=== PATIENT | female | born 1990 | race Caucasian/White ===

== ENCOUNTER 2020-11-16 11:09 | Outpatient (REF) | payer OTHER, SELFPAY ==
[2020-11-16 13:44] LABS: Hematocrit 38.9 % (37-47); Hemoglobin 12.9 g/dl (12.0-16.0); Mean Corpuscular HGB Conc 33.2 g/dl (31.0-35.0); Mean Corpuscular Hemoglobin 29.1 pg (27.0-33.0); Mean Corpuscular Volume 87.8 fL (80-98); Mean Platelet Volume 10.5 fL (9.4-12.3); Platelet Count 291 X10*3/uL (160-400); Red Blood Count 4.43 X10*6/uL (4.20-5.50); Red Cell Distribution Width 12.3 % (11.0-16.0); White Blood Count 6.8 X10*3/uL (4.8-10.8)
[2020-11-16 14:25] LABS: Alanine Aminotransferase 9 U/L (0-31); Albumin Level 4.6 g/dL (3.5-5.0); Alkaline Phosphatase 78 U/L (39-117); Anion Gap 13 (12-20); Aspartate Amino Transferase 18 U/L (5-31); Bilirubin Direct 0.2 mg/dL (0.0-0.5); Bilirubin Total 0.7 mg/dL (0.0-1.0); Blood Urea Nitrogen 9 mg/dL (9-16); Calcium 9.1 mg/dL (8.4-10.2); Carbon Dioxide 25 mmol/L (22-29); Chloride 107 mmol/L (96-108); Cholesterol 173 mg/dL; Estimated Glomerular Filt Rate > 60; Glucose Fasting 104 mg/dL (60-99); HDL Cholesterol 50 mg/dL; LDL Cholesterol Calculated 113 mg/dl; Potassium 4.6 mmol/L (3.3-5.1); Sodium 140 mmol/L (135-145); Total Protein 7.4 g/dL (6.5-8.0); Triglycerides 52 mg/dL
[2020-11-16 14:36] LABS: TSH reflex Free T4 0.61 uIU/mL (0.32-4.0)
== END 2020-11-16 11:10 | disposition home or self-care (01) ==
LOC: HO.WFDLDS 11:09
PROVIDERS: Visit Provider Hospitalist
DX: Z00.00 Encounter for general adult medical examination without abnormal findings (principal)
CPT/HCPCS: 36415; 80048; 80061; 80076; 84443; 85027

== ENCOUNTER 2021-04-22 14:08 | Outpatient (REF) | payer OTHER, SELFPAY ==
[2021-04-22 15:03] LABS: MANUAL DIFF FLAG NO
[2021-04-22 15:07] LABS: Basophils Percent Auto 0.3 % (0-2); Eosinophils Absolute Auto 0.1 X10*3/uL (0.0-0.4); Eosinophils Percent Auto 0.9 % (0-4); Hematocrit 39.8 % (37-47); Hemoglobin 13.5 g/dl (12.0-16.0); Imm Gran Abs Auto 0.06 X10*3/uL (0.00-0.03); Imm Gran Pct Auto 0.6 % (0.0-0.4); Lymphocytes Absolute Auto 2.2 X10*3/uL (1.2-4.9); Lymphocytes Percent Auto 22.6 % (20-40); Mean Corpuscular HGB Conc 33.9 g/dl (31.0-35.0); Mean Corpuscular Hemoglobin 29.5 pg (27.0-33.0); Mean Corpuscular Volume 86.9 fL (80-98); Mean Platelet Volume 10.4 fL (9.4-12.3); Monocytes Absolute Auto 0.5 X10*3/uL (0.1-1.2); Neutrophils Absolute Auto 6.8 X10*3/uL (2.0-8.3); Neutrophils Percent Auto 70.6 % (45-73); Platelet Count 312 X10*3/uL (160-400); Red Blood Count 4.58 X10*6/uL (4.20-5.50); White Blood Count 9.6 X10*3/uL (4.8-10.8)
[2021-04-22 15:21] LABS: Alanine Aminotransferase 8 U/L (0-31); Albumin Level 4.5 g/dL (3.5-5.0); Alkaline Phosphatase 75 U/L (39-117); Anion Gap 15 (12-20); Aspartate Amino Transferase 15 U/L (5-31); Bilirubin Total 0.5 mg/dL (0.0-1.0); Blood Urea Nitrogen 8 mg/dL (9-16); Calcium 9.7 mg/dL (8.4-10.2); Carbon Dioxide 24 mmol/L (22-29); Chloride 106 mmol/L (96-108); Estimated Glomerular Filt Rate > 60; Glucose Random 101 mg/dL (60-115); Iron 94 mcg/dL (30-160); Percent Iron Saturation 28 % (15-50); Potassium 4.1 mmol/L (3.3-5.1); Sodium 141 mmol/L (135-145); Total Iron Binding Capacity 332 mcg/dL (228-428); Total Protein 7.4 g/dL (6.5-8.0); Unsaturated Iron Binding 238 ug/dL
[2021-04-22 15:46] LABS: Vitamin B12 805 pg/mL (200-900)
[2021-04-25 15:22] LABS: Gliadin Deamidated IgA Ab 3 Units; Gliadin Deamidated IgG Ab 1 Units
[2021-04-25 22:26] LABS: Transglutaminase Ab IgG 1 U/mL; Transglutaminase IgA 1 U/mL
[2021-04-26 13:26] LABS: Vitamin D 25-OH, D2 <4 ng/mL; Vitamin D 25-OH, D3 47 ng/mL; Vitamin D 25-OH, Total 47 ng/mL (30-100)
== END 2021-04-22 14:09 | disposition home or self-care (01) ==
LOC: HO.LAB 14:08
PROVIDERS: PCP Internal Medicine; Visit Provider Internal Medicine
DX: R10.9 Unspecified abdominal pain (principal); D64.9 Anemia, unspecified; E66.3 Overweight; E55.9 Vitamin D deficiency, unspecified
CPT/HCPCS: 36415; 80053; 82306; 82607; 83516; 83540; 85025

== ENCOUNTER 2021-07-30 12:17 | Emergency (ER) | payer OTHER, SELFPAY ==
[2021-07-30 12:23] VITALS: BP 143/95; PULSE 115; RESP 18; TEMP 37.2; O2SAT 98; BMI 31.1
--- NOTE | 2021-07-30 13:22 | ED.ANXIETY ---
HPI - Anxiety General Chief Complaint: Anxiety <Linda Ragsdale MD - Last Filed: 07/30/21 13:23> Stated Complaint: panic attack <Linda Ragsdale MD - Last Filed: 07/30/21 13:23> Time Seen by Provider: 07/30/21 13:18 <Linda Ragsdale MD - Last Filed: 07/30/21 13:23> History of Present Illness HPI narrative: 31 years old history of anxiety. History of fibromyalgia. Presented today feeling anxious. Patient denies any suicidal homicidal ideation. Requesting for help. Has no specific complaints. <Linda Ragsdale MD - Last Filed: 07/30/21 13:23> Related Data Home Medications: Home Medications Medication Instructions Recorded Confirmed duloxetine 20 mg capsule,delayed 1 cap PO DAILY 07/30/21 07/30/21 release Previous Rx's Medication Instructions Recorded aripiprazole 5 mg tablet (Abilify) 5 mg PO BEDTIME 30 Days #30 tab 04/21/21 escitalopram oxalate 10 mg tablet 10 mg PO DAILY 30 Days #30 tab 05/15/21 ropinirole 0.5 mg tablet 0.5 mg PO BEDTIME 30 Days #30 tab 07/04/21 <Linda Ragsdale MD - Last Filed: 07/30/21 13:23> Allergies/Adverse Reactions: Allergies Allergy/AdvReac Type Severity Reaction Status Date / Time face paint Allergy Intermediate face Uncoded 04/21/21 17:45 breaks out epsom salt AdvReac Severe nimbness Uncoded 04/21/21 17:45 from head to toe. <Linda Ragsdale MD - Last Filed: 07/30/21 13:23> Review of Systems Review of Systems: Positive anxiety Positive weakness All systems reviewed otherwise negative <Linda Ragsdale MD - Last Filed: 07/30/21 13:23> Yes all other systems are reviewed and are negative <Linda Ragsdale MD - Last Filed: 07/30/21 13:23> PMFSH Past Medical History Attestation statement: The following information was validated with the patient. 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 Mother No problems noted. Family/Other Medical history unknown Substance use disorder Family/Other Mental health disorder <Linda Ragsdale MD - Last Filed: 07/30/21 13:23> Social History Social History: Social History Housing: Apartment Alcohol intake: current Alcohol intake frequency: holidays/special occasions only Patient Tobacco Use Status: Never used Tobacco e-Cigarette/Vaping Use: Never Used Second Hand Smoke Exposure: Yes Advance Directives: No Advance Directives Information Provided: Yes service: No Current occupational status: unemployed <Linda Ragsdale MD - Last Filed: 07/30/21 13:23> Physical Exam Vital Signs: Vital Signs: Last Vital Signs Temp 98.8 F 07/30/21 15:49 Pulse 109 H 07/30/21 15:49 Resp 20 07/30/21 15:49 BP 119/71 07/30/21 15:49 Pulse Ox 99 07/30/21 15:49 Body Mass Index 31.1 Appearance: Alert. Oriented X3. No acute distress. Eyes: Pupils equal, round and reactive to light. ENT: Pharynx normal. Neck: Normal inspection. Neck supple. No lymph nodes noted. No crepitus CVS: Normal heart rate and rhythm. Pulses normal. Normal S1 and S2 Respiratory: No respiratory distress. Breath sounds normal. No Wheezing. No rales Abdomen: Soft and nontender. No rigidity. No distention. good BS x4 Skin: Skin warm and dry. Normal skin color. Normal skin turgor. Extremities: No lower extremity edema. Neurovascular intact to all extremities. No Lacerations. No Rash. Cranial nerves grossly intact Neuro: Oriented X 3. No motor deficit. No sensory deficit. Moving all extermities. No slurred speech <Linda Ragsdale MD - Last Filed: 07/30/21 13:23> Vital Signs: Last Vital Signs Temp 98.8 F 07/30/21 15:49 Pulse 109 H 07/30/21 15:49 Resp 20 07/30/21 15:49 BP 119/71 07/30/21 15:49 Pulse Ox 99 07/30/21 15:49 Body Mass Index 31.1 <Daniel Fall MD - Last Filed: 07/30/21 17:27> MDM - Anxiety MDM Narrative Medical decision making narrative: Patient seen by therapist no suicidal ideation/ homicidal feelings advised to follow-up as outpatient with his psychiatrist/PCP <Daniel Fall MD - Last Filed: 07/30/21 17:27> Lab Data Labs: Lab Results 07/30/21 Range/Units 14:17 Urine Opiates Screen Not Detected (Not Detect) Urine Fentanyl Screen Not Detected (Not Detect) Ur Barbiturates Screen Not Detected (Not Detect) Ur Phencyclidine Scrn Not Detected (Not Detect) Ur Amphetamines Screen Not Detected (Not Detect) U Benzodiazepines Scrn Not Detected (Not Detect) Urine Cocaine Screen Not Detected (Not Detect) U Marijuana (THC) Screen Not Detected (Not Detect) <Linda Ragsdale MD - Last Filed: 07/30/21 13:23> Lab Results 07/30/21 Range/Units 14:17 Urine Opiates Screen Not Detected (Not Detect) Urine Fentanyl Screen Not Detected (Not Detect) Ur Barbiturates Screen Not Detected (Not Detect) Ur Phencyclidine Scrn Not Detected (Not Detect) Ur Amphetamines Screen Not Detected (Not Detect) U Benzodiazepines Scrn Not Detected (Not Detect) Urine Cocaine Screen Not Detected (Not Detect) U Marijuana (THC) Screen Not Detected (Not Detect) <Daniel Fall MD - Last Filed: 07/30/21 17:27> Discharge Plan Discharge Clinical Impression: EMELY (generalized anxiety disorder) <Linda Ragsdale MD - Last Filed: 07/30/21 13:23> Patient Disposition: Home, Self-Care <Linda Ragsdale MD - Last Filed: 07/30/21 13:23> Instructions: Anxiety (ED) <Linda Ragsdale MD - Last Filed: 07/30/21 13:23> Additional Instructions: Follow-up with your PCP and take your medications as prescribed <Linda Ragsdale MD - Last Filed: 07/30/21 13:23> Prescriptions: No Action escitalopram oxalate 10 mg tablet 10 mg PO DAILY 30 Days Qty: 30 RF: 6 ropinirole 0.5 mg tablet 0.5 mg PO BEDTIME 30 Days Qty: 30 RF: 0 duloxetine 20 mg capsule,delayed release(DR/EC) 1 cap PO DAILY RF: 0 aripiprazole [Abilify] 5 mg tablet 5 mg PO BEDTIME 30 Days Qty: 30 RF: 0 <Linda Ragsdale MD - Last Filed: 07/30/21 13:23>
[2021-07-30 15:09] LABS: Amphetamine Screen Urine Not Detected (Not Detect); Barbiturates, Urine Not Detected (Not Detect); Benzodiazepines Screen Urine Not Detected (Not Detect); Cannabinoid Screen Urine Not Detected (Not Detect); Cocaine Screen Urine Not Detected (Not Detect); Fentanyl, urine Not Detected (Not Detect); Opiate Screen Urine Not Detected (Not Detect); Phencyclidine Screen Urine Not Detected (Not Detect)
--- NOTE | 2021-07-30 15:10 | PC.NURSE ---
per n, clinical reviewer to be here for eval within the hour.
[2021-07-30] MEDS: LORazepam 0.5 MG TABLET PO (15:36)
[2021-07-30 15:49] VITALS: BP 119/71; PULSE 109; RESP 20; TEMP 37.1; O2SAT 99
[2021-07-30] MEDS: Ondansetron ODT 4 MG TAB.RAPDIS TRANSLINGU (17:29)
--- NOTE | 2021-07-30 17:36 | MHC.CARE ---
CARE Team met with pt after crisis evaluation was requested and [facility] asked for pt to be screened by the CARE Team before a clinician was sent to see her. Pt is alert and oriented x4, sitting in a wheel chair in her room in the behavioral health pod, dressed in hospital attire. Pt is help seeking. Eye contact intermittent. Speech within normal limits. Mood is anxious with congruent affect. Pt does not seem to be responding to internal stimuli. Pt denies SI/HI/ or self harm urges. Pt denies history of SI/HI/self harm. Pt's mom reports that pt has been off her psychiatric medications for a week and that pt needs something to treat the episodes of shaking. CARE Team educated pt and pt's mom on the levels of psychiatric care. Pt declined psychiatric resources at this time as her PCP prescribes her psychiatric medications and she already has a therapist. Pt feels safe to go home and follow up with her PCP on Sunday. Plan is for pt to be discharged home and to follow up with PCP on Sunday. This disposition was discussed and agreed upon by ED attending physican, Dr. Fall, and on-call psychiatrist, Dr. Ng.
== END 2021-07-30 17:42 | disposition home or self-care (01) ==
PROVIDERS: Emergency Provider Emergency Medicine Emergency Medical Services; PCP Internal Medicine
DX: F41.1 Generalized anxiety disorder (principal); Z79.899 Other long term (current) drug therapy
CPT/HCPCS: 80307; 99283

== ENCOUNTER 2022-01-06 14:25 | Outpatient (REF) | payer OTHER, SELFPAY ==
--- NOTE | ~2022-01-06 | XR_ITS ---
EXAMINATION: BILATERAL HAND X-RAY CLINICAL INFORMATION: Bilateral hand swelling COMPARISON: None TECHNIQUE: 3 views of each hand FINDINGS: Left: Bone alignment is normal. No fracture or dislocation is seen. There is slight flexion at the DIP joint of the fifth finger. Joint spaces are otherwise normal. Soft tissues are normal. Right: Bone alignment is normal. No fracture or dislocation is seen. Joint spaces are normal. Soft tissues are normal. XR/XR hand RT 2V IMPRESSION: Slight flexion at the DIP joint of the left fifth finger. Otherwise unremarkable exam.
--- NOTE | ~2022-01-06 | XR_ITS ---
EXAMINATION: BILATERAL HAND X-RAY CLINICAL INFORMATION: Bilateral hand swelling COMPARISON: None TECHNIQUE: 3 views of each hand FINDINGS: Left: Bone alignment is normal. No fracture or dislocation is seen. There is slight flexion at the DIP joint of the fifth finger. Joint spaces are otherwise normal. Soft tissues are normal. Right: Bone alignment is normal. No fracture or dislocation is seen. Joint spaces are normal. Soft tissues are normal. XR/XR hand LT 2V IMPRESSION: Slight flexion at the DIP joint of the left fifth finger. Otherwise unremarkable exam.
== END 2022-01-06 14:26 | disposition home or self-care (01) ==
LOC: HO.XRAY 14:25
PROVIDERS: PCP Internal Medicine; Visit Provider Internal Medicine
DX: M79.641 Pain in right hand (principal); M79.642 Pain in left hand
CPT/HCPCS: 73120

== ENCOUNTER 2022-09-19 08:31 | Outpatient (REF) | payer OTHER, SELFPAY ==
[2022-09-19 09:19] LABS: Alanine Aminotransferase 26 U/L (0-31); Albumin Level 4.4 g/dL (3.5-5.0); Alkaline Phosphatase 65 U/L (39-117); Anion Gap 13 (12-20); Aspartate Amino Transferase 30 U/L (5-31); Bilirubin Total 0.5 mg/dL (0.0-1.0); Blood Urea Nitrogen 8 mg/dL (9-16); Calcium 9.3 mg/dL (8.4-10.2); Carbon Dioxide 26 mmol/L (22-29); Chloride 106 mmol/L (96-108); Cholesterol 180 mg/dL; Estimated Glomerular Filt Rate > 60; Glucose Fasting 104 mg/dL (60-99); HDL Cholesterol 46 mg/dL; LDL Cholesterol Calculated 115 mg/dl; Potassium 4.2 mmol/L (3.3-5.1); Sodium 141 mmol/L (135-145); Total Protein 7.1 g/dL (6.5-8.0); Triglycerides 99 mg/dL
== END 2022-09-19 08:32 | disposition home or self-care (01) ==
LOC: HO.LAB 08:31
PROVIDERS: PCP Internal Medicine; Visit Provider Internal Medicine
DX: Z00.00 Encounter for general adult medical examination without abnormal findings (principal)
CPT/HCPCS: 36415; 80053; 80061

== ENCOUNTER 2022-10-19 17:06 | Emergency (ER) | payer OTHER, SELFPAY ==
--- NOTE | ~2022-10-19 | CT_ITS ---
EXAMINATION: CT HEAD WITHOUT CONTRAST CLINICAL INFORMATION: Increased head pressure. Losing balance. COMPARISON: None. TECHNIQUE: Contiguous axial imaging was performed from the skullbase to vertex without intravenous administration of contrast. This CT examination was performed using dose optimization techniques as appropriate, variously including the following: *Automated exposure control *Adjustment of mA and/or kV according to patient size (this includes techniques or standardized protocols for targeted exams where dose is matched to indication/reason for exam; i.e. extremities or head) *Use of iterative reconstruction technique DLP: 622 mGy-cm. FINDINGS: There is no evidence of acute intracranial hemorrhage or territorial infarction. No abnormal mass effect or midline shift is seen. Miller to white matter differentiation is well preserved. No extra-axial fluid collections are identified. The ventricles are normal in size. There is no abnormal attenuation within the brain parenchyma. The osseous structures and soft tissues are normal. The mastoid air cells and visualized portions of the paranasal sinuses are well aerated. CT/CT head/brain wo IV con IMPRESSION: No acute intracranial pathology.
[2022-10-19 17:09] VITALS: BP 162/74; PULSE 88; RESP 16; TEMP 36.8; O2SAT 98; BMI 24.2
[2022-10-19 18:49] LABS: MANUAL DIFF FLAG NO
[2022-10-19 18:50] LABS: Basophils Absolute Auto 0.1 X10*3/uL (0.0-0.2); Basophils Percent Auto 0.5 % (0-2); Eosinophils Absolute Auto 0.3 X10*3/uL (0.0-0.4); Eosinophils Percent Auto 2.6 % (0-4); Hematocrit 37.5 % (37.0-47.0); Hemoglobin 12.7 g/dl (12.0-16.0); Imm Gran Abs Auto 0.07 X10*3/uL (0.00-0.03); Imm Gran Pct Auto 0.6 % (0.0-0.4); Lymphocytes Absolute Auto 3.1 X10*3/uL (1.2-4.9); Lymphocytes Percent Auto 26.4 % (20-40); Mean Corpuscular HGB Conc 33.9 g/dl (31.0-35.0); Mean Corpuscular Volume 88.7 fL (80.0-98.0); Mean Platelet Volume 10.2 fL (9.4-12.3); Monocytes Absolute Auto 0.7 X10*3/uL (0.1-1.2); Monocytes Percent Auto 5.6 % (2-11); Neutrophils Absolute Auto 7.4 x10*3/uL (2.0-8.3); Neutrophils Percent Auto 64.3 % (45-73); Platelet Count 311 X10*3/uL (160-400); Red Blood Count 4.23 X10*6/uL (4.20-5.50); Red Cell Distribution Width 12.4 % (11.0-16.0); White Blood Count 11.5 X10*3/uL (4.8-10.8)
--- NOTE | 2022-10-19 18:52 | ECG_ITS ---
Test Reason : FALL Blood Pressure : / mmHG Vent. Rate : 073 BPM Atrial Rate : 073 BPM P-R Int : 132 ms QRS Dur : 076 ms QT Int : 394 ms P-R-T Axes : 045 077 011 degrees QTc Int : 434 ms Normal sinus rhythm Normal ECG No previous ECGs available Referred By: Barbara Ramesh Electronically Signed By:Los Springer
[2022-10-19 19:09] LABS: Alanine Aminotransferase 11 U/L (0-31); Albumin Level 4.5 g/dL (3.5-5.0); Alkaline Phosphatase 82 U/L (39-117); Anion Gap 16 (12-20); Aspartate Amino Transferase 16 U/L (5-31); Bilirubin Total 0.4 mg/dL (0.0-1.0); Blood Urea Nitrogen 8 mg/dL (9-16); Calcium 9.6 mg/dL (8.4-10.2); Carbon Dioxide 25 mmol/L (22-29); Chloride 103 mmol/L (96-108); Creatinine Clr Calc Pharmacy 100.2; Estimated Glomerular Filt Rate > 60; Glucose Fasting 92 mg/dL (60-99); Sodium 140 mmol/L (135-145); Total Protein 7.2 g/dL (6.5-8.0)
[2022-10-19 19:49] LABS: MANUAL DIFF FLAG NO
[2022-10-19 19:57] LABS: Basophils Percent Auto 0.3 % (0-2); Eosinophils Absolute Auto 0.3 X10*3/uL (0.0-0.4); Eosinophils Percent Auto 2.3 % (0-4); Hematocrit 37.6 % (37.0-47.0); Hemoglobin 12.6 g/dl (12.0-16.0); Imm Gran Abs Auto 0.09 X10*3/uL (0.00-0.03); Imm Gran Pct Auto 0.8 % (0.0-0.4); Lymphocytes Absolute Auto 3.1 X10*3/uL (1.2-4.9); Lymphocytes Percent Auto 27.2 % (20-40); Mean Corpuscular HGB Conc 33.5 g/dl (31.0-35.0); Mean Corpuscular Hemoglobin 29.8 pg (27.0-33.0); Mean Corpuscular Volume 88.9 fL (80.0-98.0); Mean Platelet Volume 10.5 fL (9.4-12.3); Monocytes Absolute Auto 0.7 X10*3/uL (0.1-1.2); Monocytes Percent Auto 5.6 % (2-11); Neutrophils Absolute Auto 7.4 x10*3/uL (2.0-8.3); Neutrophils Percent Auto 63.8 % (45-73); Platelet Count 328 X10*3/uL (160-400); Red Blood Count 4.23 X10*6/uL (4.20-5.50); Red Cell Distribution Width 12.4 % (11.0-16.0); White Blood Count 11.5 X10*3/uL (4.8-10.8)
[2022-10-19 19:59] LABS: Appearance Urine Cloudy; Color Urine Yellow; Glucose Urine UA Negative (Negative); Leukocyte Esterase Urine Negative (Negative); Nitrite Urine Negative (Negative); PH 7.5 (5.0-9.0); Specific Gravity - Urine 1.015 (1.005-1.025); Urine Blood Negative (Negative); Urine Ketones Negative (Negative); Urine Protein Negative (Neg-Trace)
[2022-10-19 20:00] LABS: Amphetamine Screen Urine Not Detected (Not Detect); Barbiturates, Urine Not Detected (Not Detect); Benzodiazepines Screen Urine Not Detected (Not Detect); Cannabinoid Screen Urine Not Detected (Not Detect); Cocaine Screen Urine Not Detected (Not Detect); Fentanyl, urine Not Detected (Not Detect); Opiate Screen Urine Not Detected (Not Detect); Phencyclidine Screen Urine Not Detected (Not Detect)
[2022-10-19 20:14] LABS: Alanine Aminotransferase 9 U/L (0-31); Albumin Level 4.5 g/dL (3.5-5.0); Alkaline Phosphatase 82 U/L (39-117); Anion Gap 13 (12-20); Aspartate Amino Transferase 16 U/L (5-31); Bilirubin Direct < 0.2 mg/dL (0.0-0.5); Bilirubin Total 0.4 mg/dL (0.0-1.0); Blood Urea Nitrogen 8 mg/dL (9-16); Calcium 9.1 mg/dL (8.4-10.2); Carbon Dioxide 26 mmol/L (22-29); Chloride 102 mmol/L (96-108); Creatinine Clr Calc Pharmacy 100.2; Estimated Glomerular Filt Rate > 60; Glucose Random 95 mg/dL (60-115); HCG Quantitative < 2 mIU/mL; Potassium 3.8 mmol/L (3.3-5.1); Sodium 137 mmol/L (135-145); Total Protein 7.1 g/dL (6.5-8.0); Troponin-I High Sensitivity < 3.5 ng/L (<3.5-17.0)
--- NOTE | 2022-10-19 21:33 | ED.HA ---
HPI - Headache General Chief Complaint: Headache Stated Complaint: head pressure, sent from urgent care Time Seen by Provider: 10/19/22 21:14 Source: patient and family Mode of arrival: ambulatory History of Present Illness HPI Narrative: 32-year-old female who presents with headache for about 6 months which is been worsening over time and is intermittent in nature and she describes as primarily over the frontal aspect without visual or speech changes. Patient states that she had a mechanical fall last week. She otherwise denies any fever, chills, history of migraines, unilateral numbness/weakness/tingling. Related Data Home Medications Medication Instructions Recorded Confirmed prazosin 2 mg capsule 2 mg PO BEDTIME 03/13/22 09/14/22 Previous Rx's Medication Instructions Recorded escitalopram oxalate 10 mg tablet 10 mg PO DAILY 30 days #30 tabs 11/10/21 buspirone 10 mg tablet 10 mg PO TID 30 days #90 tabs 01/08/22 loratadine 10 mg tablet 10 mg PO DAILY 90 days #90 tabs 06/06/22 Allergies Allergy/AdvReac Type Severity Reaction Status Date / Time pine nut Allergy Mild Rash Verified 10/19/22 16:34 face paint Allergy Intermediate face Uncoded 10/19/22 16:34 breaks out epsom salt AdvReac Severe nimbness Uncoded 10/19/22 16:34 from head to toe. Review of Systems Review of Systems: Pertinent positives and negatives as stated in HPI [facility] Past Medical History Source: nursing notes reviewed Medical History Abdominal pain EMELY (generalized anxiety disorder) Hypovitaminosis D Insomnia due to other mental disorder Left hand pain Mild major depression, single episode Overweight (BMI 25.0-29.9) Physical exam Right hand pain Seizure-like activity Surgical History History of carpal tunnel surgery Family History Family History Father No problems noted. Mother No problems noted. Family/Other Medical history unknown Substance use disorder Family/Other Mental health disorder Social History Social History Housing: Apartment Alcohol intake: current Alcohol intake frequency: holidays/special occasions only Patient Tobacco Use Status: Never used Tobacco e-Cigarette/Vaping Use: Never Used Second Hand Smoke Exposure: Yes Advance Directives: No Advance Directives Information Provided: No service: No Current occupational status: unemployed Cognitive needs: No Hearing needs: No Vision needs: No Physical Exam Vital Signs: Vital Signs: Last Vital Signs Temp 98.2 F 10/19/22 17:09 Pulse 88 10/19/22 17:09 Resp 16 10/19/22 17:09 BP 162/74 H 10/19/22 17:09 Pulse Ox 98 10/19/22 17:09 O2 Del Method 10/19/22 17:09 BMI result Body Mass Index 24.2 VITAL SIGNS: Reviewed. GENERAL: Well developed, well nourished, in no acute distress. HEAD: Normocephalic/atraumatic EYES: PERRLA, EOMI EARS: Ext canals without abnormality, TMs non-bulging and non-erythematous NOSE: Nares patent bilateral with boggy turbinates noted bilaterally, with tenderness on palpation over maxillary OROPHARYNX: no oral lesions noted, posterior pharynx clear NECK: Supple, no adenopathy LUNGS: Normal breath sounds. No adventitious sounds or accessory muscle use. SpO2<98> CARDIOVASCULAR: Regular rate and rhythm without noted murmurs ABDOMEN: Soft, non-tender, non-distended with bowel sounds. MUSCULOSKELETAL: No tenderness, deformities, or effusions noted on gross inspection. EXTREMITIES: No cyanosis, clubbing or edema. SKIN: Inspection of the skin reveals no rashes NEUROLOGIC: Alert and oriented x 4. Strength and sensation to light touch were grossly intact x 4. Medical Decision Making Medical Decision Making [facility] Narrative: 32-year-old female and on review of all investigations my interpretation is a patient is experiencing significant sinus pressure and pain likely secondary to the weather/temperature changes. 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 Differential Diagnosis Differential Diagnoses: The differential diagnosis associated with the presentation includes Please see the discussion above Lab Data [facility] Lab Attestation statement: I reviewed the patient's lab results. Please see the discussion above 10/19/22 19:39 10/19/22 19:39 Labs: Lab Results 02/02/23 02/02/23 02/02/23 Range/Units 18:45 18:45 19:39 WBC 11.5 H 11.5 H (4.8-10.8) X10*3/uL RBC 4.23 4.23 (4.20-5.50) X10*6/uL Hgb 12.7 12.6 (12.0-16.0) g/dl Hct 37.5 37.6 (37.0-47.0) % MCV 88.7 88.9 (80.0-98.0) fL MCH 30.0 29.8 (27.0-33.0) pg MCHC 33.9 33.5 (31.0-35.0) g/dl RDW 12.4 12.4 (11.0-16.0) % Plt Count 311 328 (160-400) X10*3/uL MPV 10.2 10.5 (9.4-12.3) fL Immature Gran % (Auto) 0.6 H 0.8 H (0.0-0.4) % Neut % (Auto) 64.3 63.8 (45-73) % Lymph % (Auto) 26.4 27.2 (20-40) % [place] % (Auto) 5.6 5.6 (2-11) % Eos % (Auto) 2.6 2.3 (0-4) % Baso % (Auto) 0.5 0.3 (0-2) % Lymph # (Auto) 3.1 3.1 (1.2-4.9) X10*3/uL [place] # (Auto) 0.7 0.7 (0.1-1.2) X10*3/uL Eos # (Auto) 0.3 0.3 (0.0-0.4) X10*3/uL Baso # (Auto) 0.1 0.0 (0.0-0.2) X10*3/uL Abs Immat Gran (auto) 0.07 H 0.09 H (0.00-0.03) X10*3/uL Absolute Neuts (auto) 7.4 7.4 (2.0-8.3) x10*3/uL Absolute Nucleated RBC 0.000 0.000 (0.0-0.012) X10*3/uL Nucleated RBC % (auto) 0.0 0.0 (0.0-0.2) /100WBC Sodium 140 (135-145) mmol/L Potassium 4.0 (3.3-5.1) mmol/L Chloride 103 (96-108) mmol/L Carbon Dioxide 25 (22-29) mmol/L Anion Gap 16 (12-20) BUN 8 L (9-16) mg/dL Creatinine 0.74 (0.5-1.4) mg/dL Estim Creat Clear Calc 100.2 Estimated GFR > 60 Random Glucose (60-115) mg/dL Fasting Glucose 92 (60-99) mg/dL Calcium 9.6 (8.4-10.2) mg/dL Total Bilirubin 0.4 (0.0-1.0) mg/dL Direct Bilirubin (0.0-0.5) mg/dL AST 16 (5-31) U/L ALT 11 (0-31) U/L Alkaline Phosphatase 82 (39-117) U/L Troponin I High Sens (<3.5-17.0) ng/L Total Protein 7.2 (6.5-8.0) g/dL Albumin 4.5 (3.5-5.0) g/dL Beta HCG, Quant mIU/mL Urine Color Urine Appearance Urine pH (5.0-9.0) Ur Specific [place] (1.005-1.025) Urine Protein (Neg-Trace) mg/dL Urine Glucose (UA) (Negative) mg/dL Urine Ketones (Negative) mg/dL Urine Blood (Negative) Urine Nitrite (Negative) Ur Leukocyte Esterase (Negative) Urine Opiates Screen (Not Detect) Urine Fentanyl Screen (Not Detect) Ur Barbiturates Screen (Not Detect) Ur Phencyclidine Scrn (Not Detect) Ur Amphetamines Screen (Not Detect) U Benzodiazepines Scrn (Not Detect) Urine Cocaine Screen (Not Detect) U Marijuana (THC) Screen (Not Detect) 10/19/22 10/19/22 10/19/22 Range/Units 19:39 19:39 19:44 WBC (4.8-10.8) X10*3/uL RBC (4.20-5.50) X10*6/uL Hgb (12.0-16.0) g/dl Hct (37.0-47.0) % MCV (80.0-98.0) fL MCH (27.0-33.0) pg MCHC (31.0-35.0) g/dl RDW (11.0-16.0) % Plt Count (160-400) X10*3/uL MPV (9.4-12.3) fL Immature Gran % (Auto) (0.0-0.4) % Neut % (Auto) (45-73) % Lymph % (Auto) (20-40) % [place] % (Auto) (2-11) % Eos % (Auto) (0-4) % Baso % (Auto) (0-2) % Lymph # (Auto) (1.2-4.9) X10*3/uL [place] # (Auto) (0.1-1.2) X10*3/uL Eos # (Auto) (0.0-0.4) X10*3/uL Baso # (Auto) (0.0-0.2) X10*3/uL Abs Immat Gran (auto) (0.00-0.03) X10*3/uL Absolute Neuts (auto) (2.0-8.3) x10*3/uL Absolute Nucleated RBC (0.0-0.012) X10*3/uL Nucleated RBC % (auto) (0.0-0.2) /100WBC Sodium 137 (135-145) mmol/L Potassium 3.8 (3.3-5.1) mmol/L Chloride 102 (96-108) mmol/L Carbon Dioxide 26 (22-29) mmol/L Anion Gap 13 (12-20) BUN 8 L (9-16) mg/dL Creatinine 0.74 (0.5-1.4) mg/dL Estim Creat Clear Calc 100.2 Estimated GFR > 60 Random Glucose 95 (60-115) mg/dL Fasting Glucose (60-99) mg/dL Calcium 9.1 (8.4-10.2) mg/dL Total Bilirubin 0.4 (0.0-1.0) mg/dL Direct Bilirubin < 0.2 (0.0-0.5) mg/dL AST 16 (5-31) U/L ALT 9 (0-31) U/L Alkaline Phosphatase 82 (39-117) U/L Troponin I High Sens < 3.5 (<3.5-17.0) ng/L Total Protein 7.1 (6.5-8.0) g/dL Albumin 4.5 (3.5-5.0) g/dL Beta HCG, Quant < 2 mIU/mL Urine Color Yellow Urine Appearance Cloudy Urine pH 7.5 (5.0-9.0) Ur Specific [place] 1.015 (1.005-1.025) Urine Protein Negative (Neg-Trace) mg/dL Urine Glucose (UA) Negative (Negative) mg/dL Urine Ketones Negative (Negative) mg/dL Urine Blood Negative (Negative) Urine Nitrite Negative (Negative) Ur Leukocyte Esterase Negative (Negative) Urine Opiates Screen (Not Detect) Urine Fentanyl Screen (Not Detect) Ur Barbiturates Screen (Not Detect) Ur Phencyclidine Scrn (Not Detect) Ur Amphetamines Screen (Not Detect) U Benzodiazepines Scrn (Not Detect) Urine Cocaine Screen (Not Detect) U Marijuana (THC) Screen (Not Detect) 10/19/22 Range/Units 19:44 WBC (4.8-10.8) X10*3/uL RBC (4.20-5.50) X10*6/uL Hgb (12.0-16.0) g/dl Hct (37.0-47.0) % MCV (80.0-98.0) fL MCH (27.0-33.0) pg MCHC (31.0-35.0) g/dl RDW (11.0-16.0) % Plt Count (160-400) X10*3/uL MPV (9.4-12.3) fL Immature Gran % (Auto) (0.0-0.4) % Neut % (Auto) (45-73) % Lymph % (Auto) (20-40) % [place] % (Auto) (2-11) % Eos % (Auto) (0-4) % Baso % (Auto) (0-2) % Lymph # (Auto) (1.2-4.9) X10*3/uL [place] # (Auto) (0.1-1.2) X10*3/uL Eos # (Auto) (0.0-0.4) X10*3/uL Baso # (Auto) (0.0-0.2) X10*3/uL Abs Immat Gran (auto) (0.00-0.03) X10*3/uL Absolute Neuts (auto) (2.0-8.3) x10*3/uL Absolute Nucleated RBC (0.0-0.012) X10*3/uL Nucleated RBC % (auto) (0.0-0.2) /100WBC Sodium (135-145) mmol/L Potassium (3.3-5.1) mmol/L Chloride (96-108) mmol/L Carbon Dioxide (22-29) mmol/L Anion Gap (12-20) BUN (9-16) mg/dL Creatinine (0.5-1.4) mg/dL Estim Creat Clear Calc Estimated GFR Random Glucose (60-115) mg/dL Fasting Glucose (60-99) mg/dL Calcium (8.4-10.2) mg/dL Total Bilirubin (0.0-1.0) mg/dL Direct Bilirubin (0.0-0.5) mg/dL AST (5-31) U/L ALT (0-31) U/L Alkaline Phosphatase (39-117) U/L Troponin I High Sens (<3.5-17.0) ng/L Total Protein (6.5-8.0) g/dL Albumin (3.5-5.0) g/dL Beta HCG, Quant mIU/mL Urine Color Urine Appearance Urine pH (5.0-9.0) Ur Specific [place] (1.005-1.025) Urine Protein (Neg-Trace) mg/dL Urine Glucose (UA) (Negative) mg/dL Urine Ketones (Negative) mg/dL Urine Blood (Negative) Urine Nitrite (Negative) Ur Leukocyte Esterase (Negative) Urine Opiates Screen Not Detected (Not Detect) Urine Fentanyl Screen Not Detected (Not Detect) Ur Barbiturates Screen Not Detected (Not Detect) Ur Phencyclidine Scrn Not Detected (Not Detect) Ur Amphetamines Screen Not Detected (Not Detect) U Benzodiazepines Scrn Not Detected (Not Detect) Urine Cocaine Screen Not Detected (Not Detect) U Marijuana (THC) Screen Not Detected (Not Detect) Independent Interpretation I performed an independent interpretation of an: EKG Interpretation: Normal sinus rhythm, HR-73, no STEMI, [place]/QRS/QTC is within normal limits. Radiology Impression Radiologist Impression: My interpretation is in agreement with radiology's impression of the imaging study. Discharge Plan Discharge Clinical Impression: Frontal sinus pain Patient Disposition: Home, Self-Care Instructions: Sinusitis (ED) Additional Instructions: 1. Recommend the combination of antihistamine (Claritin, Shea) in conjunction with Flonase (fluticasone). Also consider saline sprays within the nose for additional symptom relief. 2. Recommend bedside humidified air while sleeping. 3. Follow-up with primary care provider the next 1-2 days and further discuss possible referral to ENT. Return to the ER for worsening symptoms. Prescriptions: No Action escitalopram oxalate 10 mg tablet 10 mg PO DAILY 30 Days Qty: 30 6RF buspirone 10 mg tablet 10 mg PO TID 30 Days Qty: 90 2RF loratadine 10 mg tablet 10 mg PO DAILY 90 Days Qty: 90 1RF prazosin 2 mg capsule 2 mg PO BEDTIME Referrals: Malika Sifuentes MD [Primary Care Provider] -
== END 2022-10-20 00:02 | disposition home or self-care (01) ==
PROVIDERS: Emergency Medicine; Emergency Provider Student in an Organized Health Care Education/Training Program; PCP Internal Medicine
DX: J32.1 Chronic frontal sinusitis (principal); Z79.899 Other long term (current) drug therapy
CPT/HCPCS: 36415; 70450; 80048; 80053; 80076; 80307; 81003; 84484; 84702; 85025; 93005; 99283; 99284

== ENCOUNTER 2023-02-01 16:32 | Outpatient (REF) | payer OTHER, SELFPAY ==
--- NOTE | ~2023-02-01 | XR_ITS ---
EXAMINATION: XR HIP, RIGHT CLINICAL INFORMATION: Pain. COMPARISON: None available. TECHNIQUE: AP and frog-leg lateral views of the right hip are submitted, together with a frontal view of the pelvis. FINDINGS: Bony alignment and mineralization are normal. No fracture. Alignment is anatomic. The bilateral acetabular joint spaces are symmetric and well-maintained. The femoral heads are smooth. The sacroiliac joints are symmetric and well-maintained. The pubic symphysis is intact. A 4 mm left renal lower pole calculus is questioned. There is a left pelvic phlebolith. No foreign body is noted. XR/XR hip RT min 2V IMPRESSION: 1. No unusual degenerative changes are seen of the hips. 2. A 4 mm left renal lower pole calculus is questioned.
== END 2023-02-01 16:33 | disposition home or self-care (01) ==
LOC: HO.XRAY 16:32
PROVIDERS: PCP Internal Medicine; Visit Provider Internal Medicine
DX: M25.551 Pain in right hip (principal)
CPT/HCPCS: 73502

== ENCOUNTER 2023-04-05 08:53 | Outpatient (AMB) | payer OTHER, SELFPAY ==
--- NOTE | 2023-04-05 07:05 | MHC.OFFVIS ---
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 HPI HPI Comments History of Present Illness Details Mirlande is a 33-year-old female who presents today to the office as a new patient for evaluation of calculus of kidney. 04/05/2023-- The patient has a history of generalized anxiety disorder. She states that she has had intermittent abdominal pain. She had a recent hip x-ray and was told she had a kidney stone. I reviewed the hip x-ray dated 02/01/23. I reviewed the films and there is a calcification that may be in the area of left renal fossa.? I discussed with her about the further evaluation with renal ultrasound. The patient states that she voids every few hours during the day. She denies prior antibiotic treatment for UTI. She states that she has been having irregular menstrual cycles and has an appointment with her RIVET PASSER in April. Evaluation today-- UA -- no sign of infection. On exam, there is diffuse abdominal tenderness and mild CVA tenderness bilaterally. Plan: We are going to get an ultrasound of her kidneys and bladder.. Follow up in 10 weeks pending the ultrasound results. [facility] Medical History Abdominal pain EMELY (generalized anxiety disorder) Hypovitaminosis D Insomnia due to other mental disorder Left hand pain Mild major depression, single episode Overweight (BMI 25.0-29.9) Physical exam Right hand pain Seizure-like activity Surgical History History of carpal tunnel surgery Family History Father No problems noted. Mother No problems noted. Family/Other Medical history unknown Substance use disorder Family/Other Mental health disorder Social History Housing: Apartment Alcohol intake: current Alcohol intake frequency: holidays/special occasions only Patient Tobacco Use Status: Never used Tobacco e-Cigarette/Vaping Use: Never Used Second Hand Smoke Exposure: Yes service: No Current occupational status: unemployed Cognitive needs: No Hearing needs: No Vision needs: No Review of Systems Const All systems reviewed & are unremarkable except as noted in HPI and below Reports no additional complaints Eyes Reports no additional complaints ENT Reports no additional complaints Card Denies dyspnea Resp Denies cough and Denies dyspnea GI Reports no additional complaints Reports no additional complaints Musc Reports no additional complaints Skin/Breast Denies rash and Denies unusual bruising Neuro Reports no additional complaints Psych Reports no additional complaints Endo Reports no additional complaints Salazar/Lymph Reports no additional complaints Aller/Immun Reports no additional complaints Physical Exam Const General: cooperative, healthy appearing and no acute distress Orientation/consciousness: patient oriented x3 HEENT Head: Yes normal to inspection, Yes normocephalic and Yes atraumatic Eyes Conjunctivae: conjunctivae normal Neck Neck: Yes normal visual inspection and Yes trachea midline Chest Chest palpation & inspection: normal inspection of the chest Resp Effort & Inspection: normal respiratory effort Cardio Rate: regular rate GI Inspection: Yes normal to inspection Palpation (GI): Soft to palpation and Tenderness to palpation present (GI) General: Yes CVA tenderness (mild bilaterally) Back/Spine/Pelvis Back: CVA tenderness (mild bilaterally) Skin General skin exam: no rashes or lesions noted Neuro General: patient oriented x3 Extrem General: No edema Psych Appearance: grossly normal Results AMB Urinalysis, Automated UA Leukoctes 70 Rudi/uL Last Edit by ZULEIKA Kuamri on 04/05/23 09:14 1+ Doris Song 04/05/23 09:14 UA Nitrite Negative Last Edit by ZULEIKA Kumari on 04/05/23 09:14 UA Urobilinogen 0.2 mg/dL Last Edit by ZULEIKA Kumari on 04/05/23 09:14 UA Protein 15 mg/dL Last Edit by ZULEIKA Kumari on 04/05/23 09:14 UA pH 6.0 Last Edit by ZULEIKA Kumari on 04/05/23 09:14 UA Blood 0 Art/uL Last Edit by ZULEIKA Kumari on 04/05/23 09:14 UA Specific [place] 1.020 Last Edit by ZULEIKA Kumari on 04/05/23 09:14 UA Ketone Negative Last Edit by ZULEIKA Kumari on 04/05/23 09:14 UA Bilirubin 0 mg/dL Last Edit by ZULEIKA Kumari on 04/05/23 09:14 UA Glucose 0 mg/dL Last Edit by ZULEIKA Kumari on 04/05/23 09:14 Results Reviewed Results Reviewed: Laboratory Last Values Urine pH (Auto) 6.0 04/05/23 09:07 Specific [place] (Auto) 1.020 04/05/23 09:07 Urine Protein (Auto) 15 mg/dL 04/05/23 09:07 Glucose (UA)(Auto) 0 mg/dL 04/05/23 09:07 Urine Ketones (Auto) Negative 04/05/23 09:07 Urine Blood (Auto) 0 Art/uL 04/05/23 09:07 Urine Nitrite (Auto) Negative 04/05/23 09:07 Urine Bilirubin (Auto) 0 mg/dL 04/05/23 09:07 Urine Urobilinogen (Auto) 0.2 mg/dL 04/05/23 09:07 Leukocyte Esterase (Auto) 70 Rudi/uL 04/05/23 09:07 Assessment & Plan Assessment & Plan (1) Abnormal x-ray: Code(s): R93.89 - Abnormal findings on diagnostic imaging of other specified body structures (2) Abdominal pain: Code(s): R10.9 - Unspecified abdominal pain Qualifiers: Abdominal location: generalized Qualified Code(s): R10.84 - Generalized abdominal pain Plan We are going to get an ultrasound of her kidneys and bladder. Follow up in 10 weeks pending the ultrasound results. Orders: Orders US retroperitoneal comp Today R10.9 - Unspecified abdominal pain AMB Urinalysis Automated Today Z13.9 - Encounter for screening, unspecified Patient Instructions: The patient had an opportunity to ask questions regarding treatment plan. All questions were answered. Imaging, Laboratory studies and physical exam results were discussed and reviewed in detail. No major barriers to understanding were identified. The patient expressed understanding and agreement with the above treatment plan. The patient is aware they should contact our office by phone for worsening of their current condition or the appearance of new symptoms. Compliance is encouraged with any medications and followup testing that is ordered. It is a privilege to be allowed the opportunity to participate in the urologic care of your patient. If you have any questions or concerns regarding treatment for the above conditions please do not hesitate to contact me. The office telephone contact is [phone]. This note is constructed in part using voice recognition software. While every effort has been made to ensure accuracy signal supervisor errors may have been included. Yours sincerely, Drew Sorenson MD Coding Level of Care Code New Pt Level 3 (31941) Diagnoses Abnormal x-ray R93.89 Abdominal pain R10.84 Abdominal location: generalized
== END 2023-04-05 09:33 | disposition home or self-care (01) ==
PROVIDERS: PCP Internal Medicine; Visit Provider Urology
DX: R93.89 Abnormal findings on diagnostic imaging of other specified body structures (principal); R10.84 Generalized abdominal pain
CPT/HCPCS: 99203

== ENCOUNTER → 2023-04-05 08:53 | Outpatient (BNVA) | payer OTHER, SELFPAY | PROVIDERS: PCP Internal Medicine; Visit Provider Urology | DX: R93.89 Abnormal findings on diagnostic imaging of other specified body structures (principal); R10.84 Generalized abdominal pain | CPT/HCPCS: 99202 ==

== ENCOUNTER 2023-04-17 08:51 | Outpatient (REF) | payer OTHER, SELFPAY ==
--- NOTE | ~2023-04-17 | US_ITS ---
EXAMINATION: US RETROPERITONEAL COMPLETE (RENAL) CLINICAL INFORMATION: Unspecified abdominal pain. Possible left kidney stone, calcification noted on recent hip x-ray in area of left renal fossa. COMPARISON: Right hip x-ray 02/01/2023. TECHNIQUE: Real-time imaging of the kidneys and bladder. FINDINGS: RIGHT KIDNEY: 11.5 x 4.3 x 6.1 cm (SAG x AP x TRV). The kidney is normal in size, contour, and echogenicity. Renal cortical thickness is normal. No calculi or focal parenchymal lesions. No hydronephrosis. LEFT KIDNEY: 12.3 x 5.0 x 4.9 cm (SAG x AP x TRV). The kidney is normal in size, contour, and echogenicity. Renal cortical thickness is normal. No calculi or focal parenchymal lesions. No hydronephrosis. BLADDER: Well distended and normal. Bilateral ureteral jets are demonstrated. Prevoid bladder volume is 253 mL. Postvoid bladder volume is 14 mL. US/US retroperitoneal comp IMPRESSION: Unremarkable examination.
== END 2023-04-17 08:52 | disposition home or self-care (01) ==
LOC: HO.HMGCX 08:51
PROVIDERS: PCP Internal Medicine; Visit Provider Urology
DX: R10.9 Unspecified abdominal pain (principal)
CPT/HCPCS: 76770

== ENCOUNTER 2023-05-11 09:57 | Outpatient (REF) | payer OTHER, SELFPAY ==
[2023-05-11 18:28] LABS: CT PCR NOT DETECTED (Not Detect.); NG PCR NOT DETECTED (Not Detect.)
[2023-05-13 13:31] LABS: BV Int Neg Control Negative (Negative); BV Int Pos Control Positive (Positive)
[2023-05-17 01:38] LABS: HPV mRNA E6/E7 rflx Not Detected (Not Detected)
== END 2023-05-11 09:58 | disposition home or self-care (01) ==
LOC: HO.LNP 09:57
PROVIDERS: PCP Internal Medicine; Visit Provider Advanced Practice Midwife
DX: Z01.419 Encounter for gynecological examination (general) (routine) without abnormal findings (principal); Z11.51 Encounter for screening for human papillomavirus (HPV); L68.0 Hirsutism; E66.3 Overweight; Z87.42 Personal history of other diseases of the female genital tract
CPT/HCPCS: 0353U; 87480; 87510; 87624; 87660; 88142

== ENCOUNTER 2023-05-11 09:57 | Outpatient (AMB) | payer OTHER, SELFPAY ==
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
[2023-05-11 10:14] VITALS: BP 120/76; BMI 28.1
== END 2023-05-11 11:29 | disposition home or self-care (01) ==
PROVIDERS: PCP Internal Medicine; Visit Provider Advanced Practice Midwife
DX: Z01.419 Encounter for gynecological examination (general) (routine) without abnormal findings (principal); E66.3 Overweight; L68.0 Hirsutism; Z87.42 Personal history of other diseases of the female genital tract; Z11.3 Encounter for screening for infections with a predominantly sexual mode of transmission; Z12.4 Encounter for screening for malignant neoplasm of cervix
CPT/HCPCS: 99385

== ENCOUNTER 2023-05-30 10:54 | Outpatient (REF) | payer OTHER, SELFPAY ==
--- NOTE | ~2023-05-30 | US_ITS ---
EXAMINATION: US PELVIS CLINICAL INFORMATION: Menorrhagia and hirsutism. COMPARISON: None available. TECHNIQUE: Ultrasound of the pelvis is performed using both transabdominal and transvaginal transducers along with Doppler. Transvaginal imaging is performed due to inadequate visualization transabdominally. FINDINGS: Uterus: The uterus is anteverted and measures 8.4 x 4.4 x 6.0 cm. The double wall endometrial thickness is 6 mm. The uterus is smooth in contour and has normal myometrial echogenicity. No visible fibroid. Adnexa: Both ovaries are visualized. There is normal color flow to the adnexa. There is no ovarian torsion. There is trace pelvic ascites. Right ovary measures 3.0 x 2.0 x 1.6 cm for a volume of 5.0 mL. Left ovary measures 2.6 x 1.7 x 1.9 cm for a volume of 4.4 mL and appears normal. US/US pelvic and transvaginal IMPRESSION: Negative exam.
[2023-05-30 14:23] LABS: Free T4 (Free Thyroxine) 0.75 ng/dL (0.71-1.85); Syphilis Screen Nonreactive (Nonreactive); Thyroid Stimulating Hormone 0.85 uIU/mL (0.32-4.0)
[2023-05-31 05:41] LABS: HIV AB/AG Nonreactive (Nonreactive); HIV Num 1 0.05 S/CO (0.00-0.99); Hepatitis B Surface Antigen Negative (Negative); ~HepC Num1 0.06 S/CO (0.00-0.79); ~Hepatitis C Antibody Nonreactive (Nonreactive)
[2023-06-01 03:58] LABS: DHEA Sulfate 240 mcg/dL (19-237); Follicle Stimulating Hormone 8.8 mIU/mL; Lutenizing Hormone 4.9 mIU/mL
[2023-06-04 16:33] LABS: Testosterone, Free 3.4 pg/mL (0.1-6.4); Testosterone, Total 21 ng/dL (2-45)
[2023-06-08 23:33] LABS: Estradiol Free 1.11 pg/mL; Estradiol, Ultrasensitive 54 pg/mL
== END 2023-05-30 10:55 | disposition home or self-care (01) ==
LOC: HO.US 10:54
PROVIDERS: PCP Internal Medicine; Visit Provider Advanced Practice Midwife
DX: Z11.3 Encounter for screening for infections with a predominantly sexual mode of transmission (principal); Z11.4 Encounter for screening for human immunodeficiency virus [HIV]; L68.0 Hirsutism; Z87.42 Personal history of other diseases of the female genital tract
CPT/HCPCS: 36415; 76830; 76856; 82627; 82670; 82681; 83001; 83002; 84402; 84403; 84439; 84443; 86780; 86803; 87340; 87389

== ENCOUNTER 2023-06-04 10:41 | Outpatient (AMB) | payer OTHER, SELFPAY ==
--- NOTE | 2023-06-04 10:42 | A.OFFVIS_ITS ---
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 Medication List - Last Reconciled 06/04/23 by Keke Mcgowan CNM buspirone 10 mg PO TID 30 days escitalopram oxalate 10 mg PO DAILY 30 days fexofenadine (Shea Allergy) 60 mg PO BID fluticasone propion-salmeterol 115-21 mcg/actuation (Advair HFA) 2 puffs inhalation BID inhalational spacing device (OptiChamber Pooja VHC spacer) As directed prazosin 2 mg PO BEDTIME Ventolin HFA 90 mcg/actuation (albuterol sulfate) 2 puffs inhalation Q6H PRN 30 days NS Is last menstrual period known: Yes Last menstrual period: 05/25/23 Post menopausal: No HPI TV Follow up US/ ok per Keke HPI Details This is a tele visit to discuss patient's lab results and ultrasound results patient was seen for a visit last month and she was citing issues of having periods every 3 weeks but they are so light that she barely needs to use a pad or tampon or anything. Her last period that she calls a period was the same on May 25 and it was a week-long but practically nothing. Her other complaint is constant pressure in her head that can be so bad that she feels weak in her legs. She is getting allergy shots and is about to advance to the next level of an allergy shots she says it is helping with allergies but she does not believe that she has sinus congestion. She has an appointment next month with a neurologist today to be ill with her symptoms of the pressure in her head they have not been fully diagnosed at to this point. I did inquire what tests she has done and she has had scans. Reviewed all of these issues in context with her irregular infrequent light menses. She says that the last menses that she really had was a about a year ago. She is not sexually active with men so does not need to worry about control. Previous discussion about PCOS took place at the visit as well she is slightly above ideal weight but not very. We reviewed her ultrasound which was completely within normal limits. Her testosterone levels are still pending. The DHEA was the only level so far back that was slightly elevated at 240 with the cutoff being 237. Thyroid level was within normal limits and CBC was also normal. The patient inquired as to whether not the Gardnerella what it was positive could have anything to do with this and I shared that it does not. She says that sometimes she does have an odor down there when she works out. She says that when she is hot it is the 1st part of her body to get hot I observed during this tele visit she was wearing tight jeans but she says that literally that is the 1st day she has worn jeans all summer . At her request I am sending a prescription for gel. (since she is not very clear of her symptoms I recommend the gel versus p.o. Flagyl). I also recommend that she consider taking a course of Provera to bring on a withdrawal bleed and discussed that it will probably be heavy. And she should planet for what works out good for her life. In terms of long-term treatment of her irregular not normal menstrual cycle it really should be decided what the issue is cerebrally 1st. I discussed that sometimes there can be tumors of the pituitary gland that can have some impairment back done her menstrual cycle as well and I decided also to add a prolactin level to her labs. She says she will get this done soon she is continuing with her allergy shots and is going to discuss all of this with her neurological evaluation. We will have a tele visit afterwards to discuss results of the outstanding prolactin and testosterone levels and follow on from there I did discuss that figuring out what is going on neurologically and whether not there is anything that would impact on this and her treatment is important to consider 1st before considering something like control pills. [facility] Medical History Right hand pain Left hand pain Physical exam Seizure-like activity Insomnia due to other mental disorder EMELY (generalized anxiety disorder) Mild major depression, single episode Abdominal pain Overweight (BMI 25.0-29.9) Hypovitaminosis D Surgical History History of carpal tunnel surgery Family History Father No problems noted. Mother No problems noted. Family/Other Medical history unknown Substance use disorder Family/Other Mental health disorder Social History Housing: Apartment Alcohol intake: current Alcohol intake frequency: holidays/special occasions only Patient Tobacco Use Status: Never used Tobacco e-Cigarette/Vaping Use: Never Used Second Hand Smoke Exposure: Yes service: No Current occupational status: unemployed Cognitive needs: No Hearing needs: No Vision needs: No Female Reproductive History Menstrual Age of Menarche: 9 Date of last menstrual period: 05/25/23 control method: none Total pregnancies: 0 Results Reviewed Results Reviewed: RUN: 06/04/23 1047 PAGE 1 [facility] [address] [place] [phone] Print Journalist: Roel Brennan M.D. Specimen Inquiry Name: Mirlande Marr Age/Sex: 33/F : 1990 Unit#: [id number] Attend Dr: Keke Mcgowan CNM Re05/30/23 Status: DEP REF Location: [facility] Disch: SPEC : [id number] SKYLER: 05/30/23 STATUS: RES REQ : [id number] RECD: 05/30/[address] [facility] [address]: Keke Mcgowan CNM COMP: - ENTERED: 05/30/23-[address]: Malika Sifuentes MD ORDERED: FSH, LH, DHEAS, Testost Fr & T, Estrad Tot + Fr Test Result Flag Reference Site FSH 8.8 mIU/mL QUM Reference Range Follicular Phase 2.5-10.2 Mid-cycle Peak 3.1-17.7 Luteal Phase 1.5- 9.1 Postmenopausal 23.0-116.3 THIS TEST WAS PERFORMED AT: [facility], [address] [place] [phone] PEGGY HEWITT MD LH 4.9 mIU/mL QUM Reference Range Follicular Phase 1.9-12.5 Mid-Cycle Peak 8.7-76.3 Luteal Phase 0.5-16.9 Postmenopausal 10.0-54.7 THIS TEST WAS PERFORMED AT: [facility], [address] [place] [phone] PEGGY HEWITT MD DHEA-Sulfate 240 H 19-237 mcg/dL QUM THIS TEST WAS PERFORMED AT: [facility], [address] [place] [phone] PEGGY HEWITT MD Testost, Tot PENDING Testost, Free PENDING Estradiol Free PENDING Estradiol PENDING [place] [id number] Report Signed Patient: Ariana Marr#: [id number]: 1990Acct:[id number]/Sex: 33 / FADM Date: 05/30/23Loc: [facility] Dr: Keke Mcgowan CNM Ordering Physician: Keke Mcgowan CNM Date of Service: 05/30/23 Procedure(s): US pelvic and transvaginal Accession Number(s): [id number] cc: Keke Mcgowan CNM; Malika Sifuentes MD~ EXAMINATION: US PELVIS CLINICAL INFORMATION: Menorrhagia and hirsutism. COMPARISON: None available. TECHNIQUE: Ultrasound of the pelvis is performed using both transabdominal and transvaginal transducers along with Doppler. Transvaginal imaging is performed due to inadequate visualization transabdominally. FINDINGS: Uterus: The uterus is anteverted and measures 8.4 x 4.4 x 6.0 cm. The double wall endometrial thickness is 6 mm. The uterus is smooth in contour and has normal myometrial echogenicity. No visible fibroid. Adnexa: Both ovaries are visualized. There is normal color flow to the adnexa. There is no ovarian torsion. There is trace pelvic ascites. Right ovary measures 3.0 x 2.0 x 1.6 cm for a volume of 5.0 mL. Left ovary measures 2.6 x 1.7 x 1.9 cm for a volume of 4.4 mL and appears normal. US/US pelvic and transvaginal IMPRESSION: Negative exam. Dictated By:Fercho Morales MDSigned By:<Electronically signed by Fercho Morales MD in OV>05/31/23 1528 DD/ 1148TD/TT: Chute Greaser: PATRICIA RUN: 06/04/23 1102 PAGE 1 [facility] [address] [place] [phone] Print Journalist: Roel Brennan M.D. Specimen Inquiry Name: Mirlande Marr Age/Sex: 33/F : 1990 Unit#: [id number] Attend Dr: Keke Mcgowan CNM Re05/11/23 Status: DEP REF Location: [facility] Disch: SPEC : [id number] SKYLER: 05/11/23 STATUS: COMP REQ : [id number] RECD: 05/11/[address] [facility] [address]: Keke Mcgowan COMP: 05/13/231 ENTERED: 05/11/[address] [facility] [address]: Malika Sifuentes MD ORDERED: BV Panel Test Result Flag Reference Site Trichomonas DNA Negative Negative Gardnerella DNA Positive A Negative Jossy DNA Negative Negative END OF REPORT Assessment & Plan Assessment & Plan (1) History of irregular menstrual bleeding: Comment: Suspicious for PCOS Code(s): Z87.42 - Personal history of other diseases of the female genital tract (2) Hirsutism: Code(s): L68.0 - Hirsutism (3) Pressure in head: Code(s): R51.9 - Headache, unspecified (4) Oligomenorrhea: Comment: Extremely light periods every 3 weeks for about the last year 2022. Code(s): N91.5 - Oligomenorrhea, unspecified Plan This is a tele visit to discuss patient's lab results and ultrasound results patient was seen for a visit last month and she was citing issues of having periods every 3 weeks but they are so light that she barely needs to use a pad or tampon or anything. Her last period that she calls a period was the same on May 25 and it was a week-long but practically nothing. Her other complaint is constant pressure in her head that can be so bad that she feels weak in her legs. She is getting allergy shots and is about to advance to the next level of an allergy shots she says it is helping with allergies but she does not believe that she has sinus congestion. She has an appointment next month with a neurologist today to be ill with her symptoms of the pressure in her head they have not been fully diagnosed at to this point. I did inquire what tests she has done and she has had scans. Reviewed all of these issues in context with her irregular infrequent light menses. She says that the last menses that she really had was a about a year ago. She is not sexually active with men so does not need to worry about control. Previous discussion about PCOS took place at the visit as well she is slightly above ideal weight but not very. We reviewed her ultrasound which was completely within normal limits. Her testosterone levels are still pending. The DHEA was the only level so far back that was slightly elevated at 240 with the cutoff being 237. Thyroid level was within normal limits and CBC was also normal. The patient inquired as to whether not the Gardnerella what it was positive could have anything to do with this and I shared that it does not. She says that sometimes she does have an odor down there when she works out. She says th at when she is hot it is the 1st part of her body to get hot I observed during this tele visit she was wearing tight jeans but she says that literally that is the 1st day she has worn jeans all summer . At her request I am sending a prescription for gel. (since she is not very clear of her symptoms I recommend the gel versus p.o. Flagyl). I also recommend that she consider taking a course of Provera to bring on a withdrawal bleed and discussed that it will probably be heavy. And she should planet for what works out good for her life. In terms of long-term treatment of her irregular not normal menstrual cycle it really should be decided what the issue is cerebrally 1st. I discussed that sometimes there can be tumors of the pituitary gland that can have some impairment back done her menstrual cycle as well and I decided also to add a prolactin level to her labs. She says she will get this done soon she is continuing with her allergy shots and is going to discuss all of this with her neurological evaluation. We will have a tele visit afterwards to discuss results of the outstanding prolactin and testosterone levels and follow on from there I did discuss that figuring out what is going on neurologically and whether not there is anything that would impact on this and her treatment is important to consider 1st before considering something like control pills. Orders: Orders Prolactin Today L68.0 - Hirsutism, N91.5 - Oligomenorrhea, unspecified, R51.9 - Headache, unspecified, Z87.42 - Personal history of other diseases of the female genital tract Medications: New metronidazole 0.75%(37.5mg/5gram) 1 appful vaginal BID 5 days 70 grams 1RF medroxyprogesterone (Provera) 10 mg PO DAILY 10 tabs 0RF Telehealth Telehealth Location of provider rendering services: practice address Location of patient: other Patient Identification confirmed using: Name, : Yes Telehealth method: video Patient verbally consented to treatment: Yes Patient verbally consented to billing insurance company: Yes Patient informed of any privacy concerns related to visit: Yes Coding Level of Care Code Tele Est Pt Level 3 (16556) Diagnoses History of irregular menstrual bleeding Z87.42 Hirsutism L68.0 Pressure in head R51.9 Oligomenorrhea N91.5 Comment 3cr/22video discussion/5 charting=30
== END 2023-06-04 13:29 | disposition home or self-care (01) ==
LOC: HO.HWS 10:41
PROVIDERS: PCP Internal Medicine; Visit Provider Advanced Practice Midwife
DX: Z87.42 Personal history of other diseases of the female genital tract (principal); L68.0 Hirsutism; R51.9 Headache, unspecified; N91.5 Oligomenorrhea, unspecified
CPT/HCPCS: 99213

== ENCOUNTER → 2023-06-04 10:41 | Outpatient (BNVA) | payer OTHER, SELFPAY | PROVIDERS: PCP Internal Medicine; Visit Provider Advanced Practice Midwife ==

== ENCOUNTER 2023-06-07 11:02 | Outpatient (REF) | payer OTHER, SELFPAY ==
[2023-06-09 03:19] LABS: Prolactin 8.3 ng/mL
== END 2023-06-07 11:03 | disposition home or self-care (01) ==
LOC: HO.LAB 11:02
PROVIDERS: PCP Internal Medicine; Visit Provider Advanced Practice Midwife
DX: L68.0 Hirsutism (principal); R51.9 Headache, unspecified; N91.5 Oligomenorrhea, unspecified; Z87.42 Personal history of other diseases of the female genital tract
CPT/HCPCS: 36415; 84146

== ENCOUNTER 2023-06-11 09:25 | Outpatient (AMB) | payer OTHER, SELFPAY ==
--- NOTE | 2023-06-11 09:33 | A.OFFVIS_ITS ---
Intake Intake Visit Reasons: 10w/US Intake Note: Patient presents today for a follow-up on: US completed on 04/17/2023 Meds- Prazosin Allergies to Antibiotic- No Known Allergies Blood Thinner- None Allergies pine nut Allergy (Mild, Verified 06/11/23 09:57) Rash Seasonal Allergies Allergy (Mild, Verified 06/11/23 09:57) Runny Nose face paint Allergy (Intermediate, Uncoded 06/11/23 09:57) face breaks out epsom salt Adverse Reaction (Severe, Uncoded 06/11/23 09:57) nimbness from head to toe. HPI HPI Comments History of Present Illness Details Mirlande is a 33-year-old female who presents today to the office for a follow-up. 06/11/2023? She is followed today for renal US results She was last seen by me on 04/05/2023 as a new patient for ?? calculus of the kidney. Ultrasound of her kidneys and bladder was ordered.? I reviewed the retroperitoneum US results from 04/17/2023 revealed no calculi or focal parenchymal lesions. No hydronephrosis. She mentions having irregular menstrual cycles. Patient reports that she gets abdominal pain intermittently. Patient does have follow up with her LIFE SCIENCE TECHNICIAN who prescribed her Provera 10 mg daily. 06/11/2023: Evaluation today-UA?Leukocyt es: 3 +; blood: negative. Review of charts: Last visit: 04/05/2023-- The patient has a history of generalized anxiety disorder. She states that she has had intermittent abdominal pain. She had a recent hip x-ray and was told she had a kidney stone. I reviewed the hip x-ray dated 02/01/23. I reviewed the films and there is a calcification that may be in the area of left renal fossa.? I discussed with her about the further evaluation with renal ultrasound. The patient states that she voids every few hours during the day. She denies prior antibiotic treatment for UTI. She states that she has been having irregular menstrual cycles and has an appointment with her LIFE SCIENCE TECHNICIAN in April. Evaluation today-- UA -- no sign of infection. 06/11/2023: Plan: Follow up prn. [facility] Medical History Right hand pain Left hand pain Physical exam Seizure-like activity Insomnia due to other mental disorder EMELY (generalized anxiety disorder) Mild major depression, single episode Abdominal pain Overweight (BMI 25.0-29.9) Hypovitaminosis D Surgical History History of carpal tunnel surgery Family History Father No problems noted. Mother No problems noted. Family/Other Medical history unknown Substance use disorder Family/Other Mental health disorder Social History Housing: Apartment Alcohol intake: current Alcohol intake frequency: holidays/special occasions only Patient Tobacco Use Status: Never used Tobacco e-Cigarette/Vaping Use: Never Used Second Hand Smoke Exposure: Yes service: No Current occupational status: unemployed Cognitive needs: No Hearing needs: No Vision needs: No Female Reproductive History Menstrual Age of Menarche: 9 Review of Systems Const All systems reviewed & are unremarkable except as noted in HPI and below Reports no additional complaints Eyes Reports no additional complaints ENT Reports no additional complaints Card Denies dyspnea Resp Denies cough and Denies dyspnea GI Reports no additional complaints Reports no additional complaints Musc Reports no additional complaints Skin/Breast Denies rash and Denies unusual bruising Neuro Reports no additional complaints Psych Reports no additional complaints Endo Reports no additional complaints Salazar/Lymph Reports no additional complaints Aller/Immun Reports no additional complaints Results AMB Urinalysis, Automated UA Leukoctes 500 Rudi/uL Last Edit by ZULEIKA Kumari on 06/11/23 09:57 UA Nitrite Negative Last Edit by ZULEIKA Kumari on 06/11/23 09:57 UA Urobilinogen 0.2 mg/dL Last Edit by ZULEIKA Kumari on 06/11/23 09:5 7 UA Protein 0 mg/dL Last Edit by ZULEIKA Kumari on 06/11/23 09:57 UA pH 7.0 Last Edit by ZULEIKA Kumari on 06/11/23 09:57 UA Blood 0 Rat/uL Last Edit by ZULEIKA Kumari on 06/11/23 09:57 UA Specific [place] 1.010 Last Edit by ZULEIKA Kumari on 06/11/23 09: 57 UA Ketone Negative Last Edit by ZULEIKA Kumari on 06/11/23 09:57 UA Bilirubin 0 mg/dL Last Edit by ZULEIKA Kumari on 06/11/23 09:57 UA Glucose 0 mg/dL Last Edit by ZULEIKA Kumari on 06/11/23 09:57 Results Reviewed Results Reviewed: Laboratory Last Values Urine pH (Auto) 7.0 06/11/23 09:55 Specific [place] (Auto) 1.010 06/11/23 09:55 Urine Protein (Auto) 0 mg/dL 06/11/23 09:55 Glucose (UA)(Auto) 0 mg/dL 06/11/23 09:55 Urine Ketones (Auto) Negative 06/11/23 09:55 Urine Blood (Auto) 0 Art/uL 06/11/23 09:55 Urine Nitrite (Auto) Negative 06/11/23 09:55 Urine Bilirubin (Auto) 0 mg/dL 06/11/23 09:55 Urine Urobilinogen (Auto) 0.2 mg/dL 06/11/23 09:55 Leukocyte Esterase (Auto) 500 Rudi/uL 06/11/23 09:55 Date of Service: 04/17/23 EXAMINATION:? US RETROPERITONEAL COMPLETE (RENAL) CLINICAL INFORMATION: Unspecified abdominal pain. Possible left kidney stone, calcification noted on recent hip x-ray in area of left renal fossa. COMPARISON:? Right hip x-ray 02/01/2023. FINDINGS: RIGHT KIDNEY: 11.5 x 4.3 x 6.1 cm (SAG x AP x TRV). The kidney is normal in size, contour, and echogenicity. Renal cortical thickness is normal. No calculi or focal parenchymal lesions. No hydronephrosis. LEFT KIDNEY: 12.3 x 5.0 x 4.9 cm (SAG x AP x TRV). The kidney is normal in size, contour, and echogenicity. Renal cortical thickness is normal. No calculi or focal parenchymal lesions. No hydronephrosis. BLADDER: Well distended and normal. Bilateral ureteral jets are demonstrated. Prevoid bladder volume is 253 mL. Postvoid bladder volume is 14 mL. IMPRESSION:? Unremarkable examination Assessment & Plan Assessment & Plan (1) Abdominal pain: Code(s): R10.9 - Unspecified abdominal pain Qualifiers: Abdominal location: generalized Qualified Code(s): R10.84 - Generalized abdominal pain Plan Follow up prn. Orders: Orders AMB Urinalysis Automated Today Z13.9 - Encounter for screening, unspecified Patient Instructions: The patient had an opportunity to ask questions regarding treatment plan. All questions were answered. Imaging, Laboratory studies and physical exam results were discussed and reviewed in detail. No major barriers to understanding were identified. The patient expressed understanding and agreement with the above treatment plan.? ? ? The patient is aware they should contact our office by phone for worsening of their current condition or the appearance of new symptoms. Compliance is encouraged with any medications and followup testing that is ordered.? ? ? It is a privilege to be allowed the opportunity to participate in the urologic care of your patient. If you have any questions or concerns regarding treatment for the above conditions please do not hesitate to contact me. The office telephone contact is [phone].? ? ? This note is constructed in part using voice recognition software. While every effort has been made to ensure accuracy saw setter errors may have been i ncluded.? ? ? Yours sincerely,? ? ? Drew Sorenson MD? Coding Level of Care Code Est Pt Level 3 (94739) Diagnoses Generalized abdominal pain R10.84 Abdominal location: generalized
== END 2023-06-11 10:08 | disposition home or self-care (01) ==
PROVIDERS: PCP Internal Medicine; Visit Provider Urology
DX: R10.84 Generalized abdominal pain (principal); Z13.9 Encounter for screening, unspecified
CPT/HCPCS: 99213

== ENCOUNTER → 2023-06-11 09:25 | Outpatient (BNVA) | payer OTHER, SELFPAY | PROVIDERS: PCP Internal Medicine; Visit Provider Urology | DX: R10.84 Generalized abdominal pain (principal) | CPT/HCPCS: 81003; 99212 ==

== ENCOUNTER 2023-07-04 09:44 | Outpatient (AMB) | payer OTHER, SELFPAY ==
--- NOTE | 2023-07-04 09:53 | MHC.OFFVIS ---
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 More short term than mcc, close to 2 years. She also c/o built up pressure in my head that throws off my equilibrium . She gets headaches often. She becomes sensitive to light. She reports her headaches cover her entire head. she becomes nauseous, but does not vomit. This has been happening for the past year, they have become worse. She is uncertain what triggers them as they are sporadic. Allergies pine nut Allergy (Mild, Verified 07/04/23 10:06) Rash Seasonal Allergies Allergy (Mild, Verified 07/04/23 10:06) Runny Nose face paint Allergy (Intermediate, Uncoded 07/04/23 10:06) face breaks out epsom salt Adverse Reaction (Severe, Uncoded 07/04/23 10:06) nimbness from head to toe. Medication List - Last Reconciled 07/04/23 by Elvia Esquivel MD buspirone 10 mg PO TID 30 days escitalopram oxalate 10 mg PO DAILY 30 days fexofenadine (Shea Allergy) 60 mg PO BID fluticasone propion-salmeterol 115-21 mcg/actuation (Advair HFA) 2 puffs inhalation BID inhalational spacing device ([facility]) As directed medroxyprogesterone (Provera) 10 mg PO DAILY metronidazole 0.75%(37.5mg/5gram) 1 appful vaginal BID 5 days Ventolin HFA 90 mcg/actuation (albuterol sulfate) 2 puffs inhalation Q6H PRN 30 days NS HPI HPI Comments History of Present Illness Details 33y/o right handed female comes for evaluation of cognitive issues and head pressure. she has h/o significant psychiatric and medical issues ( depression , non epileptic seizures, fibromyalgia etc). she was seen by [facility] in 2021 and had neuropsyhc eval which was inconclusive as her cognitive symptoms were life long and she was unable to recall her developmental history. Her intellectual functioning was low to average . Normal scores on visuospatial construction, nonverbal abstraction, General knowledge , visual story memory set shifting. Variable performances on concentration, working memory and executive function. Her main concerns today are the persistent head pain or pressure.It started about 1 year ago she says the whole had fills with pressure, legs give out and affects her equilibrium. she says this is different form headaches - it is as if her head is like a balloon filled with air.she has 1-3 times a day and lasts few minutes. she also has migraines for many years now. It can be frontal, occipital , whole head . It is pounding throbbing pain with light and noise sensitivty, nausea. she uses excedrin migraine 2 tabs to help.she has 2-3 times a week.she may have visual aura she also describes a daily general headaches which are frontal . No noise or light sensitvity.she takes excedrin she takes 4-6 excedrin migraines per day for 3 years now. she has h/o psyhcogenic seizures. Her last episode was 1 year ago and was admitted at [facility] .She has numbness, palpitations, cannot move and unresponsive. she says she can hear people but cannot respond and some involuntary movements. she has therapist and med doctor for her mood. she has chronic sleep issues.she has trouble falling asleep , staying asleep and has night terrors, sleep paralysis. she denies any urinary issues. [facility] Medical History (Updated 07/04/23 @ 10:55 by Elvia Esquivel MD) Back pain Cervical spondylosis Neck pain Psychogenic nonepileptic seizure Chronic daily headache Chronic migraine with aura Right hand pain Left hand pain Physical exam Seizure-like activity Insomnia due to other mental disorder EMELY (generalized anxiety disorder) Mild major depression, single episode Abdominal pain Overweight (BMI 25.0-29.9) Hypovitaminosis D Surgical History History of carpal tunnel surgery Family History Father No problems noted. Mother HTN (hypertension) Diabetes Family/Other Medical history unknown Substance use disorder Family/Other Mental health disorder Social History Housing: Apartment Alcohol intake: current Alcohol intake frequency: holidays/special occasions only Patient Tobacco Use Status: Never used Tobacco e-Cigarette/Vaping Use: Never Used Second Hand Smoke Exposure: Yes service: No Current occupational status: unemployed Cognitive needs: No Hearing needs: No Vision needs: No Female Reproductive History Menstrual Age of Menarche: 9 Review of Systems Const Reports daytime sleepiness, Reports difficulty sleeping and Reports headache(s) Eyes Reports blurry vision ENT Reports headache(s) and Reports neck pain Musc Reports back pain and Reports neck pain Neuro Reports headache(s) and Reports seizure-like activity Psych Reports anxiety and Reports depression Physical Exam Vital Signs: Last Vital Signs Pulse 81 07/04/23 09:55 Resp 16 07/04/23 09:55 BP 122/70 07/04/23 09:55 Pulse Ox 98 07/04/23 09:55 Oxygen Delivery Method Room Air 07/04/23 09:55 BMI result Body Mass Index 28.5 Const General: cooperative, healthy appearing and comfortable Nutritional Appearance: average body habitus Orientation/consciousness: patient oriented x3 Eyes Pupils: Equal, round and reactive pupils present Neuro General: patient oriented x3, tone normal, moves all extremities and no focal motor deficits Cranial nerves: Yes Facial sensation intact/muscles of mastication intact, Yes Equal, round and reactive pupils present, Yes Bilaterally intact EOM present, Yes Nystagmus not present, Yes Normal facial strength present, Yes Midline tongue present, Yes Symmetric palate elevation present and Yes Ability to bilaterally elevate shoulders present Cognition (Neuro): normal cognition Gait exam (Neuro): Normal gait present Motor exam (neuro): 5/5 motor strength present throughout and Normal motor muscle tone present throughout Deep tendon reflexes (DTR's): Right triceps reflex intensity grade: 3+, Left triceps reflex intensity grade: 3+, Rt Biceps (C5, C6): 3+, Left biceps reflex intensity grade: 3+, Right brachioradialis reflex intensity grade: 3+, Left brachioradialis reflex intensity grade: 3+, Right patellar reflex intensity grade: 3+ and Left patellar reflex intensity grade: 3+ Coordination: [id number] test normal Psych Affect: Animated affect present Orientation What is the (year) (season) (date) (day) (month)?: year, season, date, day and month Where are we (state) (county) (town or city) (hospital) (floor)?: state, county, town or city, hospital/clinic and floor Registration Name of 3 unrelated objects clearly and slowly, then ask patient to repeat all 3 of them. (1st repeat determines score. Make sure they can repeat all three): object 1, object 2 and object 3 Attention & Calculation (CHOOSE ONE) Spell WORLD backwards (DLROW): 5 letters Recall Ask patient to repeat the 3 items from question #3.: object 1, object 2 and object 3 Language Show patient a wristwatch & ask what it is. Repeat for pencil.: watch and pencil Ask the patient to repeat the phrase 'No ifs, ands, or buts' after you.: correct Ask the patient to 'take a piece of paper with their right hand' 'fold paper in half' 'place paper on floor': take paper in right hand, fold paper in half and place paper on floor Print the sentence 'CLOSE YOUR EYES' on a piece. If patient actually closes eyes then score.: followed written direction Give patient a blank piece of paper & ask to write a sentence. Score if it contains a noun & verb.: sentence contains subject and verb Score Score: 29 Assessment & Plan Assessment & Plan (1) Chronic migraine with aura: Code(s): G43.E09 - Chronic migraine with aura, not intractable, without status migrainosus (2) Chronic daily headache: Code(s): R51.9 - Headache, unspecified (3) Memory loss: Code(s): R41.3 - Other amnesia (4) Psychogenic nonepileptic seizure: Code(s): F44.5 - Conversion disorder with seizures or convulsions Plan: stable now. Plan I will trial her on magnesium 400mg qhs Riboflavin 400mg qam imitrex 50 mg as needed for migraine Her chronic headaches are likely cervicogenic and rebound headache - i will evaluate her with MRI C spine, asked her to stop excedrin and refer her to PT> X ray LS spine Her MMSE was normal today - her cognition is closely related to her mood - f/u psychologist I will trial her on baclofen 10 mg qhs Orders: Orders XR lumbar spine 4V min Today M54.9 - Dorsalgia, unspecified MR cervical spine wo con Today M47.812 - Spondylosis without myelopathy or radiculopathy, cervical region, M54.2 - Cervicalgia PT Evaluation and Treatment Today M54.2 - Cervicalgia Medications: New magnesium oxide 400 mg PO .qhs 90 tabs 6RF sumatriptan succinate (Imitrex) take 1 tab at onset of headache; if no relief may repeat 1 tab after at least 2 hrs; max = 4 tabs/24 hr PO 14 tabs 6RF riboflavin (vitamin B2) 400 mg PO QAM 90 tabs 6RF baclofen 10 mg PO BEDTIME 30 tabs 3RF Coding Level of Care Code New Pt Level 5 (24306) Diagnoses Chronic migraine with aura G43.E09 Chronic daily headache R51.9 Memory loss R41.3 Psychogenic nonepileptic seizure F44.5 Time Spent (min) 65 Comment 40 minutes with patient 25 minutes reviewing notes from [facility]
[2023-07-04 09:55] VITALS: BP 122/70; PULSE 81; RESP 16; O2SAT 98; BMI 28.5
== END 2023-07-04 11:00 | disposition home or self-care (01) ==
PROVIDERS: Visit Provider Psychiatry & Neurology Neurology
DX: G43.E09 Chronic migraine with aura, not intractable, without status migrainosus (principal); F44.5 Conversion disorder with seizures or convulsions
CPT/HCPCS: 99205

== ENCOUNTER → 2023-07-04 09:44 | Outpatient (BNVA) | payer OTHER, SELFPAY | PROVIDERS: Visit Provider Psychiatry & Neurology Neurology | DX: G43.E09 Chronic migraine with aura, not intractable, without status migrainosus (principal); R51.9 Headache, unspecified; R41.3 Other amnesia; F44.5 Conversion disorder with seizures or convulsions | CPT/HCPCS: 99202 ==

== ENCOUNTER 2023-08-15 07:17 | Outpatient (REF) | payer OTHER, SELFPAY ==
--- NOTE | ~2023-08-15 | MR_ITS ---
EXAMINATION: MR CERVICAL SPINE WITHOUT CONTRAST CLINICAL INFORMATION: Cervicalgia COMPARISON: None TECHNIQUE: MRI of the cervical spine was obtained using routine sequences without contrast. FINDINGS: The craniocervical junction is intact. The cervical lordosis is preserved. There is no significant spondylolisthesis. Vertebral body heights are normal without acute compression fracture. No suspicious osseous lesion.. Apparent STIR hyperintensity within the upper to mid cervical articular pillars without correlate on T1 or T2-weighted series presumed to be artifactual in etiology, particularly in the absence of significant facet arthropathy. Disc desiccation and mild disc height loss at C5-C6 and C6-C7. Level by level detail as follows: C2-C3: Minor uncovertebral spurring without spinal canal or neural foraminal stenosis. C3-C4: No spinal canal or neural foraminal stenosis. C4-C5: Minor uncovertebral spurring. No spinal canal or neural foraminal stenosis. C5-C6: Small disc osteophyte complex with contiguous uncovertebral joint hypertrophy. No spinal canal stenosis. Minimal right greater than left neural foraminal encroachment. C6-C7: Small disc osteophyte complex with soft left posterolateral disc protrusion and associated annular fissure and bilateral uncovertebral joint hypertrophy. Mild left eccentric spinal canal stenosis with suggestion of slight flattening along the left ventral cord and moderate bilateral neural foraminal narrowing. C7-T1: No spinal canal or neural foraminal stenosis. The cervical spinal cord is normal in signal and morphology. No epidural fluid collection, mass, or hematoma. No significant abnormalities of the paraspinal musculature. The flow voids of the major cervical vessels are maintained. The visualized intracranial structures are normal. No demonstrated abnormalities in the visualized neck. MR/MR cervical spine wo con IMPRESSION: Minimal cervical spondylosis. At C6-C7 spondylosis including left posterolateral disc protrusion and associated annular fissure contributes to mild left eccentric spinal canal stenosis suggestion of left ventral cord flattening and moderate bilateral neural foraminal narrowing. No cord compression or cord signal abnormality.
--- NOTE | ~2023-08-15 | XR_ITS ---
EXAMINATION: XR LUMBOSACRAL SPINE WITH OBLIQUES CLINICAL INFORMATION: Dorsalgia. COMPARISON: None available. TECHNIQUE: AP, both oblique, and lateral views of the lumbar spine. Lateral view of the lumbosacral junction. FINDINGS: The vertebral bodies and posterior elements are normal. No spondylolysis defect is seen on the oblique views. The disc spaces are preserved and the vertebral alignment is normal. The paraspinal soft tissues are normal. XR/XR lumbar spine 4V min IMPRESSION: Unremarkable examination.
== END 2023-08-15 07:18 | disposition home or self-care (01) ==
LOC: HO.MRI 07:17
PROVIDERS: PCP Internal Medicine; Visit Provider Psychiatry & Neurology Neurology
DX: M54.2 Cervicalgia (principal); M47.812 Spondylosis without myelopathy or radiculopathy, cervical region; M54.9 Dorsalgia, unspecified
CPT/HCPCS: 72110; 72141

== ENCOUNTER 2023-10-01 08:00 | Outpatient (RCR) | payer OTHER, SELFPAY ==
--- NOTE | 2023-08-06 13:51 | MHC.PT.EP ---
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 Of note, she also reports long hx of EDOUARD that messes with my equilibrium especially when it 'feels like you are blowing a balloon into my head that will cause her to become numb and she will fall over. EDOUARD are throughout entire head and they are undergoing allergy tests and changing medications. Examination shows decreased cervical AROM, poor cervical strength, decreased scapular/shoulder strenght, and increased pain to light touch. Recommend PT 2x/week for 4 weeks to address impairments, implement HEP, and optimize functional mobility. POC to include cervical isometrics, cervical ROM, gentle MFR (if tolerated), scapular strengthening and breathing. Frequency and Duration: The patient will be seen 2x/week for 4 weeks Short Term Goals: 2 weeks COmpliant with HEP I with lumbar roll Education And Training Manager Goals: 4 week I with HEP and self management of sx Pt will report 50% decreased in cervical pain with field cane scaler helper Pt will be able to drive > 20 minutes with pain < 3/10 Treatment Plan: Modalities to reduce pain, spasms and effusion. Manual therapy to restore motion and function. Therapeutic exercise to improve strength and flexibility. Neuromuscular re-education for posture and balance. Therapeutic activities to return to functional activities of daily living. Electronically signed by: Kellee Castelan PT Please sign and return to therapist. Thank you for your referral.
--- NOTE | 2023-10-01 08:46 | MHC.PT.DC ---
[facility] [place] Office [place] Office [place] Office [address] Maryanne Guerrero [address] [phone] F: [phone] F: [phone] F: [phone] F: [phone] Physical Therapy Discharge Report Diagnosis: cervicalgia Date of Surgery: Date of Evaluation: 08/06/23 Date of Discharge: 10/01/23 Treatments to Date: 8 Cancellations to Date: 0 No Shows to Date: 0 Discharge Status: Independent with HEP Discharge Summary: Pt with improved cervical AROM and continues to move neck more freely throughout sessions since initial evaluation. Cervical extension is still limited and painful, otherwise motion has improved in all other planes. 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 REviewed modifications to decrease amount of cervical flexion with dish washing. Also reviewed flare-up plan. SPADI (IR ). At this time, pt will be d/c from PT to I HEP. Pt also has f/u with EMG in a few days and will f/u with MD. Electronically signed by: Kellee Castlean PT Please sign and return to therapist. Thank you for your referral.
== END 2023-10-01 08:47 | disposition home or self-care (01) ==
LOC: HO.PTCHIC 08:00
PROVIDERS: PCP Internal Medicine; Visit Provider Psychiatry & Neurology Neurology
DX: M54.2 Cervicalgia (principal)
CPT/HCPCS: 97110; 97140; 97162

== ENCOUNTER 2023-10-05 08:27 | Outpatient (REF) | payer OTHER, SELFPAY ==
--- NOTE | 2023-10-05 08:45 | EMG_ITS ---
Chief complaint: Neck pain, occasional hand numbness History of bilateral CTR 2021 Reason for referral: Evaluate for radiculopathy Referred by: Tanisha Piper NP Procedure done: Bilateral upper extremities NCS/EMG Precautions and/or limitations: None The limb temperature was monitored continuously and remained between 32-36 degrees C during the performance of the NCS. Nerve Conduction Studies Anti Sensory Summary Table ?Stim Site NR Onset (ms) Norm Onset (ms) Peak (ms) Norm Peak (ms) O-P Amp (?V) Norm O-P Amp Site1 Site2 Delta-0 (ms) Dist (cm) Rui (m/s) Norm Rui (m/s) Left Median Anti Sensory (2nd Digit) Wrist ? 2.5 3.3 <3.6 38.5 >10 Wrist 2nd Digit 2.5 14.0 56 Right Median Anti Sensory (2nd Digit) Wrist ? 2.4 2.9 <3.6 11.7 >10 Wrist 2nd Digit 2.4 14.0 58 Right Radial Anti Sensory (Thumb) Forearm ? 1.3 1.9 <3.1 13.9 Forearm Thumb 1.3 0.0 Left Ulnar Anti Sensory (5th Digit) Wrist ? 1.9 2.5 <3.7 46.7 >15.0 Wrist 5th Digit 1.9 14.0 74 Right Ulnar Anti Sensory (5th Digit) Wrist ? 2.2 2.8 <3.7 33.4 >15.0 Wrist 5th Digit 2.2 14.0 64 Motor Summary Table ?Stim Site NR Onset (ms) Norm Onset (ms) O-P Amp (mV) Norm O-P Amp iAmp (mV) Amp (1st) (%) Site1 Site2 Delta-0 (ms) Dist (cm) Rui (m/s) Norm Uri (m/s) Left Median Motor (Abd Poll Brev) Wrist ? 3.3 <3.9 7.7 >4.5 9.3 100.0 Elbow Wrist 3.3 18.5 56 >45 Elbow ? 6.6 6.1 7.5 79.2 Right Median Motor (Abd Poll Brev) Wrist ? 3.6 <3.9 7.9 >4.5 8.9 100.0 Elbow Wrist 3.3 18.0 55 >45 Elbow ? 6.9 6.9 7.7 87.3 Left Ulnar Motor (Abd Dig Minimi) Wrist ? 2.3 <3.0 8.9 >5 10.7 100.0 B Elbow Wrist 2.6 16.5 63 >45 B Elbow ? 4.9 8.9 10.8 100.0 A Elbow B Elbow 1.4 10.0 71 >45 A Elbow ? 6.3 8.7 10.5 97.8 Right Ulnar Motor (Abd Dig Minimi) Wrist ? 2.3 <3.0 8.5 >5 10.6 100.0 B Elbow Wrist 2.7 17.0 63 >45 B Elbow ? 5.0 9.1 11.2 107.1 A Elbow B Elbow 1.3 10.0 77 >45 A Elbow ? 6.3 9.1 11.2 107.1 EMG ?Side Muscle Nerve Root Ins Act Fibs Psw Amp Dur Poly Recrt Int Pat Comment Right 1stDorInt Ulnar C8-T1 Nml Nml Nml Nml Nml 0 Nml Complete Right FlexCarRad Median C6-7 Nml Nml Nml Nml Nml 0 Nml Complete Right Biceps Musculocut C5-6 Nml Nml Nml Nml Nml 0 Nml Complete Right Triceps Radial C6-7-8 Nml Nml Nml Nml Nml 0 Nml Complete Right Deltoid Axillary C5-6 Nml Nml Nml Nml Nml 0 Nml Complete Left 1stDorInt Ulnar C8-T1 Nml Nml Nml Nml Nml 0 Nml Complete Left FlexCarRad Median C6-7 Nml Nml Nml Nml Nml 0 Nml Complete Left Biceps Musculocut C5-6 Nml Nml Nml Nml Nml 0 Nml Complete Left Triceps Radial C6-7-8 Nml Nml Nml Nml Nml 0 Nml Complete Left Deltoid Axillary C5-6 Nml Nml Nml Nml Nml 0 Nml Complete FINDINGS: All motor and sensory nerves tested showed normal latencies, amplitudes and conduction velocities. Concentric needle EMG was performed in selected muscles of the bilateral upper extremities. Study did not reveal signs of electric abnormalities as shown in the table below. IMPRESSION: 1. This is a normal study. 2. There is no electrodiagnostic evidence for median neuropathy, ulnar neuropathy, brachial plexopathy, or cervical radiculopathy. Thank you for your kind referral. Yesica Child MD, [place]AL[place] Board Certified, [place] [employer] and Rehabilitation (ABPMR) Board Certified, [place] Board of Electrodiagnostic Medicine (ABEM) CODIN [id number] x 2 PANKAJ
== END 2023-10-05 08:28 | disposition home or self-care (01) ==
LOC: HO.NEURO 08:27
PROVIDERS: PCP Internal Medicine; Visit Provider Nurse Practitioner Family
DX: M47.812 Spondylosis without myelopathy or radiculopathy, cervical region (principal); R20.2 Paresthesia of skin; M79.601 Pain in right arm; M79.602 Pain in left arm
CPT/HCPCS: 95886; 95911

== ENCOUNTER → 2023-10-05 08:45 | Outpatient (BNV) | payer OTHER, SELFPAY | PROVIDERS: PCP Internal Medicine; Visit Provider Physical Medicine & Rehabilitation | DX: M79.641 Pain in right hand (principal); M79.642 Pain in left hand; R20.2 Paresthesia of skin; M54.2 Cervicalgia | CPT/HCPCS: 95886; 95911 ==

== ENCOUNTER 2023-10-18 13:37 | Outpatient (AMB) | payer OTHER, SELFPAY ==
[2023-10-18 13:38] VITALS: BP 112/80; BMI 28.6
--- NOTE | 2023-10-18 13:38 | MHC.PC.OV ---
Vital Signs 10/18/23 13:38 Height 5 ft 6 in Weight 177 lb BMI 28.6 BP 112/80 Blood Pressure Location Lt brachial Position Sitting Intake Visit Reasons: PE Intake Note: Patient here for a physical exam Attendance Officer Required: No Accompanied by: Self / Same As Patient Allergies pine nut Allergy (Mild, Verified 10/18/23 14:16) Rash Seasonal Allergies Allergy (Mild, Verified 10/18/23 14:16) Runny Nose face paint Allergy (Intermediate, Uncoded 10/18/23 14:16) face breaks out epsom salt Adverse Reaction (Severe, Uncoded 10/18/23 14:16) nimbness from head to toe. Medication List - Last Reconciled 10/18/23 by Malika Moore MD amitriptyline 10 mg PO BEDTIME 30 days baclofen 10 mg PO BEDTIME buspirone 10 mg PO TID 30 days escitalopram oxalate 10 mg PO DAILY 30 days fexofenadine (Shea Allergy) 60 mg PO BID fluticasone propion-salmeterol 115-21 mcg/actuation (Advair HFA) 2 puffs inhalation BID inhalational spacing device (OptiChamber Pooja C spacer) As directed magnesium oxide 400 mg PO .qhs medroxyprogesterone (Provera) 10 mg PO DAILY sumatriptan succinate (Imitrex) take 1 tab at onset of headache; if no relief may repeat 1 tab after at least 2 hrs; max = 4 tabs/24 hr PO Ventolin HFA 90 mcg/actuation (albuterol sulfate) 2 puffs inhalation Q6H PRN 30 days NS Tobacco use date assessed: 10/18/23 Dental Screening Dental Screen Date: 10/18/23 Did you have a dental visit in the last 12 months?: Yes Did you have a dental problem in the last 6 months where you did not have access to dental care?: No Was dental information given to patient?: Patient has dentist HPI HPI Comments History of Present Illness Details This is a 33-year-old female that comes for her physical exam. Last Pap smear was 2022. No chest pain or shortness of breath. Complains of memory loss, headaches and bilateral leg weakness follow by Neurology. Nerve conduction study, x-ray lumbar spine and MRI cervical spine were discussed. [facility] Medical History Back pain Cervical spondylosis Neck pain Psychogenic nonepileptic seizure Chronic daily headache Chronic migraine with aura Right hand pain Left hand pain Physical exam Seizure-like activity Insomnia due to other mental disorder EMELY (generalized anxiety disorder) Mild major depression, single episode Abdominal pain Overweight (BMI 25.0-29.9) Hypovitaminosis D Surgical History History of carpal tunnel surgery Family History Father No problems noted. Mother HTN (hypertension) Diabetes Family/Other Medical history unknown Substance use disorder Family/Other Mental health disorder Social History Housing: Apartment Alcohol intake: current Alcohol intake frequency: holidays/special occasions only Patient Tobacco Use Status: Never used Tobacco e-Cigarette/Vaping Use: Never Used Second Hand Smoke Exposure: Yes service: No Current occupational status: unemployed Cognitive needs: No Hearing needs: No Vision needs: No Female Reproductive History Menstrual Age of Menarche: 9 Questionnaire PHQ-9 Over the last 2 weeks, how often have you been bothered by any of the following problems? 1. Little interest or pleasure in doing things: not at all 2. Feeling down, depressed, or hopeless: not at all 3. Trouble falling or staying asleep, or sleeping too much: not at all 4. Feeling tired or having little energy: not at all 5. Poor appetite or overeating: not at all 6. Feeling bad about yourself - or that you are a failure or have let yourself or your family down: not at all 7. Trouble concentrating on things, such as reading the newspaper or watching television: not at all 8. Moving or speaking so slowly that other people could have noticed. Or the opposite - being so fidgety or restless that you have been moving around a lot more than usual: not at all 9. Thoughts that you would be better off or of hurting yourself in some way: not at all Total score: 0 Depression Screening Interpretation: Negative Depression Screening Done: Yes 69309 - PHQ-9 Billing: Yes Source: Developed by Drs. Larry Helms, Maria Luz Lawrence, Simon Mccann and colleagues, with an educational alisa from [employer]. Thrive Questionnaire Date Thrive assessed: 10/18/23 I am a: Patient What is your living situation today?: I have a steady place to live Within the past 12 months, did the food you bought not last and you didn't have the money to get more?: Never true Within the past 12 months, did you worry whether your food would run out before you got money to buy more?: Never true Do you have trouble paying for medicines?: No Do you have trouble getting transportation to medical appointments?: No Do you have trouble paying your heating and electricity bill?: No Do you have trouble taking care of your child, family member or friend?: No Do you have trouble with day-to-day activities such as bathing, preparing meals, shopping, managing finances, etc.?: No Are you currently unemployed and looking for a job?: No Are you interested in more education?: No Please select the resources that you would like help with: None Currently or been in a relationship where the following occur: no concerns reported THRIVE Score: 0 AUDIT C Alcohol Use Questionnaire (AUDIT-C) 1. How often do you have a drink containing alcohol?: Monthly or less 2. How many drinks containing alcohol do you have on a typical day when you are drinking?: 1 or 2 3. How often do you have six or more drinks on one occasion?: Never Total Score: 1 EMELY-7 AMB Questionnaire EMELY-7 Date EMELY - 7 assessed: 10/18/23 Feeling nervous, anxious, or on edge: 3 = Nearly every day Not being able to stop or control worryin = More than half the days Worrying too much about different things: 3 = Nearly every day Trouble relaxin = Nearly every day Being so restless that it is hard to sit still: 2 = More than half the days Becoming easily annoyed or irritable: 2 = More than half the days Feeling afraid as if something awful might happen: 0 = Not at all Total EMELY-7 score (0-4 normal; 5-9 mild; 10-14 moderate; 15-21 severe): 15 Source: Developed by Maria Luz Hauser Howard, Simon Mccann and colleagues, with an educational alisa from [employer]. EMELY-7 Assessment Billing EMELY-7 Assessment Tool: EMELY-7 Assessment 78191 Review of Systems Const All systems reviewed & are unremarkable except as noted in HPI and below Eyes Reports no additional complaints, Denies change in vision and Denies other visual disturbances Card Denies chest pain at rest, Denies chest pain with activity, Denies edema, Denies irregular heart rhythm, Denies claudication, Denies dyspnea, Denies dyspnea on exertion, Denies orthopnea, Denies paroxysmal nocturnal dyspnea and Denies slow heart rate Resp Denies cough, Denies dyspnea and Denies dyspnea on exertion GI Denies abdominal pain, Denies change in bowel habits, Denies excessive flatus, Denies nausea and Denies vomiting Denies urinary incontinence, Denies urinary hesitancy and Denies urinary urgency Musc Denies abnormal gait, Denies atrophy, Denies deformity and Denies limited range of motion Skin/Breast Denies bleeding lesions, Denies changing lesions and Denies rash Neuro Denies abnormal gait, Denies behavioral changes, Denies confusion and Denies lack of coordination Psych Denies behavioral changes and Denies confusion Physical exam (Primary Care) Vital Signs: Last Vital Signs BP 112/80 10/18/23 13:38 BMI result Body Mass Index 28.6 Tobacco/Smoking Status: Tobacco use Status Tobacco use date assessed 10/18/23 10/18/23 13:49 Patient Tobacco Use Status Never used Tobacco 10/18/23 13:38 e-Cigarette/Vaping Use Never Used 10/18/23 13:38 PHQ-9: PHQ-9 Score PHQ-9: Total score 0 10/18/23 14:24 Depression Screening Interpretation: Negative Thrive Assessment: Date of Thrive Assessment Date Thrive assessed 10/18/23 10/18/23 13:49 Currently or been in a relationship where the following occur: no concerns reported Const General: No confusion Orientation/consciousness: patient oriented x3 and No confusion HENMT Head: Yes normal to inspection, Yes normocephalic and Yes atraumatic Ears: external ears normal Eyes General: appearance normal, both eyes and all related structures Eyelids: Yes eyelids normal Conjunctivae: conjunctivae normal Neck Neck: Yes normal visual inspection and Yes supple Resp Effort & Inspection: normal respiratory effort Auscultation: clear to auscultation bilaterally Cardio Jugular venous distension: no JVD Rate: regular rate Rhythm: regular rhythm Heart sounds: S1 normal heart sound present and S2 normal heart sound present GI Inspection: Yes normal to inspection Palpation (GI): Soft to palpation and nontender Auscultation: normal bowel sounds Skin General skin exam: no rashes or lesions noted Neuro General: patient oriented x3, no focal motor deficits and No confusion Extrem General: Yes full ROM Psych Appearance: grossly normal Assessment and Plan Assessment & Plan (1) Physical exam: Code(s): Z00.00 - Encounter for general adult medical examination without abnormal findings Plan: Repeat in a year. Orders: Orders Vitamin D 25-OH Total Today E55.9 - Vitamin D deficiency, unspecified Lipid Panel Today Z00.00 - Encounter for general adult medical examination without abnormal findings Comprehensive [place]. Panel Fast Today Z00.00 - Encounter for general adult medical examination without abnormal findings Complete Blood Count Auto Diff Today R41.3 - Other amnesia Thyroid Stimulating Hormone Today R41.3 - Other amnesia Coding Level of Care Code Est Pt Prev Care 18-39y(14816) Diagnoses Physical exam Z00.00 Additional Codes EMELY-7 Assessment Billing - EMELY-7 Assessment Tool: EMELY-7 Assessment 92737 ([id number]) Time Spent (min) 33
== END 2023-10-18 15:20 | disposition home or self-care (01) ==
PROVIDERS: PCP Internal Medicine; Visit Provider Internal Medicine
DX: Z00.00 Encounter for general adult medical examination without abnormal findings (principal); E55.9 Vitamin D deficiency, unspecified
CPT/HCPCS: 99395

== ENCOUNTER 2023-10-19 07:48 | Outpatient (REF) | payer OTHER, SELFPAY ==
[2023-10-19 08:07] LABS: MANUAL DIFF FLAG NO
[2023-10-19 08:25] LABS: Basophils Percent Auto 0.6 % (0-2); Eosinophils Absolute Auto 0.1 X10*3/uL (0.0-0.4); Eosinophils Percent Auto 1.1 % (0-4); Hematocrit 37.6 % (37.0-47.0); Hemoglobin 12.8 g/dl (12.0-16.0); Imm Gran Abs Auto 0.11 X10*3/uL (0.00-0.03); Imm Gran Pct Auto 1.6 % (0.0-0.4); Lymphocytes Absolute Auto 2.2 X10*3/uL (1.2-4.9); Lymphocytes Percent Auto 31.2 % (20-40); Mean Corpuscular Hemoglobin 29.7 pg (27.0-33.0); Mean Corpuscular Volume 87.2 fL (80.0-98.0); Mean Platelet Volume 10.4 fL (9.4-12.3); Monocytes Absolute Auto 0.4 X10*3/uL (0.1-1.2); Monocytes Percent Auto 6.3 % (2-11); Neutrophils Absolute Auto 4.2 x10*3/uL (2.0-8.3); Neutrophils Percent Auto 59.2 % (45-73); Platelet Count 280 X10*3/uL (160-400); Red Blood Count 4.31 X10*6/uL (4.20-5.50); Red Cell Distribution Width 12.7 % (11.0-16.0)
[2023-10-19 09:04] LABS: Alanine Aminotransferase 12 U/L (0-31); Albumin Level 4.1 g/dL (3.5-5.0); Alkaline Phosphatase 74 U/L (39-117); Anion Gap 10 (12-20); Aspartate Amino Transferase 17 U/L (5-31); Bilirubin Total 0.3 mg/dL (0.0-1.0); Blood Urea Nitrogen 12 mg/dL (9-16); Calcium 8.6 mg/dL (8.4-10.2); Carbon Dioxide 24 mmol/L (22-29); Chloride 109 mmol/L (96-108); Cholesterol 172 mg/dL (<200); Estimated Glomerular Filt Rate > 60; Glucose Fasting 100 mg/dL (60-99); HDL Cholesterol 48 mg/dL (>40); LDL Cholesterol Calculated 113 mg/dL (<100); Sodium 139 mmol/L (135-145); Total Protein 7.1 g/dL (6.5-8.0); Triglycerides 56 mg/dL (<150)
[2023-10-19 09:21] LABS: Thyroid Stimulating Hormone 0.71 uIU/mL (0.32-4.0); Vitamin D 25-OH Total 18.9 ng/mL (>30)
== END 2023-10-19 07:49 | disposition home or self-care (01) ==
LOC: HO.LAB 07:48
PROVIDERS: PCP Internal Medicine; Visit Provider Internal Medicine
DX: Z00.00 Encounter for general adult medical examination without abnormal findings (principal); R41.3 Other amnesia; E55.9 Vitamin D deficiency, unspecified
CPT/HCPCS: 36415; 80053; 80061; 82306; 84443; 85025

== ENCOUNTER 2023-11-19 09:13 | Outpatient (AMB) | payer OTHER, SELFPAY ==
--- NOTE | 2023-11-19 09:18 | A.OFFVIS_ITS ---
Intake Vital Signs 11/19/23 09:21 Height 5 ft 6 in Weight 175 lb BMI 28.2 BP 108/70 Blood Pressure Location Rt brachial Position Sitting Respiration 17 Pulse 80 Pulse Source Pulse Oximeter Pulse Oximetry (%) 99 Oxygen Delivery Method Room Air Intake Visit Reasons: f/u appt for Amnesia-CONF Intake Note: Pt presents for a 4 month follow up for memory issues and chronic headaches. Small Kick Press Operator Required: No Allergies pine nut Allergy (Mild, Verified 11/19/23 09:21) Rash Seasonal Allergies Allergy (Mild, Verified 11/19/23 09:21) Runny Nose face paint Allergy (Intermediate, Uncoded 11/19/23 09:21) face breaks out epsom salt Adverse Reaction (Severe, Uncoded 11/19/23 09:21) nimbness from head to toe. HPI HPI Comments History of Present Illness Details 33y/o right handed female comes for f/u she is baclofen , magnesium . she is under a lot of stress and feels that is causing her tension headaches Her c spine MRI showed mild spondylolisthesis with mild canal stenosis. she did PT but made her neck worse. she sees a therapist who she talks 2 times a week . Previous history- she has h/o significant psychiatric and medical issues ( depression , non epileptic seizures, fibromyalgia etc). she was seen by [facility] in 2021 and had neuropsyhc eval which was inconclusive as her cognitive symptoms were life long and she was unable to recall her developmental history. Her intellectual functioning was low to average . Normal scores on visuospatial construction, nonverbal abstraction, General knowledge , visual story memory set shifting. Variable performances on concentration, working memory and executive function. Her main concerns today are the persistent head pain or pressure.It started about 1 year ago she says the whole had fills with pressure, legs give out and affects her equilibrium. she says this is different form headaches - it is as if her head is like a balloon filled with air.she has 1-3 times a day and lasts few minutes. she also has migraines for many years now. It can be frontal, occipital , whole head . It is pounding throbbing pain with light and noise sensitivty, nausea. she uses excedrin migraine 2 tabs to help.she has 2-3 times a week.she may have visual aura she also describes a daily general headaches which are frontal . No noise or light sensitvity.she takes excedrin she takes 4-6 excedrin migraines per day for 3 years now. she has h/o psyhcogenic seizures. Her last episode was 1 year ago and was admitted at [facility] .She has numbness, palpitations, cannot move and unresponsive. she says she can hear people but cannot respond and some involuntary movements. she has therapist and med doctor for her mood. she has chronic sleep issues.she has trouble falling asleep , staying asleep and has night terrors, sleep paralysis. she denies any urinary issues. [facility] Medical History Back pain Cervical spondylosis Neck pain Psychogenic nonepileptic seizure Chronic daily headache Chronic migraine with aura Right hand pain Left hand pain Physical exam Seizure-like activity Insomnia due to other mental disorder EMELY (generalized anxiety disorder) Mild major depression, single episode Abdominal pain Overweight (BMI 25.0-29.9) Hypovitaminosis D Surgical History History of carpal tunnel surgery Family History Father No problems noted. Mother HTN (hypertension) Diabetes Family/Other Medical history unknown Substance use disorder Family/Other Mental health disorder Social History Housing: Apartment Alcohol intake: current Alcohol intake frequency: holidays/special occasions o nly Patient Tobacco Use Status: Never used Tobacco e-Cigarette/Vaping Use: Never Used Second Hand Smoke Exposure: Yes service: No Current occupational status: unemployed Cognitive needs: No Hearing needs: No Vision needs: No Female Reproductive History Menstrual Age of Menarche: 9 Physical Exam Vital Signs: Last Vital Signs Pulse 80 11/19/23 09:21 Resp 17 11/19/23 09:21 BP 108/70 11/19/23 09:21 Pulse Ox 99 11/19/23 09:21 Oxygen Delivery Method Room Air 11/19/23 09:21 BMI result Body Mass Index 28.2 Const General: cooperative, healthy appearing and comfortable Nutritional Appearance: average body habitus Orientation/consciousness: patient oriented x3 Eyes Pupils: Equal, round and reactive pupils present Neuro General: patient oriented x3, tone normal, moves all extremities and no focal motor deficits Cranial nerves: Yes Facial sensation intact/muscles of mastication intact, Yes Equal, round and reactive pupils present, Yes Bilaterally intact EOM present, Yes Nystagmus not present, Yes Normal facial strength present, Yes Midline tongue present, Yes Symmetric palate elevation present and Yes Ability to bilaterally elevate shoulders present Cognition (Neuro): normal cognition Gait exam (Neuro): Normal gait present Motor exam (neuro): 5/5 motor strength present throughout and Normal motor muscle tone present throughout Deep tendon reflexes (DTR's): Right triceps reflex intensity grade: 3+, Left triceps reflex intensity grade: 3+, Rt Biceps (C5, C6): 3+, Left biceps reflex intensity grade: 3+, Right brachioradialis reflex intensity grade: 3+, Left brachioradialis reflex intensity grade: 3+, Right patellar reflex intensity grade: 3+ and Left patellar reflex intensity grade: 3+ Coordination: [id number] test normal Psych Affect: Animated affect present Assessment & Plan Assessment & Plan (1) Chronic migraine with aura: Code(s): G43.E09 - Chronic migraine with aura, not intractable, without status migrainosus (2) Chronic daily headache: Code(s): R51.9 - Headache, unspecified (3) Psychogenic nonepileptic seizure: Code(s): F44.5 - Conversion disorder with seizures or convulsions Plan: stable now. Plan magnesium 400mg qhs Riboflavin 400mg qam imitrex 50 mg as needed for migraine Her chronic headaches are likely cervicogenic. Her MMSE was normal today - her cognition is closely related to her mood - f/u psychologist baclofen 10 mg qhs suggested to take amitriptyline 10mg qhs - she has been taking it intermittently Neck exercises Coding Level of Care Code Est Pt Level 4 (73078) Diagnoses Chronic migraine with aura G43.E09 Chronic daily headache R51.9 Psychogenic nonepileptic seizure F44.5
[2023-11-19 09:21] VITALS: BP 108/70; PULSE 80; RESP 17; O2SAT 99; BMI 28.2
== END 2023-11-19 09:44 | disposition home or self-care (01) ==
PROVIDERS: PCP Internal Medicine; Visit Provider Psychiatry & Neurology Neurology
DX: G43.E09 Chronic migraine with aura, not intractable, without status migrainosus (principal); F44.5 Conversion disorder with seizures or convulsions
CPT/HCPCS: 99214

== ENCOUNTER → 2023-11-19 09:13 | Outpatient (BNVA) | payer OTHER, SELFPAY | PROVIDERS: PCP Internal Medicine; Visit Provider Psychiatry & Neurology Neurology | DX: G43.E09 Chronic migraine with aura, not intractable, without status migrainosus (principal); R51.9 Headache, unspecified; F44.5 Conversion disorder with seizures or convulsions | CPT/HCPCS: 99212 ==

== ENCOUNTER 2024-02-07 13:48 | Outpatient (AMB) | payer OTHER, SELFPAY ==
--- NOTE | 2024-02-07 14:02 | AM.OFFWIN_ITS ---
Intake Vital Signs 02/07/24 14:03 Height 5 ft 6 in Weight 179 lb BMI 28.9 BP 150/90 H Blood Pressure Location Lt brachial Position Sitting Pulse 96 Pulse Source Pulse Oximeter Temp 98.7 F Temp Source Temporal Artery Scan Pulse Oximetry (%) 98 Oxygen Delivery Method Room Air Intake Visit Reasons: EP lump on right side hip Intake Note: pt is here today for lump on rt side hip today Patient Tobacco Use Status: Never used Tobacco Allergies pine nut Allergy (Mild, Verified 02/07/24 14:05) Rash Seasonal Allergies Allergy (Mild, Verified 02/07/24 14:05) Runny Nose face paint Allergy (Intermediate, Uncoded 11/19/23 09:21) face breaks out epsom salt Adverse Reaction (Severe, Uncoded 11/19/23 09:21) nimbness from head to toe. Do you need a note to return to daycare/school/sports/work: Yes HPI HPI Comments History of Present Illness Details 33 y/o female patient who presents to [facility] in clinic with c/o feeling a lump right lower abdomen. Pt reports noticing one side of her Lower abdomen large compared to the other side. Pt believes that her right flank is swollen compared to left flank. Denies pain. [facility] Medical History Back pain Cervical spondylosis Neck pain Psychogenic nonepileptic seizure Chronic daily headache Chronic migraine with aura Right hand pain Left hand pain Physical exam Seizure-like activity Insomnia due to other mental disorder EMELY (generalized anxiety disorder) Mild major depression, single episode Abdominal pain Overweight (BMI 25.0-29.9) Hypovitaminosis D Surgical History History of carpal tunnel surgery Family History Father No problems noted. Mother HTN (hypertension) Diabetes Family/Other Medical history unknown Substance use disorder Family/Other Mental health disorder Social History Housing: Apartment Alcohol intake: current Alcohol intake frequency: holidays/special occasions only Patient Tobacco Use Status: Never used Tobacco e-Cigarette/Vaping Use: Never Used Second Hand Smoke Exposure: Yes service: No Current occupational status: unemployed Cognitive needs: No Hearing needs: No Vision needs: No Female Reproductive History Menstrual Age of Menarche: 9 Review of Systems Const All systems reviewed & are unremarkable except as noted in HPI and below Physical Exam Vital Signs: Last Vital Signs Temp 98.7 F 02/07/24 14:03 Pulse 96 02/07/24 14:03 BP 150/90 H 02/07/24 14:03 Pulse Ox 98 02/07/24 14:03 Oxygen Delivery Method Room Air 02/07/24 14:03 BMI result Body Mass Index 28.9 Const General: comfortable and no acute distress Nutritional Appearance: overweight Orientation/consciousness: patient oriented x3 Skin General skin exam: no rashes or lesions noted Neuro General: patient oriented x3, gait normal and moves all extremities Psych Speech and movement: Clear speech present and Pressured speech present Affect: Anxious affect present Attitude: cooperative Thought content: suicidality, no homicidality, no delusions and delusions Assessment & Plan Assessment & Plan (1) Flank mass: Code(s): R19.00 - Intra-abdominal and pelvic swelling, mass and lump, unspecified site Plan: - Bilateral flank fat is equal on both sides, no noticeable body anomaly. - Pt has an extensive mental health conditions with body dsymophia. Coding Level of Care Code Est Pt Level 3 (70713) Diagnoses Flank mass R19.00 Time Spent (min) 15
[2024-02-07 14:03] VITALS: BP 150/90; PULSE 96; TEMP 37.1; O2SAT 98; BMI 28.9
== END 2024-02-07 14:51 | disposition home or self-care (01) ==
PROVIDERS: PCP Internal Medicine; Visit Provider Nurse Practitioner Family
DX: R19.00 Intra-abdominal and pelvic swelling, mass and lump, unspecified site (principal)
CPT/HCPCS: 99213

== ENCOUNTER 2024-07-28 13:49 | Outpatient (AMB) | payer OTHER, SELFPAY ==
--- NOTE | 2024-07-28 13:58 | MHC.OFFVIS ---
Intake Visit Reasons: Follow Up Intake Note: patient presents for follow up. patient still having gentle collapses. Allergies pine nut Allergy (Mild, Verified 07/28/24 14:05) Rash Seasonal Allergies Allergy (Mild, Verified 07/28/24 14:05) Runny Nose face paint Allergy (Intermediate, Uncoded 07/28/24 14:05) face breaks out epsom salt Adverse Reaction (Severe, Uncoded 07/28/24 14:05) nimbness from head to toe. Medication List - Last Reconciled 07/28/24 by Elvia Esquivel MD amitriptyline 10 mg PO BEDTIME 30 days baclofen 10 mg PO BEDTIME buspirone 10 mg PO TID 30 days cholecalciferol (vitamin D3) 50 mcg PO DAILY 90 days escitalopram oxalate 10 mg PO DAILY 30 days fexofenadine (Shea Allergy) 60 mg PO BID fluticasone propion-salmeterol 115-21 mcg/actuation (Advair HFA) 2 puffs inhalation BID inhalational spacing device ([facility] spacer) As directed magnesium oxide 400 mg PO .qhs medroxyprogesterone (Provera) 10 mg PO DAILY Ventolin HFA 90 mcg/actuation (albuterol sulfate) 2 puffs inhalation Q6H PRN 30 days NS HPI Comments Details: 34y/o right handed female comes for f/u. she reports falls- calls them gentle falls as she slumps down. she describes pressure in her head and feeling off balance prior to her falls.SHe is not a good historian- reports 1-2 episodes a day. she is baclofen ,amitriptyline magnesium . she is under a lot of stress and feels that is causing her tension headaches Her c spine MRI showed mild spondylolisthesis with mild canal stenosis. she sees a therapist who she talks 2 times a week . Previous history- she has h/o significant psychiatric and medical issues ( depression , non epileptic seizures, fibromyalgia etc). she was seen by [facility] group in 2021 and had neuropsyhc eval which was inconclusive as her cognitive symptoms were life long and she was unable to recall her developmental history. Her intellectual functioning was low to average . Normal scores on visuospatial construction, nonverbal abstraction, General knowledge , visual story memory set shifting. Variable performances on concentration, working memory and executive function. Her main concerns today are the persistent head pain or pressure.It started about 1 year ago she says the whole had fills with pressure, legs give out and affects her equilibrium. she says this is different form headaches - it is as if her head is like a balloon filled with air.she has 1-3 times a day and lasts few minutes. she also has migraines for many years now. It can be frontal, occipital , whole head . It is pounding throbbing pain with light and noise sensitivty, nausea. she uses excedrin migraine 2 tabs to help.she has 2-3 times a week.she may have visual aura she also describes a daily general headaches which are frontal . No noise or light sensitvity.she takes excedrin she takes 4-6 excedrin migraines per day for 3 years now. she has h/o psyhcogenic seizures. Her last episode was 1 year ago and was admitted at [facility] .She has numbness, palpitations, cannot move and unresponsive. she says she can hear people but cannot respond and some involuntary movements. she has therapist and med doctor for her mood. she has chronic sleep issues.she has trouble falling asleep , staying asleep and has night terrors, sleep paralysis. she denies any urinary issues. [facility] Medical History Back pain Cervical spondylosis Neck pain Psychogenic nonepileptic seizure Chronic daily headache Chronic migraine with aura Right hand pain Left hand pain Physical exam Seizure-like activity Insomnia due to other mental disorder EMELY (generalized anxiety disorder) Mild major depression, single episode Abdominal pain Overweight (BMI 25.0-29.9) Hypovitaminosis D Surgical History History of carpal tunnel surgery Family History Father No problems noted. Mother HTN (hypertension) Diabetes Family/Other Medical history unknown Substance use disorder Family/Other Mental health disorder Social History Housing: Apartment Alcohol intake: current Alcohol intake frequency: holidays/special occasions only Patient Tobacco Use Status: Never used Tobacco e-Cigarette/Vaping Use: Never Used Second Hand Smoke Exposure: Yes service: No Current occupational status: unemployed Cognitive needs: No Hearing needs: No Vision needs: No Female Reproductive History Menstrual Age of Menarche: 9 Physical Exam Const General: cooperative, healthy appearing and comfortable Nutritional Appearance: average body habitus Orientation/consciousness: patient oriented x3 Eyes Pupils: Equal, round and reactive pupils present Neuro General: patient oriented x3, tone normal, moves all extremities and no focal motor deficits Cranial nerves: Yes Facial sensation intact/muscles of mastication intact, Yes Equal, round and reactive pupils present, Yes Bilaterally intact EOM present, Yes Nystagmus not present, Yes Normal facial strength present, Yes Midline tongue present, Yes Symmetric palate elevation present and Yes Ability to bilaterally elevate shoulders present Cognition (Neuro): normal cognition Gait exam (Neuro): Normal gait present Motor exam (neuro): 5/5 motor strength present throughout and Normal motor muscle tone present throughout Deep tendon reflexes (DTR's): Right triceps reflex intensity grade: 3+, Left triceps reflex intensity grade: 3+, Rt Biceps (C5, C6): 3+, Left biceps reflex intensity grade: 3+, Right brachioradialis reflex intensity grade: 3+, Left brachioradialis reflex intensity grade: 3+, Right patellar reflex intensity grade: 3+ and Left patellar reflex intensity grade: 3+ Coordination: [id number] test normal Psych Affect: Animated affect present Assessment & Plan Assessment & Plan (1) Chronic migraine with aura: Comment: capo vetsibular migraine Code(s): G43.E09 - Chronic migraine with aura, not intractable, without status migrainosus Category: Medical Qualifiers: Status migrainosus presence: without status migrainosus Intractability: not intractable Qualified Code(s): G43.E09 - Chronic migraine with aura, not intractable, without status migrainosus (2) Chronic daily headache: Code(s): R51.9 - Headache, unspecified Category: Medical (3) Psychogenic nonepileptic seizure: Code(s): F44.5 - Conversion disorder with seizures or convulsions Category: Medical Plan: stable now. Plan magnesium 400mg qhs Her chronic headaches are likely cervicogenic. Her MMSE was normal today - her cognition is closely related to her mood - f/u psychologist baclofen 10 mg qhs Increase amitriptyline 25mg qhs - Neck exercises Orders: Orders RT home sleep study Today G47.10 - Hypersomnia, unspecified, R06.83 - Snoring Medications: Changed From amitriptyline 10 mg PO BEDTIME 30 days 30 tabs 1RF To amitriptyline 25 mg PO BEDTIME 30 days 30 tabs 1RF Discontinued sumatriptan succinate (Imitrex) Discontinued Reason: Patient no longer taking take 1 tab at onset of headache; if no relief may repeat 1 tab after at least 2 hrs; max = 4 tabs/24 hr PO 14 tabs 6RF Coding Level of Care Code Est Pt Level 4 (41512) Complex EM visit Add On G2211 Diagnoses Chronic migraine with aura without status migrainosus, not intractable G43.E09 Status migrainosus presence: without status migrainosus Intractability: not intractable Chronic daily headache R51.9 Psychogenic nonepileptic seizure F44.5
== END 2024-07-28 14:33 | disposition home or self-care (01) ==
PROVIDERS: PCP Internal Medicine; Visit Provider Psychiatry & Neurology Neurology
DX: G43.E09 Chronic migraine with aura, not intractable, without status migrainosus (principal); R51.9 Headache, unspecified; F44.5 Conversion disorder with seizures or convulsions
CPT/HCPCS: 99214; G2211

== ENCOUNTER → 2024-07-28 13:49 | Outpatient (BNVA) | payer OTHER, SELFPAY | PROVIDERS: PCP Internal Medicine; Visit Provider Psychiatry & Neurology Neurology | DX: G43.E09 Chronic migraine with aura, not intractable, without status migrainosus (principal); G47.10 Hypersomnia, unspecified; F44.5 Conversion disorder with seizures or convulsions; R06.83 Snoring; Z91.81 History of falling | CPT/HCPCS: 99212 ==

== ENCOUNTER 2024-08-12 14:48 | Outpatient (AMB) | payer OTHER, SELFPAY ==
[2024-08-12 14:59] VITALS: BP 126/80; BMI 30.2
--- NOTE | 2024-08-12 14:59 | MHC.PC.OV ---
Vital Signs 08/12/24 14:59 Height 5 ft 6 in Weight 187 lb BMI 30.2 BP 126/80 Blood Pressure Location Lt brachial Position Sitting Intake Visit Reasons: follow up Newspaper Stuffer Required: No Accompanied by: Self / Same As Patient Allergies pine nut Allergy (Mild, Verified 08/12/24 15:23) Rash Seasonal Allergies Allergy (Mild, Verified 08/12/24 15:23) Runny Nose face paint Allergy (Intermediate, Uncoded 08/12/24 15:23) face breaks out epsom salt Adverse Reaction (Severe, Uncoded 08/12/24 15:23) nimbness from head to toe. Medication List - Last Reconciled 08/12/24 by Malika Moore MD amitriptyline 25 mg PO BEDTIME 30 days baclofen 10 mg PO BEDTIME buspirone 10 mg PO TID 30 days cholecalciferol (vitamin D3) 50 mcg PO DAILY 90 days escitalopram oxalate 10 mg PO DAILY 30 days fexofenadine (Shea Allergy) 60 mg PO BID fluticasone propion-salmeterol 115-21 mcg/actuation (Advair HFA) 2 puffs inhalation BID inhalational spacing device ([employer] Poo[employer] spacer) As directed magnesium oxide 400 mg PO .qhs Ventolin HFA 90 mcg/actuation (albuterol sulfate) 2 puffs inhalation Q6H PRN 30 days NS Tobacco use date assessed: 10/18/23 Dental Screening Dental Screen Date: 08/12/24 Did you have a dental visit in the last 12 months?: Yes Did you have a dental problem in the last 6 months where you did not have access to dental care?: No Was dental information given to patient?: Patient has dentist HPI HPI Comments History of Present Illness Details The patient is a 34-year-old female presenting with chronic migraines with aura and likely vestibular migraines. She experiences persistent migraines daily, which are less severe after medication adjustments, but still notable. The migraines result in intense head pressure, equilibrium loss, and vision issues. The patient also reports worsening pressure radiation and jennifer collapses, with memory lapses noticed in everyday interactions. These symptoms have prompted the need for a sleep study due to the pre-existing sleep apnea possibly contributing to the issues. The patient's chronic migraine diagnosis includes suggestions of potential vertebral or neck involvement. Previous recommendations included adjustments in amitriptyline dosage and termination of sumatriptan use. Management currently involves daily amitriptyline, magnesium supplements, and a proposed sleep study to explore sleep apnea's role in her symptoms. Additionally, the patient has a history of asthma and allergic rhinitis, influencing her health, especially during allergy flare-ups. The asthma symptoms seem controlled with a steroid inhaler, yet there are notes of increasing respiratory difficulty. [facility] Medical History (Updated 08/13/24 @ 09:53 by Malika Moore MD) Snoring Hypersomnia Back pain Cervical spondylosis Neck pain Psychogenic nonepileptic seizure Chronic daily headache Chronic migraine with aura Right hand pain Left hand pain Physical exam Seizure-like activity Insomnia due to other mental disorder EMELY (generalized anxiety disorder) Mild major depression, single episode Abdominal pain Overweight (BMI 25.0-29.9) Hypovitaminosis D Surgical History History of carpal tunnel surgery Family History Father No problems noted. Mother HTN (hypertension) Diabetes Family/Other Medical history unknown Substance use disorder Family/Other Mental health disorder Social History Housing: Apartment Alcohol intake: current Alcohol intake frequency: holidays/special occasions only Patient Tobacco Use Status: Never used Tobacco e-Cigarette/Vaping Use: Never Used Second Hand Smoke Exposure: Yes service: No Current occupational status: unemployed Cognitive needs: No Hearing needs: No Vision needs: No Female Reproductive History Menstrual Age of Menarche: 9 Questionnaire Thrive Questionnaire Date Thrive assessed: 10/18/23 EMELY-7 AMB Questionnaire EMELY-7 Date EMELY - 7 assessed: 10/18/23 Source: Developed by Drs. Larry Helms, Maria Luz Lawrence, Simon Mccann and colleagues, with an educational alisa from [employer]. Review of Systems Const All systems reviewed & are unremarkable except as noted in HPI and below Card Denies chest pain at rest, Denies chest pain with activity, Denies edema, Denies irregular heart rhythm, Denies claudication, Denies dyspnea, Denies dyspnea on exertion, Denies orthopnea, Denies paroxysmal nocturnal dyspnea and Denies slow heart rate Resp Denies cough, Denies dyspnea and Denies dyspnea on exertion GI Denies abdominal pain, Denies change in bowel habits, Denies excessive flatus, Denies nausea and Denies vomiting Neuro Denies behavioral changes and Denies lack of coordination Psych Denies behavioral changes Physical exam (Primary Care) Vital Signs: Last Vital Signs BP 126/80 08/12/24 14:59 BMI result Body Mass Index 30.2 BMI Assessment/Plan discussion: High BMI High, discussed plan: lifestyle, weight reduction, dietary and physical activity Tobacco/Smoking Status: Tobacco use Status Tobacco use date assessed 10/18/23 08/12/24 15:03 Patient Tobacco Use Status Never used Tobacco 08/12/24 15:03 e-Cigarette/Vaping Use Never Used 08/12/24 15:03 Thrive Assessment: Date of Thrive Assessment Date Thrive assessed 10/18/23 08/12/24 15:03 Resp Effort & Inspection: normal respiratory effort Auscultation: clear to auscultation bilaterally Cardio Jugular venous distension: no JVD Rate: regular rate Rhythm: regular rhythm Heart sounds: S1 normal heart sound present and S2 normal heart sound present Extrem General: Yes full ROM Office Procedures Flu Questionnaire Does the patient have a severe egg allergy?: No Immunizations Fluarix Triv [id number] (PF) 45 mcg (15 mcg x 3)/0.5 mL IM syringe Performing Provider: Malika Moore MD [facility] Documented (not given) by: ZULEIKA Dominguez on 08/12/24 16:14 Reason Not Given: Patient Refused Coding Level of Care Code Est Pt Level 4 (90693) Complex EM visit Add On G2211 Diagnoses Chronic migraine with aura without status migrainosus, not intractable G43.E09 Status migrainosus presence: without status migrainosus Intractability: not intractable Mild asthma J45.909 Multiple allergies Z88.9 Lumbar pain M54.50 Time Spent (min) 22 Assessment & Plan Assessment & Plan (1) Chronic migraine with aura: Comment: capo anthony migraine Code(s): G43.E09 - Chronic migraine with aura, not intractable, without status migrainosus Category: Medical Qualifiers: Status migrainosus presence: without status migrainosus Intractability: not intractable Qualified Code(s): G43.E09 - Chronic migraine with aura, not intractable, without status migrainosus (2) Mild asthma: Code(s): J45.909 - Unspecified asthma, uncomplicated Category: Medical (3) Multiple allergies: Code(s): Z88.9 - Allergy status to unspecified drugs, medicaments and biological substances Category: Medical (4) Lumbar pain: Code(s): M54.50 - Low back pain, unspecified Category: Medical Plan - Chronic Migraine with Aura: Continue magnesium supplementation and daily amitriptyline intake. Discontinue sumatriptan. - Likely Vestibular Migraine: Plan for further evaluation following sleep study results. - Sleep Apnea: Schedule and complete a sleep study to ascertain contribution to memory issues. - Allergic Rhinitis/Asthma: Continue using steroid inhaler, monitor symptoms, and engage with allergy/immunology management for proper inhaler technique and medication review. - Sciatica: Encourage use of heat therapy for pain relief; note changes in symptoms with physical activity or environmental changes. - Memory Impairment: Evaluate any connections with sleep apnea post-study; reassess cognitive function in future visits. Patient was informed and verbally consented to the use of an ambient scribe for clinic note documentation during this visit. I discussed with the patient the potential diagnosis of vestibular migraines, highlighting symptoms and related neck issues contributing to head pressure and dizziness. We explored the temporality of migraines and made adjustments to her medication, ceasing sumatriptan for risk of interactions. The patient expressed current alleviation with adjusted amitriptyline. I explained the necessity of the proposed sleep study, particularly focusing on its role in addressing sleep apnea, which potentially impacts her memory and cognitive function. We reviewed asthma and allergy management, emphasizing adherence to the existing inhaler regimen. We discussed potential sciatica aggravation due to colder weather, with a suggestion to continue heat therapy. Orders: Orders Influenza [id number] Immunization 08/12/24 Z23 - Encounter for immunization Vitamin D 25-OH Total 08/12/24 E55.9 - Vitamin D deficiency, unspecified Lipid Panel 08/12/24 E78.5 - Hyperlipidemia, unspecified Comprehensive [place]. Panel Fast 08/12/24 R51.9 - Headache, unspecified Medications: Refilled cholecalciferol (vitamin D3) 50 mcg PO DAILY 90 days 90 caps 1RF E55.9 - Vitamin D deficiency, unspecified Patient Instructions: - Complete the sleep study as scheduled. - Continue with the current medication plan, including amitriptyline and magnesium. - Utilize a heating pad for sciatica-related pain. - Keep an asthma inhaler on hand and use as prescribed. - Follow up for further evaluation and management after diagnostic results.
== END 2024-08-12 15:45 | disposition home or self-care (01) ==
LOC: HO.HMCH 14:48
PROVIDERS: PCP Internal Medicine; Visit Provider Internal Medicine
DX: G43.E09 Chronic migraine with aura, not intractable, without status migrainosus (principal); J45.909 Unspecified asthma, uncomplicated; Z88.9 Allergy status to unspecified drugs, medicaments and biological substances; M54.50 Low back pain, unspecified

== ENCOUNTER → 2024-08-12 14:48 | Outpatient (BNVA) | payer OTHER, SELFPAY | PROVIDERS: PCP Internal Medicine; Visit Provider Internal Medicine | DX: G43.E09 Chronic migraine with aura, not intractable, without status migrainosus (principal); J45.909 Unspecified asthma, uncomplicated; M54.50 Low back pain, unspecified; Z88.9 Allergy status to unspecified drugs, medicaments and biological substances | CPT/HCPCS: 90471; 99212 ==

== ENCOUNTER 2024-08-28 07:51 | Outpatient (REF) | payer OTHER, SELFPAY ==
[2024-08-28 08:57] LABS: Alanine Aminotransferase 18 U/L (0-31); Albumin Level 4.3 g/dL (3.5-5.0); Alkaline Phosphatase 81 U/L (39-117); Anion Gap 12 (12-20); Aspartate Amino Transferase 26 U/L (5-31); Bilirubin Total 0.5 mg/dL (0.0-1.0); Blood Urea Nitrogen 7 mg/dL (9-16); Carbon Dioxide 29 mmol/L (22-29); Chloride 105 mmol/L (96-108); Cholesterol 204 mg/dL (<200); Estimated Glomerular Filt Rate > 60; Glucose Fasting 102 mg/dL (60-99); HDL Cholesterol 41 mg/dL (>40); LDL Cholesterol Calculated 137 mg/dL (<100); Potassium 4.2 mmol/L (3.3-5.1); Sodium 142 mmol/L (135-145); Total Protein 7.6 g/dL (6.5-8.0); Triglycerides 134 mg/dL (<150)
[2024-08-28 09:17] LABS: Vitamin D 25-OH Total 42.5 ng/mL (>30)
== END 2024-08-28 07:52 | disposition home or self-care (01) ==
LOC: HO.LAB 07:51
PROVIDERS: PCP Internal Medicine; Visit Provider Internal Medicine
DX: E78.5 Hyperlipidemia, unspecified (principal); E55.9 Vitamin D deficiency, unspecified; R51.9 Headache, unspecified
CPT/HCPCS: 36415; 80053; 80061; 82306

== ENCOUNTER → 2024-09-04 07:52 | Outpatient (REF) | payer OTHER, SELFPAY | LOC: HO.SL 07:52 | PROVIDERS: PCP Internal Medicine; Visit Provider Psychiatry & Neurology Neurology | DX: G47.10 Hypersomnia, unspecified (principal); R06.83 Snoring | CPT/HCPCS: 95806 ==

== ENCOUNTER → 2024-09-04 08:05 | Outpatient (BNV) | payer OTHER, SELFPAY | PROVIDERS: PCP Internal Medicine; Visit Provider Psychiatry & Neurology Neurology | DX: G47.10 Hypersomnia, unspecified (principal); R06.83 Snoring | CPT/HCPCS: 95806 ==

== ENCOUNTER 2024-10-13 09:01 | Outpatient (AMB) | payer OTHER, SELFPAY ==
--- NOTE | 2024-10-13 09:05 | MHC.OFFVIS ---
Vital Signs 10/13/24 09:07 Height 5 ft 6 in Weight 193 lb BMI 31.1 BP 98/68 Blood Pressure Location Rt brachial Position Sitting Intake Visit Reasons: 2 mo f/u Allergies pine nut Allergy (Mild, Verified 10/13/24 09:07) Rash Seasonal Allergies Allergy (Mild, Verified 10/13/24 09:07) Runny Nose face paint Allergy (Intermediate, Uncoded 10/13/24 09:07) face breaks out epsom salt Adverse Reaction (Severe, Uncoded 10/13/24 09:07) nimbness from head to toe. HPI Comments Details: 34y/o right handed female comes for f/u.No improvement or change since last visit. No falls she describes pressure in her head and feeling off balance prior to her falls.SHe is not a good historian- reports 1-2 episodes a day.( 30 sec - 60 sec) decreased tension type headaches- 1 since her last visit she is baclofen ,amitriptyline magnesium . she is still under a lot of stress. Her c spine MRI showed mild spondylolisthesis with mild canal stenosis. she sees a therapist who she talks 2 times a week . Previous history- she has h/o significant psychiatric and medical issues ( depression , non epileptic seizures, fibromyalgia etc). she was seen by [facility] neurology group in 2021 and had neuropsyhc eval which was inconclusive as her cognitive symptoms were life long and she was unable to recall her developmental history. Her intellectual functioning was low to average . Normal scores on visuospatial construction, nonverbal abstraction, General knowledge , visual story memory set shifting. Variable performances on concentration, working memory and executive function. Her main concerns today are the persistent head pain or pressure.It started about 1 year ago she says the whole had fills with pressure, legs give out and affects her equilibrium. she says this is different form headaches - it is as if her head is like a balloon filled with air.she has 1-3 times a day and lasts few minutes. she also has migraines for many years now. It can be frontal, occipital , whole head . It is pounding throbbing pain with light and noise sensitivty, nausea. she uses excedrin migraine 2 tabs to help.she has 2-3 times a week.she may have visual aura she also describes a daily general headaches which are frontal . No noise or light sensitvity.she takes excedrin she takes 4-6 excedrin migraines per day for 3 years now. she has h/o psyhcogenic seizures. Her last episode was 1 year ago and was admitted at [facility] .She has numbness, palpitations, cannot move and unresponsive. she says she can hear people but cannot respond and some involuntary movements. she has therapist and med doctor for her mood. she has chronic sleep issues.she has trouble falling asleep , staying asleep and has night terrors, sleep paralysis. she denies any urinary issues. [facility] Medical History Snoring Hypersomnia Back pain Cervical spondylosis Neck pain Psychogenic nonepileptic seizure Chronic daily headache Chronic migraine with aura Right hand pain Left hand pain Physical exam Seizure-like activity Insomnia due to other mental disorder EMELY (generalized anxiety disorder) Mild major depression, single episode Abdominal pain Overweight (BMI 25.0-29.9) Hypovitaminosis D Surgical History History of carpal tunnel surgery Family History Father No problems noted. Mother HTN (hypertension) Diabetes Family/Other Medical history unknown Substance use disorder Family/Other Mental health disorder Social History Housing: Apartment Alcohol intake: current Alcohol intake frequency: holidays/special occasions only Patient Tobacco Use Status: Never used Tobacco e-Cigarette/Vaping Use: Never Used Second Hand Smoke Exposure: Yes service: No Current occupational status: unemployed Cognitive needs: No Hearing needs: No Vision needs: No Female Reproductive History Menstrual Age of Menarche: 9 Physical Exam Vital Signs: Last Vital Signs BP 98/68 10/13/24 09:07 BMI result Body Mass Index 31.1 Const General: cooperative, healthy appearing and comfortable Nutritional Appearance: average body habitus Orientation/consciousness: patient oriented x3 Eyes Pupils: Equal, round and reactive pupils present Neuro General: patient oriented x3, tone normal, moves all extremities and no focal motor deficits Cranial nerves: Yes Facial sensation intact/muscles of mastication intact, Yes Equal, round and reactive pupils present, Yes Bilaterally intact EOM present, Yes Nystagmus not present, Yes Normal facial strength present, Yes Midline tongue present, Yes Symmetric palate elevation present and Yes Ability to bilaterally elevate shoulders present Cognition (Neuro): normal cognition Gait exam (Neuro): Normal gait present Motor exam (neuro): 5/5 motor strength present throughout and Normal motor muscle tone present throughout Coordination: [id number] test normal Psych Affect: Animated affect present Assessment & Plan Assessment & Plan (1) Chronic migraine with aura: Comment: capo vestibular migraine Code(s): G43.E09 - Chronic migraine with aura, not intractable, without status migrainosus Category: Medical Qualifiers: Status migrainosus presence: without status migrainosus Intractability: not intractable Qualified Code(s): G43.E09 - Chronic migraine with aura, not intractable, without status migrainosus (2) Chronic daily headache: Code(s): R51.9 - Headache, unspecified Category: Medical (3) Psychogenic nonepileptic seizure: Code(s): F44.5 - Conversion disorder with seizures or convulsions Category: Medical Plan: stable now. Plan magnesium 400mg qhs Her chronic headaches are better. baclofen 10 mg qhs Amitriptyline 25mg qhs - Neck exercises F/u with psychologist - has an anointment with med provider Coding Level of Care Code Est Pt Level 4 (40330) Complex EM visit Add On G2211 Diagnoses Chronic migraine with aura without status migrainosus, not intractable G43.E09 Status migrainosus presence: without status migrainosus Intractability: not intractable Chronic daily headache R51.9 Psychogenic nonepileptic seizure F44.5
[2024-10-13 09:07] VITALS: BP 98/68; BMI 31.1
--- OUTSIDE RECORDS SUMMARY | 2024-10-13 13:21 | XMS_ITS | Encounter Summary ---
Author Organization [facility] Address [address] [place] [address] Care Team Providers Care Car Ferry Captain Name Role Phone Malika Moore MD Primary Care Provider [phone] Reason for Referral * Neurology (Routine) - Authorized Specialty Diagnoses / Procedures Referred By Dario nevarez Referred To Contact Neurology Diagnoses Numbness and tingling in left hand Procedures EMG two limbs Verena Kerr MD [address] [address] [facility] Neurodiagnostic [address] [place] [address] Referral ID Status Reason Start Date Expiration Date V isits Requested Visits Authorized [id number] Authorized 10/04/2024 10/04/2025 1 1 Reason for Visit * Reason Comments Follow-up Numbness/tingling Follow-up Pain, most severe sy mptoms Encounter Details Date Type Department Care Team ([facility] st Contact Info) Description 10/03/2024 9:15 AM EST Office Visit Orthopedic Surgery - [place] [address] [address] Verena Kerr MD [address] [address] Numbness and tingling in left hand (Primary Dx); Chronic pain of right wrist Social History Tobacco Use Types Packs/Day Years Used Date Smoking Tobacco: Never Smokeless Tobacco: Never Alcohol Use Standard Drinks/Week Comments Never 0 (1 standard drink = 0.6 oz pur e alcohol) Sex and Gender Information Value Date Recorded Sex Assigned at Not on file Gender Identity Female 09/26/2024 1:03 PM EST Sexual Orientation Lesbian or Clancy 09/26/2024 1: 03 PM EST Job Start Date Occupation Industry Not on file Not on file Not on file documented as of this encounter Last Filed Vital Signs Vital Sign Reading Time Taken Comments Blood Pressure - - Pulse - - Temperature - - Respiratory Rate - - Oxygen Saturation - - Inhaled Oxygen Concentration - - Weight 83.9 kg (185 lb) 10/03/2024 9:42 AM EST Height 157.5 cm (5' 2 ) 10/03/2024 9:42 AM EST Body Mass Index 33.84 10/03/2024 9:42 AM EST documented in this encounter Progress Notes * Verena Kerr MD - 10/03/2024 9:15 AM EST CHIEF COMPLAINT/REASON FOR VISIT: Bilateral hand pain and numbness SUBJECTIVE: The patient was last seen in 2022. They have had both left and right endoscopic carpal tunnel releases done in the past. They present with complaints of the left hand occasionally goes numb while driving. The numbness reportedly involves the long ring and small finger. Also, the right wrist acts upwith use. There has been no trauma. This has been gradually progressive. Other health issues include a possible diagnosis of vestibular migraines. The patient does see a neurologist. OBJECTIVE: On exam here today there is no obvious redness swelling or induration of either hand. There is no thenar or hypothenar intrinsic atrophy. Skin and nails appear normal. The patient has intact pulses. Patient is able to flex extend abduct adduct the fingers and circumduct both thumbs as well as flex and extend both wrists. There is no evidence of any joint swelling, synovitis, or tenosynovitis along the flexors or extensors. On the patient's right wrist there is tenderness to palpation over the dorsum of the radiocarpal joint and slightly over the first dorsal compartment. No tenderness at the DRUJ, ulnar head, or fovea.There is a negative Chintan's test. Negative Tinel's, negative Phalen's. Patient has approximately 60 of flexion and extension. On the patient's left side there is similar range of motion. There is a negative Tinel's negative Phalen's. No swelling of the digits or of the wrist. No Tinel's over the cubital tunnel. Negative flexed elbow test. Patient is able to flex and extend the elbows as well as lift their arms up and forward flexion. There does not appear to be any limitation to rotation of the C-spine to the left or to the right. XR Wrist 3+ Views Right AP, lateral, oblique of the right wrist was obtained on 10/03/2024. There were no obvious fractures, lytic lesions, or unusual calcifications. Joint spaces are maintained. Soft tissue envelope appears within normal limits. No carpal collapse noted on the lateral view. XR Cervical Spine 4-5 Views AP, lateral, obliques of the C-spine were obtained on 10/03/2024. No prior images available for comparison. No obvious fractures, lytic lesions, or unusual calcifications. There is some straightening of the C-spine with loss of the normal lordosis. ASSESSMENT: 1. Numbness and tingling in left hand 2. Chronic pain of right wrist Patient has some intermittent tingling. These are not reproducible here today with provocative testing. It seems reasonable to get an EMG. For the wrist pain it seems like there is some modest radial sided pain which could represent some early de Quervain's tendinitis. A splint was dispensed. This can be worn episodically as needed for support PLAN: Try the splinting. Return after EMG. Verena Kerr MD Patient Active Problem List Diagnosis Left carpal tunnel syndrome Right carpal tunnel syndrome Vertebrobasilar migraine Numbness and tingling in left hand Chronic pain of right wrist documented in this encounter Plan of Treatment Upcoming Encounters Date Type Department Care Team (Late st Contact Info) Description 10/14/2024 3:45 PM EST Appointment [facility] Neurodiagnostic [address] [place] [phone] Scheduled Orders Name Type Priority Associated Diagnoses Orde r Schedule EMG two limbs Neurology Routine Numbness and tingling in left hand 1 Occurrences starting 10/04/2024 until 10/04/2025 documented as of this encounter Visit Diagnoses Diagnosis Numbness and tingling in left hand- Primary Disturbance of skin sensation Chronic pain of right wrist documented in this encounter Historical Medications * This list may reflect changes made after this encounter. Medication Sig Dispensed Refills Start Date End Date amitriptyline (ELAVIL) 25 mg tablet Take by mouth at bedtime. baclofen (LIORESAL) 10 mg tablet Take 1 tablet (10 mg total) by mouth. at bedtime. 01/02/2024 SUMAtriptan (IMITREX) 50 mg tablet 1 TAB AT ONSET OF HEADACHE MAY REPEAT ONCE AFTER AT LEAST 2 HOUR IF NO RELIEF-MAX PER 24 HOUR: 4 TAB 12/22/2023 magnesium oxide (MAG-OX) 400 mg (241.3 elemental magnesium) tablet Take 1 tablet (400 mg total) by mouth at bedtime. 12/29/2023 Advair HFA 115-21 mcg/actuation inhaler Inhale 2 puffs by mouth 2 (two) times a day. 12/01/2023 escitalopram (LEXAPRO) 10 mg tablet Take 1 tablet (10 mg total) by mouth. cholecalciferol (VITAMIN D-3) 50 mcg (2,000 unit) capsule Take 1 capsule (2,000 Units total) by mouth 1 (one) time each day. for 90 days 10/21/2023 busPIRone (BUSPAR) 10 mg tablet Take 1 tablet (10 mg total) by mouth. added in this encounter Care Teams Car Ferry Captain Relationship Specialty Start Date End Date Malika Moore MD [address] [place] [address] , [address] [facility] D/B/A: [facility] DARYL Veronica PCP - General Internal Medicine 01/20/22 documented as of this encounter
--- OUTSIDE RECORDS SUMMARY | 2024-10-13 13:21 | XMS_ITS | Clinical Summary ---
Author Organization 175 [facility] Address [address] [place] [address] Phone Care Team Providers Care Aeronautical Engineering Teacher Name Role Phone Malika Moore MD Primary Care Provider [phone] Allergies Active Allergy Reactions Criticality Noted Date Comments Pollen Extracts 10/03/2024 Many environmental allergies Medications Medication Sig Dispensed Refills Start Date End Date Status busPIRone (BUSPAR) 10 mg tablet Take 1 tablet (10 mg total) by mouth. Active cholecalciferol (VITAMIN D-3) 50 mcg (2,000 unit) capsule Take 1 capsule (2,000 Units total) by mouth 1 (one) time each day. for 90 days 10/21/2023 Active escitalopram (LEXAPRO) 10 mg tablet Take 1 tablet (10 mg total) by mouth. Active Advair HFA 115-21 mcg/actuation inhaler Inhale 2 puffs by mouth 2 (two) times a day. 12/01/2023 Active magnesium oxide (MAG-OX) 400 mg (241.3 elemental magnesium) tablet Take 1 tablet (400 mg total) by mouth at bedtime. 12/29/2023 Active SUMAtriptan (IMITREX) 50 mg tablet 1 TAB AT ONSET OF HEADACHE MAY REPEAT ONCE AFTER AT LEAST 2 HOUR IF NO RELIEF-MAX PER 24 HOUR: 4 TAB 12/22/2023 Active baclofen (LIORESAL) 10 mg tablet Take 1 tablet (10 mg total) by mouth. at bedtime. 01/02/2024 Active amitriptyline (ELAVIL) 25 mg tablet Take by mouth at bedtime. Active Active Problems Problem Noted Date Diagnosed Date Numbness and tingling in left hand 10/04/2024 Chronic pain of right wrist 10/04/2024 Vertebrobasilar migraine 10/03/2024 Left carpal tunnel syndrome 06/20/2022 Right carpal tunnel syndrome 06/20/2022 Encounters Date Type Department Care Team Description 10/03/2024 9:15 AM EST Office Visit Orthopedic Surgery - [place] 175 [facility] [address] [place] [address] Verena Kerr MD Numbness and tingling in left hand (Primary Dx); Chronic pain of right wrist from Last 3 Months Surgical History Surgery Date Site/Laterality Comments CARPAL TUNNEL RELEASE 06/17/2022 - 07/17/2022 Left CARPAL TUNNEL RELEASE 11/24/2022 Right Medical History Medical History Date Comments Anxiety state DX:Anxiety state Social History Tobacco Use Types Packs/Day Years [...] file Not on file Not on file Obstetrics History Last Filed Vital Signs Vital Sign Reading Time Taken Comments Blood Pressure 104/70 10/31/2022 9:46 AM EST Sit ting L Arm Pulse 82 10/31/2022 9:46 AM EST Temperature - - Respiratory Rate - - Oxygen Saturation - - Inhaled Oxygen Concentration - - Weight 83.9 kg (185 lb) 10/03/2024 9:42 AM EST Height 157.5 cm (5' 2 ) 10/03/2024 9:42 AM EST Body Mass Index 33.84 10/03/2024 9:42 AM EST Plan of Treatment Upcoming Encounters Date Type Department Care Team (Late st Contact Info) Description 10/14/2024 3:45 PM EST Appointment [facility] Neurodiagnostic [address] [place] [address] Health Maintenance Due Date Last Done Comments DTaP,Tdap,and Td Vaccines (1 - Tdap) 02/20/2007 Hepatitis B Vaccines (1 of 3 - 19+ 3-dose series) 02/20/2007 Cervical Cancer Screening: P ap Smear 02/20/2009 Depression Screening 08/27/2022 HIV Screening 08/27/2022 Hepatitis C Screening 08/27/2022 Social Influencers of Health Screening 08/27/2022 COVID-19 Vaccine (2023-2 5 season) 2024 11/01/2021, 10/04/2021 Influenza Vaccine (#1) 2024 09/14/2022 HIB Vaccines Aged Out No longer eligi ble based on patient's age to complete this topic HPV Vaccines Aged Out No longer eligi ble based on patient's age to complete this topic Hepatitis A Vaccines Aged Out No long er eligible based on patient's age to complete this topic IPV Vaccines Aged Out No longer eligi ble based on patient's age to complete this topic MMR Vaccines Aged Out No longer eligi ble based on patient's age to complete this topic Meningococcal ACWY Vaccine Aged Out N o longer eligible based on patient's age to complete this topic Pneumococcal Vaccine: Pediatrics (0 to 5 Years) and At-Risk Patients (6 to 64 Years) Aged Out No longer eligible b ased on patient's age to complete this topic RSV Immunization Patients Under 20 months Aged Out No longer eligible b ased on patient's age to complete this topic Varicella Vaccines Aged Out No longer eligible based on patient's age to complete this topic Procedures Procedure Name Priority Date/Time Associated Diagnosis Comments XR CERVICAL SPINE 4-5 VIEWS Routine 10/03/2024 10:27 AM EST Pain XR WRIST 3+ VIEWS RIGHT Routine 10/03/2024 10:26 AM EST Pain from Last 3 Months Results * XR Cervical Spine 4-5 Views (10/03/2024 10:27 AM EST) Anatomical Region Laterality Modality Spine, C-spine Computed Radiogr aphy Narrative 10/04/2024 8:34 PM EST AP, lateral, obliques of the C-spine were obtained on 10/03/2024. ??No prior images available for comparison. ??No obvious fractures, lytic lesions, or unusual calcifications. ??There is some straightening of the C-spine with loss of the normal lordosis. Verena Kerr MD IMG XR PROCEDURES * XR Wrist 3+ Views Right (10/03/2024 10:26 AM EST) Anatomical Region Laterality Modality Upper Extremities, Wrist Right Compute d Radiography Narrative 10/04/2024 8:34 PM EST AP, lateral, oblique of the right wrist was obtained on 10/03/2024. ??There were no obvious fractures, lytic lesions, or unusual calcifications. ?? Joint spaces are maintained. ??Soft tissue envelope appears within normal limits. ??No carpal collapse noted on the lateral view. Verena Kerr MD IMG XR PROCEDURES from Last 3 Months Care Teams Aeronautical Engineering Teacher Relationship Specialty Start Date End Date Malika Moore MD [address] [facility] , [address] [facility] D/B/A: [facility] [place], [place] PCP - General Internal Medicine 01/20/22
== END 2024-10-13 09:42 | disposition home or self-care (01) ==
PROVIDERS: PCP Internal Medicine; Visit Provider Psychiatry & Neurology Neurology
DX: G43.E09 Chronic migraine with aura, not intractable, without status migrainosus (principal); F44.5 Conversion disorder with seizures or convulsions
CPT/HCPCS: 99214; G2211

== ENCOUNTER → 2024-10-13 09:01 | Outpatient (BNVA) | payer OTHER, SELFPAY | PROVIDERS: PCP Internal Medicine; Visit Provider Psychiatry & Neurology Neurology | DX: G43.E09 Chronic migraine with aura, not intractable, without status migrainosus (principal); F44.5 Conversion disorder with seizures or convulsions | CPT/HCPCS: 99212 ==

== ENCOUNTER 2024-10-20 14:18 | Outpatient (AMB) | payer OTHER, SELFPAY ==
[2024-10-20 14:24] VITALS: BP 128/80; BMI 31.5
--- NOTE | 2024-10-20 14:24 | MHC.PC.OV ---
Vital Signs 10/20/24 14:24 Height 5 ft 6 in Weight 195 lb BMI 31.5 BP 128/80 Blood Pressure Location Lt brachial Position Sitting Intake Visit Reasons: PE Intake Note: Patient here for a physical exam Preservationist Required: No Accompanied by: Other Relationship Allergies pine nut Allergy (Mild, Verified 10/20/24 14:54) Rash Seasonal Allergies Allergy (Mild, Verified 10/20/24 14:54) Runny Nose face paint Allergy (Intermediate, Uncoded 10/20/24 14:54) face breaks out epsom salt Adverse Reaction (Severe, Uncoded 10/20/24 14:54) nimbness from head to toe. Medication List - Last Reconciled 10/20/24 by Malika Moore MD amitriptyline 25 mg PO BEDTIME 90 days baclofen 10 mg PO BEDTIME buspirone 10 mg PO TID 30 days cholecalciferol (vitamin D3) 50 mcg PO DAILY 90 days escitalopram oxalate 10 mg PO DAILY 30 days fexofenadine (Shea Allergy) 60 mg PO BID fluticasone propion-salmeterol 115-21 mcg/actuation (Advair HFA) 2 puffs inhalation BID inhalational spacing device (OptiChamber Pooja VHC spacer) As directed magnesium oxide 400 mg PO .qhs Ventolin HFA 90 mcg/actuation (albuterol sulfate) 2 puffs inhalation Q6H PRN 30 days NS Tobacco use date assessed: 10/20/24 Dental Screening Dental Screen Date: 10/20/24 Did you have a dental visit in the last 12 months?: No Did you have a dental problem in the last 6 months where you did not have access to dental care?: No Was dental information given to patient?: Patient has dentist HPI HPI Comments History of Present Illness Details The patient is a 34-year-old female presenting for her physical exam with chronic migraine with aura and associated memory impairment. The patient reports that her migraines have not improved with current medication, amitriptyline, and she has experienced increased frequency of migraines in the past few days, leading to near-collapse episodes. She has been advised to transition from amitriptyline to topiramate, as amitriptyline has been ineffective. Additionally, the patient reports significant memory impairment affecting daily activities, which she finds increasingly frustrating. She has not noted any improvement in memory function despite therapy and interventions. There have been previous attempts at management with neuropsychological evaluation suggested by a peer, but the patient has not had such assessments yet. Recurrent episodes of abdominal discomfort, thought to be cysts, were reported, though previous imaging and exams have been inconclusive. Lastly, the patient discusses elevated cholesterol levels previously noted, for which lifestyle modifications were recommended rather than pharmacotherapy. - Cholesterol: 204 mg/dL, low risk for cardiovascular events calculated at 0.2% over the next 10 years - Blood pressure: noted as good at this visit - Cholesterol management: lifestyle modification, no pharmacological intervention needed - Vitamin D levels within normal range due to supplementation - Pap smear conducted in 2022 with HPV non-detectable - Tetanus vaccine offered during this visit [facility] Medical History Snoring Hypersomnia Back pain Cervical spondylosis Neck pain Psychogenic nonepileptic seizure Chronic daily headache Chronic migraine with aura Right hand pain Left hand pain Physical exam Seizure-like activity Insomnia due to other mental disorder EMELY (generalized anxiety disorder) Mild major depression, single episode Abdominal pain Overweight (BMI 25.0-29.9) Hypovitaminosis D Surgical History History of carpal tunnel surgery Family History Father No problems noted. Mother HTN (hypertension) Diabetes Family/Other Medical history unknown Substance use disorder Family/Other Mental health disorder Social History Housing: Apartment Alcohol intake: current Alcohol intake frequency: holidays/special occasions only Patient Tobacco Use Status: Never used Tobacco e-Cigarette/Vaping Use: Never Used Second Hand Smoke Exposure: Yes service: No Current occupational status: unemployed Cognitive needs: No Hearing needs: No Vision needs: No Female Reproductive History Menstrual Age of Menarche: 9 Questionnaire PHQ-9 Over the last 2 weeks, how often have you been bothered by any of the following problems? 1. Little interest or pleasure in doing things: several days 2. Feeling down, depressed, or hopeless: several days 3. Trouble falling or staying asleep, or sleeping too much: nearly every day 4. Feeling tired or having little energy: nearly every day 5. Poor appetite or overeating: several days 6. Feeling bad about yourself - or that you are a failure or have let yourself or your family down: not at all 7. Trouble concentrating on things, such as reading the newspaper or watching television: more than half the days 8. Moving or speaking so slowly that other people could have noticed. Or the opposite - being so fidgety or restless that you have been moving around a lot more than usual: several days 9. Thoughts that you would be better off or of hurting yourself in some way: not at all Total score: 12 Depression Screening Interpretation: Positive Depression Screening Follow-up: Existing condition, Community Mental Health Worker F/U and Follow-up Visit Requested Depression Screening Done: Yes 53770 - PHQ-9 Billing: Yes Source: Developed by Drs. Larry Helms, Maria Luz Lwarence, Simon Mccann and colleagues, with an educational alisa from [employer]. Thrive Questionnaire Date Thrive assessed: 10/20/24 I am a: Patient What is your living situation today?: I have a steady place to live Within the past 12 months, did the food you bought not last and you didn't have the money to get more?: Sometimes True Within the past 12 months, did you worry whether your food would run out before you got money to buy more?: Sometimes True Do you have trouble paying for medicines?: No Do you have trouble getting transportation to medical appointments?: No Do you have trouble paying your heating and electricity bill?: No Do you have trouble taking care of your child, family member or friend?: No Do you have trouble with day-to-day activities such as bathing, preparing meals, shopping, managing finances, etc.?: Yes Are you currently unemployed and looking for a job?: No Are you interested in more education?: No Please select the resources that you would like help with: Food Currently or been in a relationship where the following occur: No concerns reported THRIVE Score: 2 AUDIT C Alcohol Use Questionnaire (AUDIT-C) 1. How often do you have a drink containing alcohol?: Monthly or less 2. How many drinks containing alcohol do you have on a typical day when you are drinking?: 1 or 2 3. How often do you have six or more drinks on one occasion?: Never Total Score: 1 Score Reviewed/Action Taken: No EMELY-7 AMB Questionnaire EMELY-7 Date EMELY - 7 assessed: 10/20/24 Feeling nervous, anxious, or on edge: 1 = Several days Not being able to stop or control worryin = Several days Worrying too much about different things: 1 = Several days Trouble relaxin = Nearly every day Being so restless that it is hard to sit still: 2 = More than half the days Becoming easily annoyed or irritable: 1 = Several days Feeling afraid as if something awful might happen: 1 = Several days Total EMELY-7 score (0-4 normal; 5-9 mild; 10-14 moderate; 15-21 severe): 10 Source: Developed by Drs. Larry Helms, Maria Luz Lawrence, Simon Mccann and colleagues, with an educational alisa from [employer]. EMELY-7 Assessment Billing EMELY-7 Assessment Tool: EMELY-7 Assessment 85141 Review of Systems Const All systems reviewed & are unremarkable except as noted in HPI and below Card Denies chest pain at rest, Denies chest pain with activity, Denies edema, Denies irregular heart rhythm, Denies claudication, Denies dyspnea, Denies dyspnea on exertion, Denies orthopnea, Denies paroxysmal nocturnal dyspnea and Denies slow heart rate Resp Denies cough, Denies dyspnea and Denies dyspnea on exertion GI Reports abdominal pain, Denies change in bowel habits, Denies excessive flatus, Denies nausea and Denies vomiting Neuro Denies behavioral changes and Denies lack of coordination Psych Denies behavioral changes Physical exam (Primary Care) Vital Signs: Last Vital Signs BP 128/80 10/20/24 14:24 BMI result Body Mass Index 31.5 BMI Assessment/Plan discussion: High BMI High, discussed plan: lifestyle, weight reduction, dietary and physical activity Tobacco/Smoking Status: Tobacco use Status Tobacco use date assessed 10/20/24 10/20/24 14:28 Patient Tobacco Use Status Never used Tobacco 10/20/24 14:28 e-Cigarette/Vaping Use Never Used 10/20/24 14:28 PHQ-9: PHQ-9 Score PHQ-9: Total score 12 10/20/24 16:12 Depression Screening Interpretation: Positive Depression Screening Follow-up: Existing condition, Community Mental Health Worker F/U and Follow-up Visit Requested Thrive Assessment: Date of Thrive Assessment Date Thrive assessed 10/20/24 10/20/24 14:28 Currently or been in a relationship where the following occur: No concerns reported HENMT Head: Yes normal to inspection, Yes normocephalic and Yes atraumatic Ears: external ears normal Eyes General: appearance normal, both eyes and all related structures Eyelids: Yes eyelids normal Conjunctivae: conjunctivae normal Neck Neck: Yes normal visual inspection and Yes supple Resp Effort & Inspection: normal respiratory effort Auscultation: clear to auscultation bilaterally Cardio Jugular venous distension: no JVD Rate: regular rate Rhythm: regular rhythm Heart sounds: S1 normal heart sound present and S2 normal heart sound present GI Inspection: Yes normal to inspection Palpation (GI): Soft to palpation and nontender Auscultation: normal bowel sounds Skin General skin exam: no rashes or lesions noted Neuro General: no focal motor deficits Extrem General: Yes full ROM Psych Appearance: grossly normal Immunizations Boostrix Tdap 2.5 Lf unit-8 mcg-5 Lf/0.5 mL intramuscular syringe Performing Provider: Malika Moore MD [facility] Administered by: ZULEIKA Dominguez on 10/20/24 15:19 Dose Route Admin Location Dispensed Lot Number Expiration Date [facility] [employer] Service Writer 0.5 mL IM Left Deltoid 0.5 mL [id number] 12/03/26 22862-367-46 [facility] Given Date VIS Provided VIS Publication Date 10/20/24 Single Vaccine 21 Eligibility Eligibility Date Funding Source Not [facility] Eligible 10/20/24 Private Coding Level of Care Code Est Pt Level 3 (10273) Est Pt Prev Care 18-39y(38606) Diagnoses Physical exam Z00.00 Mild major depression, single episode F32.0 Lumbar pain M54.50 Abdominal pain R10.9 Additional Codes EMELY-7 Assessment Billing - EMELY-7 Assessment Tool: EMELY-7 Assessment 63364 ([id number]) PHQ-9 - 58303 - PHQ-9 Billing: Yes ([id number]) Time Spent (min) 34 Assessment & Plan Assessment & Plan (1) Physical exam: Code(s): Z00.00 - Encounter for general adult medical examination without abnormal findings Category: Medical (2) Mild major depression, single episode: Code(s): F32.0 - Major depressive disorder, single episode, mild Category: Medical (3) Lumbar pain: Code(s): M54.50 - Low back pain, unspecified Category: Medical (4) Abdominal pain: Code(s): R10.9 - Unspecified abdominal pain Category: Medical Plan - Migraine management: Transition from amitriptyline to topiramate to manage migraines with aura. - Memory impairment: Referral to neuropsychologist recommended for further evaluation. - Allergy management: Continue current medications including Shea and review inhaler technique and adherence. - Gastrointestinal symptoms: Refer patient to gastroenterology for further evaluation. - Preventive care: Administer tetanus vaccine today. Patient was informed and verbally consented to the use of an ambient scribe for clinic note documentation during this visit. I discussed with the patient the need to transition from amitriptyline to topiramate for her migraines, given the ineffectiveness of the current regimen. We reviewed the importance of gradually tapering off amitriptyline to avoid withdrawal issues. Referral to a neuropsychologist was presented as a necessary step to further evaluate and manage her memory impairment concerns. I mentioned the low cardiovascular risk despite elevated cholesterol, emphasizing lifestyle modifications over pharmacotherapy. We agreed on administering the tetanus vaccine to ensure up-to-date preventive care. I also highlighted the importance of adhering to asthma treatment to prevent exacerbations. Orders: Orders TDaP Immunization Today Z23 - Encounter for immunization Referrals Neuropsychiatry Referral F41.1 - Generalized anxiety disorder, G43.E09 - Chronic migraine with aura, not intractable, without status migrainosus Gastroenterology Referral R10.9 - Unspecified abdominal pain Medications: Refilled cholecalciferol (vitamin D3) 50 mcg PO DAILY 90 caps 1RF 90 days E55.9 - Vitamin D deficiency, unspecified escitalopram oxalate 10 mg PO DAILY 30 tabs 6RF 30 days Patient Instructions: - Begin the transition from amitriptyline, reducing the dose gradually as discussed. - Contact a neuropsychologist for memory assessment. - Maintain allergy and asthma medication routines, using alerts if necessary. - Follow up with gastroenterology for abdominal discomfort. - Return for tetanus vaccination today.
--- OUTSIDE RECORDS SUMMARY | 2024-10-20 15:58 | XMS_ITS | Encounter Summary ---
Author Organization [facility] Address [address] [place] [address] Care Team Providers Care Meat Smoker Name Role Phone Malika Moore MD Primary Care Provider [phone] Reason for Referral * Neurology (Routine) - Closed Specialty Diagnoses / Procedures Referred By Dario nevarez Referred To Contact Neurology Diagnoses Numbness and tingling in left hand Procedures EMG two limbs Verena Kerr MD [address] [phone] [facility] Neurodiagnostic [address] [place] [phone] Referral ID Status Reason Start Date Expiration Date Visits Re quested Visits Authorized [id number] Closed 10/04/2024 10/04/2025 1 1 Reason for Visit * Neurology (Routine) - Closed Specialty Diagnoses / Procedures Referred By Dario nevarez Referred To Contact Neurology Diagnoses Numbness and tingling in left hand Procedures EMG two limbs Verena Kerr MD [address] [phone] [facility] Neurodiagnostic [address] [place] [phone] Referral ID Status Reason Start Date Expiration Date Visits Re quested Visits Authorized [id number] Closed 10/04/2024 10/04/2025 1 1 Encounter Details Date Type Department Care Team (Latest Contact Info) Description 10/14/2024 3:26 PM EST - 10/14/2024 11:59 PM EST Hospital Encounter [facility] Neurodiagnostic [address] [place] [address] Numbness and tingling in left hand Discharge Disposition: Home or Self Care Social History Tobacco Use Types Packs/Day Years Used Date Smoking Tobacco: Never Smokeless Tobacco: Never Alcohol Use Standard Drinks/Week Comments Never 0 (1 standard drink = 0.6 oz pur e alcohol) Sex and Gender Information Value Date Recorded Sex Assigned at Female 10/14/2024 3:20 PM EST Gender Identity Female 09/26/2024 1:03 PM EST Sexual Orientation Lesbian or Clancy 09/26/2024 1: 03 PM EST Job Start Date Occupation Industry Not on file Not on file Not on file documented as of this encounter Medications at Time of Discharge Medication Sig Dispensed Refills Start Date End Date Advair HFA 115-21 mcg/actuation inhaler Inhale 2 puffs by mouth 2 (two) times a day. 12/01/2023 amitriptyline (ELAVIL) 25 mg tablet Take by mouth at bedtime. baclofen (LIORESAL) 10 mg tablet Take 1 tablet (10 mg total) by mouth. at bedtime. 01/02/2024 busPIRone (BUSPAR) 10 mg tablet Take 1 tablet (10 mg total) by mouth. cholecalciferol (VITAMIN D-3) 50 mcg (2,000 unit) capsule Take 1 capsule (2,000 Units total) by mouth 1 (one) time each day. for 90 days 10/21/2023 escitalopram (LEXAPRO) 10 mg tablet Take 1 tablet (10 mg total) by mouth. magnesium oxide (MAG-OX) 400 mg (241.3 elemental magnesium) tablet Take 1 tablet (400 mg total) by mouth at bedtime. 12/29/2023 SUMAtriptan (IMITREX) 50 mg tablet 1 TAB AT ONSET OF HEADACHE MAY REPEAT ONCE AFTER AT LEAST 2 HOUR IF NO RELIEF-MAX PER 24 HOUR: 4 TAB 12/22/2023 documented as of this encounter Discharge Disposition Disposition Code Departure Means Destination Home or Self Care documented in this encounter Plan of Treatment Not on file documented as of this encounter Procedures Procedure Name Priority Date/Time Associated Diagnosis Comments EMG 2 LIMBS Routine 10/14/2024 3:53 PM EST Numbness and tingling in left hand documented in this encounter Results * EMG two limbs (10/14/2024 3:53 PM EST) Narrative Jordan Rodriguez MD - 10/14/2024 4:43 PM EST Please see the attached report. Verena Kerr MD NEUROLOGY ORDERABLES documented in this encounter Visit Diagnoses Diagnosis Numbness and tingling in left hand Disturbance of skin sensation documented in this encounter Care Teams Meat Smoker Relationship Specialty Start Date End Date Malika Moore MD [address] [place] [address] , [address] [facility] D/B/A: [facility] DARYL Veronica PCP - General Internal Medicine 01/20/22 documented as of this encounter
--- OUTSIDE RECORDS SUMMARY | 2024-10-20 15:58 | XMS_ITS | Encounter Summary ---
Author Organization [facility] Address [address] [place] [address] Care Team Providers Care Synthetic Plasterer Name Role Phone Malika Moore MD Primary Care Provider [phone] Reason for Referral * Neurology (Routine) - Closed Specialty Diagnoses / Procedures Referred By Contac t Referred To Contact Neurology Diagnoses Numbness and tingling in left hand Procedures EMG two limbs Verena Kerr MD [address] [place] [phone] [facility] Neurodiagnostic [address] [place] [address] Referral ID Status Reason Start Date Expiration Date Visits Re quested Visits Authorized [id number] Closed 10/04/2024 10/04/2025 1 1 Reason for Visit * Reason Comments Follow-up Numbness/tingling Follow-up Pain, most severe sy mptoms Encounter Details Date Type Department Care Team ([facility] Contact Info) Description 10/03/2024 9:15 AM EST Office Visit Orthopedic Surgery - [place] [address] [phone] Verena Kerr MD [address] [place] [phone] Numbness and tingling in left hand [...] on file documented as of this encounter Results * EMG two limbs (10/14/2024 3:53 PM EST) Narrative Jordan Rodriguez MD - 10/14/2024 4:43 PM EST Please see the attached report. Verena Kerr MD NEUROLOGY ORDERABLES documented in this encounter Visit Diagnoses Diagnosis Numbness and tingling in left hand- Primary Disturbance of skin sensation Chronic pain of right wrist Numbness and tingling in left hand Disturbance of skin sensation documented in this encounter Historical Medications * [...] mouth. added in this encounter Care Teams Synthetic Plasterer Relationship Specialty Start Date End Date Malika Moore MD [address] [place] [address] , [address] [facility] D/B/A: [facility] DARYL Veronica PCP - General Internal Medicine 01/20/22 documented as of this encounter
--- OUTSIDE RECORDS SUMMARY | 2024-10-20 15:58 | XMS_ITS | Clinical Summary ---
Author Organization [address] [facility] Address [address] [place] [address] Phone Care Team Providers Care Educational Guidance Counselor Name Role Phone Malika Moore MD Primary Care Provider [phone] Allergies Active Allergy Reactions Criticality Noted Date [...] Encounters Date Type Department Care Team Description 10/14/2024 3:26 PM EST - 10/14/2024 11:59 PM EST Hospital Encounter [facility] Neurodiagnostic [address] [place] [address] Numbness and tingling in left hand Discharge Disposition: Home or Self Care 10/03/2024 9:15 AM EST Office Visit Orthopedic Surgery - [place] [address] [facility] [address] [place] [address] Verena Kerr MD Numbness and [...] 10/03/2024 9:42 AM EST Plan of Treatment Health Maintenance Due Date Last Done Comments DTaP,Tdap,and Td Vaccines (1 - Tdap) 02/20/2007 Hepatitis B Vaccines (1 of 3 - 19+ 3-dose series) 02/20/2007 Cervical Cancer Screening: P ap Smear 02/20/2009 Depression Screening 08/27/2022 HIV Screening 08/27/2022 Hepatitis C Screening 08/27/2022 Social Influencers of Health Screening 08/27/2022 COVID-19 Vaccine (3 - 2023-2 5 season) 2024 11/01/2021, 10/04/2021 Influenza Vaccine [...] EST Numbness and tingling in left hand XR CERVICAL SPINE 4-5 VIEWS Routine 10/03/2024 10:27 AM EST Pain XR WRIST 3+ VIEWS RIGHT Routine 10/03/2024 10:26 AM EST Pain from Last 3 Months Results * EMG two limbs (10/14/2024 3:53 PM EST) Narrative Jordan Rodriguez MD - 10/14/2024 4:43 PM EST Please see the attached report. Verena Kerr MD NEUROLOGY ORDERABLES * XR Cervical Spine 4-5 Views (10/03/2024 [...] PROCEDURES from Last 3 Months Care Teams Educational Guidance Counselor Relationship Specialty Start Date End Date Malika Moore MD [address] [place] [address] , [address] [facility] D/B/A: [facility] DARYL Veronica PCP - General Internal Medicine 01/20/22
== END 2024-10-20 15:20 | disposition home or self-care (01) ==
PROVIDERS: PCP Internal Medicine; Visit Provider Internal Medicine
DX: Z00.00 Encounter for general adult medical examination without abnormal findings (principal); F32.0 Major depressive disorder, single episode, mild; M54.50 Low back pain, unspecified; R10.9 Unspecified abdominal pain; Z23 Encounter for immunization

== ENCOUNTER → 2024-10-20 14:18 | Outpatient (BNVA) | payer OTHER, SELFPAY | PROVIDERS: PCP Internal Medicine; Visit Provider Internal Medicine | DX: Z00.00 Encounter for general adult medical examination without abnormal findings (principal); Z23 Encounter for immunization; F32.0 Major depressive disorder, single episode, mild; M54.50 Low back pain, unspecified; R10.9 Unspecified abdominal pain | CPT/HCPCS: 90471; 90715; 96127; 99212; 99395 ==

== ENCOUNTER 2025-01-12 10:56 | Outpatient (REF) | payer OTHER, SELFPAY ==
[2025-01-12 14:28] LABS: Hematocrit 36.8 % (37.0-47.0); Mean Corpuscular HGB Conc 35.3 g/dl (31.0-35.0); Mean Corpuscular Hemoglobin 29.7 pg (27.0-33.0); Mean Corpuscular Volume 84.2 fL (80.0-98.0); Mean Platelet Volume 10.2 fL (9.4-12.3); Platelet Count 282 X10*3/uL (160-400); Red Blood Count 4.37 X10*6/uL (4.20-5.50); Red Cell Distribution Width 12.6 % (11.0-16.0); White Blood Count 8.7 X10*3/uL (4.8-10.8)
[2025-01-12 15:02] LABS: Alanine Aminotransferase 15 U/L (0-31); Albumin Level 4.5 g/dL (3.5-5.0); Aspartate Amino Transferase 26 U/L (5-31); Bilirubin Direct 0.2 mg/dL (0.0-0.5); Bilirubin Total 0.6 mg/dL (0.0-1.0); C Reactive Protein 0.45 mg/dL (< or = 0.50); Total Protein 7.4 g/dL (6.5-8.0)
[2025-01-12 15:15] LABS: Alkaline Phosphatase 84 U/L (39-117)
[2025-01-12 15:18] LABS: TSH reflex Free T4 0.78 uIU/mL (0.32-4.0)
--- OUTSIDE RECORDS SUMMARY | 2025-01-12 16:30 | XMS_ITS | Clinical Summary ---
Author Organization 175 [facility] Address [address] [place] [address] Phone Care Team Providers Care Envelope Fold Operator Name Role Phone Malika Moore MD Primary Care Provider [phone] Allergies Active Allergy Reactions Criticality Noted Date [...] EDT - 12/14/2024 7:27 AM EDT Emergency [facility] Emergency [address] [place] [address] Abdominal wall pain in epigastric region (Primary Dx) Discharge Disposition: Home or Self Care 10/14/2024 3:26 PM EST - 10/14/2024 11:59 PM EST Hospital Encounter [facility] [address] [place] [address] Numbness and tingling in left hand Discharge [...] there is no subdiaphragmatic free air. Code 87849 -------- FINAL REPORT -------- Dictated By: Alexi Johnson Dictated Date: 12/14/2024 09:47 ET Assigned Physician: Alexi Johnson Reviewed and Electronically Signed By: Alexi Johnson Signed Date: 12/14/2024 09:49 ET Workstation ID: [id number] Transcribed By: Self Edit Transcribed Date: 12/14/2024 [...] and there is no subdiaphragmaticfree air. Code 16492 -------- FINAL REPORT -------- Dictated By: Alexi Johnson Dictated Date: 12/14/2024 09:47 ET Assigned Physician: Alexi Johnson Reviewed and Electronically Signed By: Alexi Johnson Signed Date: 12/14/2024 09:49 ET Workstation ID: [id number] Transcribed By: Self Edit Transcribed Date: 12/14/2024 [...] auto differential (12/13/2024 11:27 PM EDT) Pathologist [facility] WBC 11.2(H) 4.8 - 10.8 K/mcL LAB HEMETOLOGY METHOD 12/14/2024 12:10 AM EDT [facility] RBC 4.30 3.80 - 4.80 M/mcL LAB HEMETOLOGY METHOD 12/14/2024 12:10 AM EDT [facility] Hemoglobin 12.7 11.5 - 16.0 g/dL LAB HEMETOLOGY METHOD 12/14/2024 12:10 AM EDT [facility] Hematocrit 37.4 35.0 - 47.0 % LAB HEMETOLOGY METHOD 12/14/2024 12:10 AM [facility] MCV 87.4 79.0 - 98.0 FL LAB HEMETOLOGY METHOD 12/14/2024 12:10 AM [facility] MCH 29.7 27.0 - 32.0 pcg LAB HEMETOLOGY METHOD 12/14/2024 12:10 AM [facility] MCHC 34.0 32.0 - 37.0 g/dL LAB HEMETOLOGY METHOD 12/14/2024 12:10 AM [facility] RDW 12.6 11.0 - 15.0 % LAB HEMETOLOGY METHOD 12/14/2024 12:10 AM [facility] Platelets 307 130 - 400 K/mcL LAB HEMETOLOGY METHOD 12/14/2024 12:10 AM [facility] MPV 10.8 7.0 - 11.0 FL LAB HEMETOLOGY METHOD 12/14/2024 12:10 AM [facility] NRBC 0.0 <1.0 % LAB HEMETOLOGY METHOD 12/14/2024 12:10 AM [facility] NRBC Absolute 0.00 <0.10 K/mcL LAB HEMETOLOGY METHOD 12/14/2024 12:10 AM [facility] Neutrophils Relative 58.0 % LAB HEMETOLOGY METHOD 12/14/2024 12:10 AM [facility] Lymphocytes Relative 33.4 % LAB HEMETOLOGY METHOD 12/14/2024 12:10 AM [facility] Monocytes Relative 6.4 % LAB HEMETOLOGY METHOD 12/14/2024 12:10 AM [facility] Eosinophils Relative 0.7 % LAB HEMETOLOGY METHOD 12/14/2024 12:10 AM [facility] Basophils Relative 0.5 % LAB HEMETOLOGY METHOD 12/14/2024 12:10 AM [facility] Immature Granulocytes Relative 1.0 % LAB HEMETOLOGY METHOD 12/14/2024 12:10 AM [facility] Neutrophils Absolute 6.49 1.50 - 7.00 K/mcL LAB HEMETOLOGY METHOD 12/14/2024 12:10 AM EDT [facility] Lymphocytes Absolute 3.74 1.00 - 5.00 K/[facility] LAB HEMETOLOGY METHOD 12/14/2024 12:10 AM EDT [facility] Monocytes Absolute 0.72 0.20 - 1.00 K/[facility] LAB HEMETOLOGY METHOD 12/14/2024 12:10 AM EDT [facility] Eosinophils Absolute 0.08 0.00 - 0.50 K/[facility] LAB HEMETOLOGY METHOD 12/14/2024 12:10 AM EDT [facility] Basophils Absolute 0.06 0.00 - 0.20 K/[facility] LAB HEMETOLOGY METHOD 12/14/2024 12:10 AM EDT [facility] Immature Granulocytes Absolute 0.11(H) 0.00 - 0.03 K/[facility] LAB HEMETOLOGY METHOD 12/14/2024 12:10 AM EDT [facility] Blood Venous blood specimen / Unknown Venipuncture / Unknown 12/13/2024 11:27 PM EDT 12/14/2024 12:01 AM EDT us Sam Sawyer MD LAB BLOOD ORDERABLES Final Resu lt [facility] [address] [place] [address], * Lipase (12/13/2024 11:27 PM EDT) Lipase 15 13 - 75 unit/L LAB CHEMISTRY METHOD 12/14/2024 12:36 AM EDT [facility] Blood Venous blood specimen / Unknown Venipuncture / Unknown 12/13/2024 11:27 PM EDT 12/14/2024 12:01 AM EDT us Karoline VINCENT LAB BLOOD ORDERABLES Final Re sult [facility] [address] [place] [address], * (ABNORMAL) Comprehensive metabolic panel (12/13/2024 11:27 PM EDT) Sodium 141 133 - 145 mmol/L LAB CHEMISTRY METHOD 12/14/2024 12:36 AM [facility] Potassium 4.0 3.5 - 5.5 mmol/L LAB CHEMISTRY METHOD 12/14/2024 12:36 AM [facility] Chloride 109 96 - 110 mmol/L LAB CHEMISTRY METHOD 12/14/2024 12:36 AM [facility] CO2 25 21 - 32 mmol/L LAB CHEMISTRY METHOD 12/14/2024 12:36 AM [facility] Anion Gap 7 3 - 11 LAB CHEMISTRY METHOD 12/14/2024 12:36 AM [facility] Glucose 112(H) 70 - 100 mg/dL LAB CHEMISTRY METHOD 12/14/2024 12:36 AM [facility] BUN 10 5 - 25 mg/dL LAB CHEMISTRY METHOD 12/14/2024 12:36 AM [facility] Creatinine 0.82 0.50 - 1.10 mg/dL LAB CHEMISTRY METHOD 12/14/2024 12:36 AM [facility] eGFR 95 >=60 mL/min/1. 73m2 LAB CHEMISTRY METHOD 12/14/2024 12:36 AM [facility] Comment:Calculation based on the??Chronic Kidney Disease Epidemiology Collaboration (CKD-EPI) equation refit??without adjustment for race. BUN/Creatinine Ratio 12.2 LAB CHEMISTRY METHOD 12/14/2024 12:36 AM [facility] Calcium 9.8 8.5 - 10.5 mg/dL LAB CHEMISTRY METHOD 12/14/2024 12:36 AM [facility] AST (SGOT) 21 10 - 42 unit/L LAB CHEMISTRY METHOD 12/14/2024 12:36 AM EDT [facility] ALT (SGPT) 21 10 - 60 unit/L LAB CHEMISTRY METHOD 12/14/2024 12:36 AM EDT [facility] Alkaline Phosphatase 102 42 - 121 unit/L LAB CHEMISTRY METHOD 12/14/2024 12:36 AM EDT [facility] Total Protein 7.5 6.0 - 8.0 g/dL LAB CHEMISTRY METHOD 12/14/2024 12:36 AM EDT [facility] Albumin 4.3 3.2 - 5.0 g/dL LAB CHEMISTRY METHOD 12/14/2024 12:36 AM EDT [facility] Total Bilirubin 0.3 0.0 - 1.4 mg/dL LAB CHEMISTRY METHOD 12/14/2024 12:36 AM EDT [facility] Blood Venous blood specimen / Unknown Venipuncture / Unknown 12/13/2024 11:27 PM EDT 12/14/2024 12:01 AM EDT [facility]INCENT LAB BLOOD ORDERABLES Final Re sult [facility] [address] [place] [address], * EMG two limbs (10/14/2024 3:53 PM EST) Narrative Jordan Rodriguez MD - 10/14/2024 4:43 PM EST Please see the attached report. Verena Kerr MD NEUROLOGY ORDERABLES Final Re sult from Last 3 Months Insurance [facility] [place] [address] Care Teams Envelope Fold Operator Relationship Specialty Start Date End Date Malika Moore MD 2 [facility] , [address] [place] [address] Physician Associ D/B/A: [facility] DARYL Veronica PCP - General Internal Medicine 01/20/22
[2025-01-13 10:08] LABS: IgA 305 mg/dL (47-310); IgG 1106 mg/dL (600-1640); IgM 124 mg/dL (50-300)
[2025-01-17 17:49] LABS: Calprotectin, Fecal <5 mcg/g
== END 2025-01-12 10:57 | disposition home or self-care (01) ==
LOC: HO.LAB 10:56
PROVIDERS: PCP Internal Medicine; Visit Provider Internal Medicine
DX: R10.9 Unspecified abdominal pain (principal); R19.4 Change in bowel habit; R11.0 Nausea
CPT/HCPCS: 36415; 80076; 82784; 83993; 84443; 85027; 86140; 99202

== ENCOUNTER 2025-01-12 10:56 | Outpatient (AMB) | payer OTHER, SELFPAY ==
--- NOTE | 2025-01-12 11:03 | MHC.OFFVIS ---
Vital Signs 01/12/25 11:04 Height 5 ft 6 in Weight 180 lb 12.465 oz BMI 29.2 BP 122/98 H Blood Pressure Location Lt brachial Position Sitting Pulse 102 H Intake Visit Reasons: Unspecified abdominal pain Intake Note: Daniel presents in the office as a new patient for abdominal pains. CC: She states that she is having issues with her stomach - has been on and off for 2 months. She states it was gone for a couple weeks and was in the hospital. She was seen at the [facility] ED for 7 hours. They did Xray, Urines, Blood and Ultrasound. She gets both constipation and diarrhea - states it could take turns or has both at the same time. Polisher Hand Required: No Allergies pine nut Allergy (Mild, Verified 01/12/25 11:05) Rash Seasonal Allergies Allergy (Mild, Verified 01/12/25 11:05) Runny Nose face paint Allergy (Intermediate, Uncoded 01/12/25 11:05) face breaks out epsom salt Adverse Reaction (Severe, Uncoded 01/12/25 11:05) nimbness from head to toe. HPI Comments Details: 34 y.o F with PMH of TMJ, fibromyalgia, depression, nonepileptic seizures who is here for R sided abd pain. Has had longstanding GI issues x 5-6 years. Prev GI was in [place] - moved to [place] before [facility]. Main issue is RUQ which feels like a rib popping or pulling sensation, RLQ pain as well epigastric pain which is sharp. Pain does not radiate anywhere. Sometimes also has difficulty breathing when pain is severe. Assoc with nausea, but no vomiting. BMs fluctuate between diarrhea and constipation. No fam hx of CRC in FDRs. 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 Does get occasional pet bites and scratches. Celiac serology negative 2020. Pt was also seen in [facility] for similar sx a few weeks ago and had prelim work up including US abd which was normal. [facility], [facility] Medical History (Updated 01/12/25 @ 11:32 by Imelda Alberts MD) Snoring Hypersomnia Back pain Cervical spondylosis Neck pain Psychogenic nonepileptic seizure Chronic daily headache Chronic migraine with aura Right hand pain Left hand pain Physical exam Seizure-like activity Insomnia due to other mental disorder EMELY (generalized anxiety disorder) Mild major depression, single episode Abdominal pain Overweight (BMI 25.0-29.9) Hypovitaminosis D Surgical History (Updated 01/12/25 @ 11:05 by ZULEIKA Roblero) History of esophagogastroduodenoscopy (EGD) History of carpal tunnel surgery Family History Father No problems noted. Mother HTN (hypertension) Diabetes Family/Other Medical history unknown Substance use disorder Family/Other Mental health disorder Social History Housing: Apartment Alcohol intake: current Alcohol intake frequency: holidays/special occasions only Patient Tobacco Use Status: Never used Tobacco e-Cigarette/Vaping Use: Never Used Second Hand Smoke Exposure: Yes service: No Current occupational status: unemployed Cognitive needs: No Hearing needs: No Vision needs: No Female Reproductive History Menstrual Age of Menarche: 9 Review of Systems Const All systems reviewed & are unremarkable except as noted in HPI and below Physical Exam Vital Signs: Last Vital Signs Pulse 102 H 01/12/25 11:04 BP 122/98 H 01/12/25 11:04 BMI result Body Mass Index 29.2 No apparent distress Nonicteric Abdomen soft, nondistended, tender to palpation which diminishes with distraction Alert and oriented x3, normal gait Assessment & Plan Assessment & Plan (1) Abdominal pain: Code(s): R10.9 - Unspecified abdominal pain Category: Medical (2) Change in bowel habit: Code(s): R19.4 - Change in bowel habit Category: Medical (3) Nausea: Code(s): R11.0 - Nausea Category: Medical Plan Ddx include IBD, IBS, delayed gastric emptying costocondral syndromes for RUQ pain, biliary dyskinesia. Plan: - Labs and UGIS ordered as below - If normal, will pursue testing for lesser common etiologies such as MCAS, gut angioedema, delayed gastric emptying and biliary dyskinesia - Add fiber supplementation to help regulate BMs Follow up 3 months Orders: Orders Liver Panel Today R10.9 - Unspecified abdominal pain TSH reflex Free T4 Today R10.9 - Unspecified abdominal pain Immunoglobulins,IgG IgA IgM Today R10.9 - Unspecified abdominal pain FL upper GI series Today R10.9 - Unspecified abdominal pain, R11.0 - Nausea Complete Blood Count no Diff Today R10.9 - Unspecified abdominal pain C Reactive Protein Today R19.4 - Change in bowel habit Calprotectin, Fecal Today R19.4 - Change in bowel habit Medications: New psyllium husk 3 grams PO DAILY 54 ea 1RF Coding Level of Care Code New Pt Level 4 (54140) Diagnoses Abdominal pain R10.9 Change in bowel habit R19.4 Nausea R11.0
[2025-01-12 11:04] VITALS: BP 122/98; PULSE 102; BMI 29.2
--- OUTSIDE RECORDS SUMMARY | 2025-01-12 13:10 | XMS_ITS ---
Author Organization [facility] Address [address] [id number] Care Team Providers Care Senior Process Engineer Name Role Phone HARSHIL CARBALLO Unavailable [phone] REASON FOR VISIT Lab results, menses concerns 01/09 Social History Sex Assigned At : Social History Observation Description Sex Assigned At Female Encounters Encounter Location Date Provider Diagnosis [address] [id number] 12/29/2024 HARSHIL CARBALLO Plan Of Treatment No Information Progress Notes * Daniel CARDOB:1990 ([age] yo F)Acc No.[id number]:12/29/2024 Patient:?Daniel CAR :1990???Age:34 Y???Sex:Female Address:[address] [place], [address] * true * Date:? Generated for Printi geovanni/Steven/eTransmitting on:?01/12/2025 01:10 PM EDT
--- OUTSIDE RECORDS SUMMARY | 2025-01-12 13:11 | XMS_ITS | Patient Health Record ---
Author Organization [facility] Address [address] [place] [phone] Care Team Providers Care Public Address Servicer Name Role Phone HARSHIL CARBALLO Unavailable [phone] Allergies Allergen (clinical drug ingredient) Drug/Non Drug Allergy documented on EMR Reaction Allergy Type Onset Date Status Cat dander Cat Dander Unknown Allergy Active Dust Mites Unknown Allergy Active Mold Unknown Allergy Active Pollen Pollen Unknown Allergy Active Rodents Unknown Allergy Active Results Component Value Reference Range Notes Wet Mount Reviewed date:01/09/2025 11:38:26 AM Interpretation:Few yeast buds, pH 5 Performing Lab: Notes/Report: Few yeast buds, pH 5 Clue Cells neg WBC few Hyphae few buds Trichomonas neg pH 5 MAGNUS Prep neg whiff TSH reflex to [id number] Reviewed date:12/29/2024 11:53:19 AM Interpretation:1.31 Normal Performing Lab:[facility], [address] [place] [address], Phone - [phone], Director - MDSoniyadry Notes/Report: TSH 1.310 0.450-4.500 uIU/mL Estradiol-[id number] Reviewed date:12/29/2024 11:54:06 AM Interpretation:27.2 Normal Performing Lab:[facility], [address] [place] [address], Phone - [phone], Director - MDJodry Notes/Report: Estradiol 27.7 Adult Female Range Follicular phase 12.5 - 166.0 Ovulation phase 85.8 - 498.0 Luteal phase 43.8 - 211.0 Postmenopausal <6.0 - 54.7 1st trimester 215.0 - >4300.0 Zac ECLIA methodology [id number] Reviewed date:12/29/2024 11:54:52 AM Interpretation:9.2 Normal Performing Lab:[facility] [place], [address] [facility], Phone - [phone], Director - MDSoniyadry Notes/Report: Prolactin 9.2 4.8-33.4 ng/mL [id number] Reviewed date:12/29/2024 11:54:28 AM Interpretation:9.2 Normal Performing Lab:[facility], [address] [place] [address] [place], Phone - [phone], Director - MDKayleeny Notes/Report: FSH 9.2 Adult Female Range Follicular phase 3.5 - 12.5 Ovulation phase 4.7 - 21.5 Luteal phase 1.7 - 7.7 Postmenopausal 25.8 - 134.8 Hemoglobin [id number] Reviewed date:12/29/2024 11:53:02 AM Interpretation:5.5%, Normal Performing Lab:[facility], [address] [place] [address], Phone - [phone], Director - Jacob Notes/Report: Hemoglobin A1c 5.5 4.8-5.6 % . Prediabetes: 5.7 - 6.4 Diabetes: >6.4 Glycemic control for adults with diabetes: <7.0 Reason For Referral No Information Medications Medication SIG (Take, Route, Frequency, Duration) Notes Start Date End Date Status Shea Active SUMAtriptan Active Magnesium Active Advair HFA Active Fluconazole 150 MG 1 tablet Orally One tablet stat for 1 days 01/09/2025 Active Escitalopram Oxalate 10 MG 1 tablet Oral ly Once a day Active Vitamin D Active busPIRone HCl 10 MG 1 tablet Orally Twic e a day Active Baclofen Active Amitriptyline HCl Ac tive Albuterol Active Topiramate 25mg Active Social History Sex Assigned At : Social History Observation Description Sex Assigned At Female Problems Problem Type SNOMED Code ICD Code Onset Dates Problem Status W/U Status Risk Notes Problem Irregular menstruation (55676855) Irregular menstruation, unspecified (N92.6) Active confirmed Vital Signs Blood pressure diastolic 82 mm Hg 12/12/2024 Height 5'2 in 12/12/2024 Blood pressure systolic 118 mm Hg 12/12/2024 Weight 186 lbs 12/12/2024 BMI 34.02 kg/m2 12/12/2024 Encounters Encounter Location Date Provider Diagnosis [address] [id number] 12/12/2024 HARSHIL CARBALLO Counseling, unspec ified Z71.9 ; Irregular menstruation, unspecified N92.6 and Encounter for screening for diabetes mellitus Z13.[address] [id number] 01/09/2025 HARSHIL CARBALLO Vaginitis, Acute N 76.0 ; Encounter for screening for other infectious and parasitic diseases Z11.8 ; Counseling, unspecified Z71.9 ; Encounter for screening for infections with a predominantly sexual mode of transmission Z11.3 and Other problems related to lifestyle Z72.[address] [id number] 12/17/2024 [address]BALLO [address] [id number] 12/29/2024 HARSHILERNIE CARBALLO Assessments Encounter Date Diagnosis (ICD Code) Assessment Notes Treatment Notes Treatment Clinical Notes Section Notes 12/12/2024 Irregular menstruation, unspecified (ICD-10 - N92.6) Reviewed concerns for changes in cycles and hot flashes. Reviewed last few cycles in t's cycle lucas. Cycle length is 25 days which is normal, last 3-4 days with significant less blood flow than what clt is used to. Reviewed that a number of factors can affect someone's cycle such as age, stress, medications, weight changes etc. Will do some hormone checks to further evaluate and plan to schedule a follow-up visit to discuss results. Clt briefly mentioned wanting a hysterectomy- not enough time to further evaluate this desire today but can review further at follow-up visit: desires for menses suppression, control, permenant sterilization, gender affirming hysterectomy etc. Plan for labs on cycle day 2-3. Will further evaluate medication list. For hgbA1C given recent wt gain and family hx of DM and concerns for hot flashes Need 2 out of 3 Sections from A-C Section A) Problems (only need one from below) One stable chronic illness Section B) Data (at least one of the following categories in this section) Category 1: (Choose 2 of the following): Order unique tests Section C) Risk Document low risk of morbidity/mor tality 12/12/2024 Counseling, unspecified (ICD-10 - Z71.9) Recommend pelvic exam to further evaluate concerns around dryness/discomfo rt with self pleasure. No signicant symptoms for vaginal infection check today. Will request records for pap hx- clt unsure when last done but possibly in the last 1-2 years Need 2 out of 3 Sections from A-C Section A) Problems (only need one from below) One stable chronic illness Section B) Data (at least one of the following categories in this section) Category 1: (Choose 2 of the following): Order unique tests Section C) Risk Document low risk of morbidity/mor tality 01/09/2025 Encounter for screening for other infectious and parasitic diseases (ICD-10 - Z11.8) Need 2 out of 3 Sections from A-C Section A) Problems (only need one from below) Section B) Data (need at least one of the following categories in this section) Category 1: (Choose three of the following): Review test results (each unique test counts as one) Order Unique tests Section C) Risk (any one of the following) Prescription drug management (this counts for the whole section) 01/09/2025 Vaginitis, Acute (ICD-10 - N76.0) Reviewed small amount of yeast findings on wet mount and treatment options. Will send for Vag plus to further evaluate. Offered to do pelvic exam today to further evaluate clt's concerns around dryness and swelling- clt prefers to defer an exam for now and do testing for infections. Return to the clinic if symptoms not relieved by treatment. Recommend pelvic exam and can consider vaginal estradiol if nothing else apparent on exam Clt has a strong preference for oral treatment over vaginal cream tx. Clt aware of the potential interaction with fluconazole and amitriptyline and escitalopram- clt using amitriptyline as needed, advised to not take it with fluconazole. Clt has tolerated fluconazole use in the past with escitalopram- no known cardiac issues- encouraged to monitor and report SE's. If symptoms not relieved by 1 fluconazole then will do vaginal cream- clt in agreement with plan Need 2 out of 3 Sections from A-C Section A) Problems (only need one from below) Section B) Data (need at least one of the following categories in this section) Category 1: (Choose three of the following): Review test results (each unique test counts as one) Order Unique tests Section C) Risk (any one of the following) Prescription drug management (this counts for the whole section) 01/09/2025 Counseling, unspecified (ICD-10 - Z71.9) Cycle length is 25 days, lasting 3-4 days with significant less blood flow than what clt is used to is still in the normal range. Lab work all WNL. Reviewed that a number of factors can affect someone's cycle such as age, stress, medications, weight changes. Clt is on Topiramate which is known to have reported cycle changes with use. Recommend clt to continue to monitor cycles- I want to know if no cycles are occuring or the are occuring shorter than 21 days. Reviewed that we can experience perimenopause symptoms upto 10 years prior to going through menses- can't confirm if that is what clt is experiencing currently. Clt brought up the desire for hysterectomy- reviewed clt needs to explore what their goals are. Is it for sterilization, menses suppression, gender affirmation? If it's mainly for menses suppression there are medical options for that- clt expressed hx of PTSD around hormonal BC methods. Reviewed that clt can always schedule a consult with HUMAN RESOURCE ADVISER for hysterectomy but to be aware that in order to have insurance coverage usually need medical reason or for GAHT. Advised clt to RTC if they would like to further explore medical options for menses suppression Need 2 out of 3 Sections from A-C Section A) Problems (only need one from below) Section B) Data (need at least one of the following categories in this section) Category 1: (Choose three of the following): Review test results (each unique test counts as one) Order Unique tests Section C) Risk (any one of the following) Prescription drug management (this counts for the whole section) 01/09/2025 Encounter for screening for infections with a predominantly sexual mode of transmission (ICD-10 - Z11.3) Discussed STI risks, screenings that are available through [facility] and safe sex. Clt aware of lab processing times and how to view results on portal and how positive results will be communicated Need 2 out of 3 Sections from A-C Section A) Problems (only need one from below) Section B) Data (need at least one of the following categories in this section) Category 1: (Choose three of the following): Review test results (each unique test counts as one) Order Unique tests Section C) Risk (any one of the following) Prescription drug management (this counts for the whole section) 12/12/2024 Encounter for screening for diabetes mellitus (ICD-10 - Z13.1) Need 2 out of 3 Sections from A-C Section A) Problems (only need one from below) One stable chronic illness Section B) Data (at least one of the following categories in this section) Category 1: (Choose 2 of the following): Order unique tests Section C) Risk Document low risk of morbidity/mor tality 01/09/2025 Other problems related to lifestyle (ICD-10 - Z72.89) Need 2 out of 3 Sections from A-C Section A) Problems (only need one from below) Section B) Data (need at least one of the following categories in this section) Category 1: (Choose three of the following): Review test results (each unique test counts as one) Order Unique tests Section C) Risk (any one of the following) Prescription drug management (this counts for the whole section) 01/09/2025 Other Need 2 out of 3 Sections from A-C Section A) Problems (only need one from below) Section B) Data (need at least one of the following categories in this section) Category 1: (Choose three of the following): Review test results (each unique test counts as one) Order Unique tests Section C) Risk (any one of the following) Prescription drug management (this counts for the whole section) Plan Of Treatment Pending Test Test Name Order Date NuSwab VG+, Jossy [id number] Insurance Providers Payer Name Payer Address Payer Phone Subscriber Number Group Number Insured Name Patient Relationship to Insured Coverage Start Date Coverage End Date [place] ATT [place]S [address] [id number] Daniel Sung Self - patient is the insured Medical (General) History Medical History History ICD Code Asthma Seizures Weight concerns Migraines, head pressure Fibromyalgia Vertigo Stomach problems
--- OUTSIDE RECORDS SUMMARY | 2025-01-12 13:11 | XMS_ITS ---
Author Organization [facility] Address [address] [place] [phone] Care Team Providers Care Spout Tender Name Role Phone KAIT HARSHIL Unavailable [phone] Allergies Allergen (clinical drug ingredient) Drug/Non Drug [...] neg pH 5 MAGNUS Prep neg whiff REASON FOR VISIT Follow-up Medications Medication SIG (Take, Route, Frequency, Duration) Notes Start Date End Date Status Vitamin D Active busPIRone HCl 10 MG 1 tablet Orally Twic e a day Active Baclofen Active Amitriptyline HCl Ac tive Albuterol Active Shea Active SUMAtriptan Active Magnesium Active Advair HFA Active Escitalopram Oxalate 10 MG 1 tablet Oral ly Once a day Active Fluconazole 150 MG 1 tablet Orally One tablet stat for 1 days 01/09/2025 Active Topiramate 25mg Active Social History Sex Assigned At : Social History Observation Description Sex Assigned At Female Encounters Encounter Location Date Provider Diagnosis [address] [phone] 01/09/2025 HARSHIL CARBALLO Vaginitis, Acute N 76.0 ; Encounter for screening for other infectious and parasitic diseases Z11.8 ; Counseling, unspecified Z71.9 ; Encounter for screening for infections with a predominantly sexual mode of transmission Z11.3 and Other problems related to lifestyle Z72.89 Assessments Encounter Date Diagnosis (ICD Code) Assessment Notes Treatment Notes Treatment Clinical Notes Section Notes 01/09/2025 Vaginitis, Acute (ICD-10 - N76.0) Reviewed [...] whole section) 01/09/2025 Encounter for screening for other infectious [...] clt can always schedule a consult with [facility] for hysterectomy but to be aware that [...] counts for the whole section) 01/09/2025 Other problems related to lifestyle (ICD-10 [...] for the whole section) Plan Of Treatment Medication Medication Name Sig Start Date Stop Date Notes Fluconazole 150 MG 1 tablet Orally One tablet stat for 1 days 01/09/2025 Treatment Notes Assessment Notes Vaginitis, Acute Reviewed small amount of yeast findings on [...] vaginal cream- clt in agreement with plan Counseling, unspecified Cycle length is 25 days, lasting 3-4 [...] clt can always schedule a consult with [facility] for hysterectomy but to be aware that in order to have insurance coverage usually need medical reason or for GAHT. Advised clt to RTC if they would like to further explore medical options for menses suppression Encounter for screening for infections with a predominantly sexual mode of transmission Discussed STI risks, screenings that are available through [facility] and safe sex. Clt aware of lab processing times and how to view results on portal and how positive results will be communicated Pending Test Test Name Order Date NuSwab VG+, Jossy [id number] Next Appt Details Follow Up: prn, Reason: Progress Notes * Daniel CARDOB:1990 ([age] yo F)Acc No.[id number]:01/09/2025 Progress Notes Patient:?Daniel CAR Provider:?HARSHIL CARBALLO :1990???Age:34 Y???Sex:Female D ate:01/09/2025 Address:[address] [place], [place] [id number] Subjective: * Chief Complaints: * ???Follow-up * HPI: ???Visit Narrative:?Clt seen recently for concerns around changes in cycle, vaginal dryness/swelling symptoms, hot flashes Day 3 labs done: FSH, Estradiol, TSH and PRL, HgbA1C all WNL Clt reports more signficant genital swelling sensation Clt wondering about hysterectomy FROM PREVIOUS VISIT:? From tracking lucas: 11/26 light bleeding x 2 days, spotting 2 days (25 days) 11/01 light bleeding x 1 day, spotting 2 days (25 days) 10/08 light bleeding x 2 days, spotting 1 day Notes 2 medication changes in the past year: Baclofen maybe for about a year, and Topamax for the past 2-3 months (clt a lttle unsure of timing of new meds). No hx of irreg cycles. No issues with acne or hisuitism. Reports around a 20lb wt gain in the past year. Family hx of DM. ?Current form of control:?abstinent.?Presenting Symptoms:?no current symptoms, menses concerns.?LMP:?12/20/2024.?Other Notes for the Clinician:?Clt states they received a period 12/20. Characteristics: 3 days, light blood loss to spotting.? * ROS:?General/Constitutional:?Comments?See HPI for details.? * Medical History:? 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 control:?none.?Last menstrual period:?11/29.?Last pap smear date:?04/2023 NIL, HPV neg.?Menarche: ?Age of menarche?9 ???Periods:?every 20-25 days, normal blood loss.?Sexual activity:?not currently sexually active, with women.?Sexually Transmitted Diseases (STDs):?none.?Unprotected sex in the last 5 days?:?no.?Unprotected sex in the past 10 days?:?no.? * OB History:?Total pregnancies:?0.? * Surgical History:?Denies Pas t Surgical History * Hospitalization/Major Diagno stic Procedure:?Denies Past Hospitalization * Family History:?Family Histo ry: hypertension, diabetes mellitus.? cancer. * Social History:?Food Access:?Food Access?The Client's current access to food is?Secure Food Access ???Housing:?Housing?The client's current living situation is:?stable housing ???Reproductive Life Plan:?Reproductive Life Plan?Do you want to have children??No, I don't want to have children ?How sure are you that you will be able to use your control method without any problems??Sure ?People's plans change. Is it possible you or your partner could ever decide to become ??No ???Sexual History:?Sexual History?Sexual History Reviewed:?Partners, Practices, Protection/Past STIs, Prevention of ?Currently sexually active??No ?When you are sexually active, who are your partners??Women ?What is the client's primary method to prevent at the end of their visit??Abstinence ???HIV Risk Assessment:?Additional Questions?Is an HIV Risk Assessment being conducted??No ???PrEP for HIV:?PrEP for HIV?Is the client interested in beginning/continuing PrEP for HIV??No ???Relationships:?Relationships?Has the client experienced any of the following:?Reproductive Coercion, Harmful Relationships, Sexual Coercion, Exchanged Sex for. . . Clt stated it was when they were younger per clt they have a therapist ???Human Trafficking:?Human Trafficking?Experienced:?No ???Tobacco Use:?Tobacco Use?Do you/have you used tobacco??No ?Tobacco Smoking Status?Never smoker ???Drugs/Alcohol:?Drug/Alcohol Use?Do you or have you used drugs??No ?Do you or have you used alcohol??Yes, currently occasional use ???Counseling Provided:?Counseling Provided?Please indicate the length of time, in minutes, that counseling was provided.?5 ?Counseling Was Provided By:?isabell * Medications:?TakingTopiramat e , Notes to Pharmacist: 25mgAllegra SUMAtriptan Magnesium Advair HFA Escitalopram Oxalate 10 MG Tablet 1 tablet Orally Once a day Vitamin D busPIRone HCl 10 MG Tablet 1 tablet Orally Twice a day Baclofen Amitriptyline HCl Albuterol Medication List reviewed and reconciled with the patientTaking Topiramate , Notes to Pharmacist: 25mgTaking Shea Taking SUMAtriptan Taking Magnesium Taking Advair HFA Taking Escitalopram Oxalate 10 MG Tablet 1 tablet Orally Once a day Taking Vitamin D Taking busPIRone HCl 10 MG Tablet 1 tablet Orally Twice a day Taking Baclofen Taking Amitriptyline HCl Taking Albuterol Medication List reviewed and reconciled with the patient * Allergies:?MoldPollenCat Noe derBlessing MitesRodentsno[Allergies Verified] Objective: * Vitals:? * ???Past Orders: ???Lab:Hemoglobin [id number] (Order Date - 12/12/2024) (Collection Date & Time - 12/22/2024 10:22 AM) ?Result: 5.5%, Normal ? Value Reference Range ?Hemoglobin A1c 5.5 4.8-5 .6 - % ???Lab:[id number] (Order Joshua e - 12/12/2024) (Collection Date & Time - 12/22/2024 10:22 AM) ?Result: 9.2 Normal ? Value Reference Range ?FSH 9.2 - mIU/mL ???Lab:[id number] (Ord er Date - 12/12/2024) (Collection Date & Time - 12/22/2024 10:22 AM) ?Result: 9.2 Normal ? Value Reference Range ?Prolactin 9.2 4.8-33.4 - ng/mL ???Lab:Estradiol-[id number] (Ord er Date - 12/12/2024) (Collection Date & Time - 12/22/2024 10:22 AM) ?Result: 27.2 Normal ? Value Reference Range ?Estradiol 27.7 - pg/mL ???Lab:TSH reflex to [id number] (Order Date - 12/12/2024) (Collection Date & Time - 12/22/2024 10:22 AM) ?Result: 1.31 Normal ? Value Reference Range ?TSH 1.310 0.450-4.500 - u IU/mL * Examination: ???General Examination: ?GENERAL APPEARANCE:?in no acute distress.?NEUROLOGIC:? alert and oriented.?Clt prefers to defer a pelvic exam today. Assessment: * Assessment: 1.?Vaginitis, Acute - N76.0 (Primary)???2.?Encounter for screening for other infectious and parasitic diseases - Z11.8???3.?Counseling, unspecified - Z71.9???4.?Encounter for screening for infections with a predominantly sexual mode of transmission - Z11.3???5.?Other problems related to lifestyle - Z72.89??? Need 2 out of 3 Sections fro m A-C Section A) Problems (only need one from below) Section B) Data (need at least one of the following categories in this section) Category 1: (Choose three of the following): Review test results (each unique test counts as one) Order Unique tests Section C) Risk (any one of the following) Prescription drug management (this counts for the whole section) Plan: * Treatment: ? Value Reference Range ?Clue Cells neg * ?WBC few * ?Hyphae few buds * ?Trichomonas neg * ?pH 5 * ?MAGNUS Prep neg whiff Notes: Reviewed small amount of yeast findings on [...] do vaginal cream- clt in agreement with plan??2.?Encounter for screening for other infectious and parasitic diseases?LAB: NuSwab VG+, Jossy [id number] (Collection Date & Time - 01/09/2025 11:19 AM)3.?Counseling, unspecified? Notes: Cycle length is 25 days, lasting 3-4 days with significant less blood flow than what clt is used to is still in the normal range. Lab work all WNL. Reviewed that a number of factors can affectsomeone's cycle such as age, stress, medications, weight changes. Clt is on Topiramate which is known to have reported cycle changes with use. Recommend clt to continue to monitor cycles- I want to know if no cycles are occuring or the are occuring shorter than 21 days. Reviewed that we can experience perimenopause symptoms upto 10 years prior to going through menses-can't confirm if that is what clt is experiencing currently. Clt brought up the desire for hysterectomy- reviewed clt needs to explore what their goals are. Is it for sterilization, menses suppression, gender affirmation? If it's mainly for menses suppression there are medical options for that- cltexpressed hx of PTSD around hormonal BC methods. Reviewed that clt can always schedule a consult with [facility] for hysterectomy but to be aware that in order to have insurance coverage usually need medical reason or for GAHT. Advised clt to RTC if they would like to further explore medical options for menses suppression ?4.?Encounter for screening for infections with a predominantly sexual mode of transmission? Notes: Discussed STI risks, screenings that are available through [facility] and safe sex. Clt aware of lab processing times and how to view results on portal and how positive results will be communicated ?? * Procedure Codes:?53111 Wet M ount * Follow Up:?prn * Billing Information: * Visit Code:? 74288 Existing - Medium Complexity (IN USE). * Procedure Codes:? 63920 Wet Mount. * Sign off status: Completed true * Provider:GIULIA CARBALLO Date:?01/09/2025 Generated for Amadou galarza/Steven/Hildaitting on:?01/12/2025 01:11 PM EDT History and Physical Notes * HPI (History of Present Illness) Category Sub-Category Detail Notes Category Not es Visit Narrative Current form of control: abstine nt Presenting Symptoms: no current symptoms , menses concerns Other Notes for the Clinician: Clt state s they received a period 12/20. Characteristics: 3 days, light blood loss to spotting LMP: 12/20/2024 Examination Category Sub-Category Detail Notes Category Not es General Examination GENERAL APPEARANCE: in no acute di stress Clt prefers to defer a pelvic exam today NEUROLOGIC: alert and oriented
--- OUTSIDE RECORDS SUMMARY | 2025-01-12 13:11 | XMS_ITS | Clinical Summary ---
Author Organization 175 [facility] Address [address] [place] [address] Phone Care Team Providers Care Power Barker Name Role Phone Malika Moore MD Primary Care Provider [phone] Allergies Active Allergy Reactions Criticality Noted Date Comments Cat Dander 12/13/2024 Pollen Extracts 10/03/2024 Many environmental allergies Medications busPIRone (BUSPAR) 10 mg tablet Take 1 tablet (10 mg total) by mouth. Active cholecalciferol (VITAMIN D-3) 50 mcg (2,000 unit) capsule Take 1 capsule (2,000 Units total) by mouth 1 (one) time each day. for 90 days 4 Active escitalopram (LEXAPRO) 10 mg tablet Take 1 tablet (10 mg total) by mouth. Active Advair HFA 115-21 mcg/actuation inhaler Inhale 2 puffs by mouth 2 (two) times a day. 4 Active magnesium oxide (MAG-OX) 400 mg (241.3 elemental magnesium) tablet Take 1 tablet (400 mg total) by mouth at bedtime. 4 Active SUMAtriptan (IMITREX) 50 mg tablet 1 TAB AT ONSET OF HEADACHE MAY REPEAT ONCE AFTER AT LEAST 2 HOUR IF NO RELIEF-MAX PER 24 HOUR: 4 TAB 4 Active baclofen (LIORESAL) 10 mg tablet Take 1 tablet (10 mg total) by mouth. at bedtime. 4 Active amitriptyline (ELAVIL) 25 mg tablet Take by mouth at bedtime. Active ibuprofen (ADVIL,MOTRIN) 400 mg tablet Take 1 tablet (400 mg total) by mouth every 6 (six) hours if needed for mild pain for up to 7 days. 28 tablet 12/22/19 25 Active Problems Problem Noted Date Diagnosed Date Numbness and tingling in left hand 10/04/2024 Chronic pain of right wrist 10/04/2024 Vertebrobasilar migraine 10/03/2024 Left carpal tunnel syndrome 06/20/2022 Right carpal tunnel syndrome 06/20/2022 Encounters Date Type Department Care Team Description 12/14/2024 3:17 AM EDT - 12/14/2024 7:27 AM EDT Emergency [facility] Emergency [address] [place] [address] Abdominal wall pain in epigastric region (Primary Dx) Discharge Disposition: Home or Self Care 10/14/2024 3:26 PM EST - 10/14/2024 11:59 PM EST Hospital Encounter [facility] [address] [place] [address] Numbness and tingling in left hand Discharge Disposition: Home or Self Care from Last 3 Months Surgical History Surgery Date Site/Laterality Comments CARPAL TUNNEL RELEASE 06/17/2022 - 07/17/2022 Left CARPAL TUNNEL RELEASE 11/24/2022 Right Medical History Medical History Date Comments Anxiety state DX:Anxiety state Asthma Social History Tobacco Use Types Packs/Day Years Used Date Smoking Tobacco: Never Smokeless Tobacco: Never Alcohol Use Standard Drinks/Week Comments Never 0 (1 standard drink = 0.6 oz pur e alcohol) Comments No Sex and Gender Information Value Date Recorded Sex Assigned at Female 10/14/2024 3:20 PM EST Legal Sex Female 6:33 PM EST Gender Identity Female 09/26/2024 1:03 PM EST Sexual Orientation Lesbian or Clancy 09/26/2024 1: 03 PM EST Obstetrics History Last Filed Vital Signs Vital Sign Reading Time Taken Comments Blood Pressure 113/68 12/14/2024 6:46 AM EDT Pulse 71 12/14/2024 6:46 AM EDT Temperature 37.1 ??C (98.7 ??F) 12/14/2024 6:46 AM ED T Respiratory Rate 16 12/14/2024 6:46 AM EDT Oxygen Saturation 98% 12/14/2024 6:46 AM EDT Inhaled Oxygen Concentration - - Weight 83 kg (183 lb) 12/13/2024 10:59 PM EDT Height 157.5 cm (5' 2 ) 12/13/2024 10:59 PM EDT Body Mass Index 33.47 12/13/2024 10:59 PM EDT Plan of Treatment Health Maintenance Due Date Last Done Comments Cervical Cancer Screening: P ap Smear 02/20/2009 Depression Screening 08/27/2022 HIV Screening 08/27/2022 Hepatitis C Screening 08/27/2022 Social Influencers of Health Screening 08/27/2022 COVID-19 Vaccine ( - 2023-2 5 season) 2024 Hepatitis B Vaccines (2 of 2 - CpG 2-dose series) 05/18/2024 04/20/2024 Influenza Vaccine (Season Ended) 2025 DTaP,Tdap,and Td Vaccines (2 - Td or Tdap) 10/20/2034 10/20/2024 Pneumococcal Vaccine: Pediat rics (0 to 5 Years) and At-Risk Patients (6 to 64 Years) Aged Out 04/20/2024 No longer eligi ble based on patient's age to complete this topic HIB Vaccines Aged Out No longer eligi [...] patient's age to complete this topic Meningococcal B Vaccine Aged Out No l onger eligible based on patient's age to complete this topic RSV Immunization Patients Un ryder 20 months Aged Out No longer eligible b ased on patient's age to complete this topic Varicella Vaccines Aged Out No longer eligible based on patient's age to complete this topic Procedures Procedure Name Priority Date/Time Associated Diagnosis Comments US ABDOMEN LIMITED STAT 12/14/2024 6: 39 AM EDT XR CHEST 2 VIEWS STAT 12/14/2024 1:57 AM EDT POC , URINE DIAGNOSTIC STAT 12/14/2024 1:07 AM EDT CBC WITH AUTO DIFFERENTIAL STAT 12/13/2024 11:27 PM EDT LIPASE STAT 12/13/2024 11:27 PM EDT COMPREHENSIVE METABOLIC PANEL STAT 12/13/2024 11:27 PM EDT CBC AND DIFFERENTIAL STAT 12/13/2024 11:27 PM EDT EMG 2 LIMBS Routine 10/14/2024 3:53 PM EST Numbness and tingling in left hand from Last 3 Months Results * US Abdomen Limited (12/14/2024 6:39 AM EDT) Anatomical Region Laterality Modality Body Ultrasound 12/14/2024 6:50 AM EDT Impressions 12/14/2024 6:50 AM EDT Unremarkable limited abdominal ultrasound. This document has been electronically signed by: Eduardo Ramirez MD on 12/14/2024 06:50:07 Narrative 12/14/2024 6:50 AM EDT INDICATION: upper abdominal pain x 1 month US abdomen limited Comparison: None Findings: The visualized pancreas is normal. The aorta and inferior vena cava are normal caliber. The liver is normal in size and echotexture. There is no intrahepatic bile duct dilatation. The common duct is 3 mm in diameter. The gallbladder is normal. There is no sonographic Eli sign. The main portal vein is antegrade. The right kidney is 10 cm in length. No ascites. Procedure Note Eduardo Ramirez MD - 12/14/2024 INDICATION: upper abdominal pain x 1 month US abdomen limited Comparison: None Findings: The visualized pancreas is normal. The aorta and inferior vena cava are normal caliber. The liver is normal in size and echotexture. There is no intrahepatic bile duct dilatation. The common duct is 3 mm in diameter. The gallbladder is normal. There is no sonographic Eli sign. The main portal vein is antegrade. The right kidney is 10 cm in length. No ascites. IMPRESSION: Unremarkable limited abdominal ultrasound. This document has been electronically signed by: Eduardo Ramirez MD on 12/14/2024 06:50:07 us Karoline VINCENT IMG US PROCEDURES Final Resul t * XR Chest 2 Views (12/14/2024 1:57 AM EDT) Anatomical Region Laterality Modality Body Radiographic Ketty ging 12/14/2024 9:47 AM EDT Impressions 12/14/2024 9:49 AM EDT Normal examination. The lungs are clear and there is no subdiaphragmatic free air. Code 16341 -------- FINAL REPORT -------- Dictated By: Alexi Johnson Dictated Date: 12/14/2024 09:47 ET Assigned Physician: Alexi Johnson Reviewed and Electronically Signed By: Alexi Johnson Signed Date: 12/14/2024 09:49 ET Workstation ID: [id number] Transcribed By: Self Edit Transcribed Date: 12/14/2024 09:47 ET Narrative 12/14/2024 9:49 AM EDT HISTORY: The patient is a 34-year-old female with upper abdominal pain. FINDINGS: PA and lateral radiographs of the chest demonstrate normal appearance of the bony structures. The cardiac and mediastinal contours are within normal limits. The lungs and costophrenic angles are clear. There is no subdiaphragmatic free air. Procedure Note Alexi Johnson MD - 12/14/2024 HISTORY: The patient is a 34-year-old female with upper abdominal pain. FINDINGS: PA and lateral radiographs of the chest demonstrate normalappearance of the bony structures. The cardiac and mediastinal contoursare within normal limits. The lungs and costophrenic angles are clear.There is no subdiaphragmatic free air. IMPRESSION: Normal examination. The lungs are clear and there is no subdiaphragmaticfree air. Code 26434 -------- FINAL REPORT -------- Dictated By: Alexi Johnson Dictated Date: 12/14/2024 09:47 ET Assigned Physician: Alexi Johnson Reviewed and Electronically Signed By: Alexi Johnson Signed Date: 12/14/2024 09:49 ET Workstation ID: [id number] Transcribed By: Self Edit Transcribed Date: 12/14/2024 09:47 ET Maxwell Navarrete MD IMG XR PROCEDURES Final Result * POC , urine manually resulted (12/14/2024 1:07 AM EDT) HCG, Ur POC Negative Negative POC hCG Int QC Pass? Yes Yes Urine Urine specimen obtained by clean catch procedure / Unknown 12/14/2024 1:07 AM EDT Maxwell Navarrete MD POINT OF CARE TEST ENTER/EDIT ORDERABLES Final Result * (ABNORMAL) CBC auto differential (12/13/2024 11:27 PM EDT) Pathologist [facility] WBC 11.2(H) 4.8 - 10.8 K/mcL LAB HEMETOLOGY METHOD 12/14/2024 12:10 AM EDT [facility] RBC 4.30 3.80 - 4.80 M/mcL LAB HEMETOLOGY METHOD 12/14/2024 12:10 AM EDT [facility] Hemoglobin 12.7 11.5 - 16.0 g/dL LAB HEMETOLOGY METHOD 12/14/2024 12:10 AM EDT [facility] Hematocrit 37.4 35.0 - 47.0 % LAB HEMETOLOGY METHOD 12/14/2024 12:10 AM [facility] MCV 87.4 79.0 - 98.0 FL LAB HEMETOLOGY METHOD 12/14/2024 12:10 AM [facility] MCH 29.7 27.0 - 32.0 pcg LAB HEMETOLOGY METHOD 12/14/2024 12:10 AM [facility] MCHC 34.0 32.0 - 37.0 g/dL LAB HEMETOLOGY METHOD 12/14/2024 12:10 AM [facility] RDW 12.6 11.0 - 15.0 % LAB HEMETOLOGY METHOD 12/14/2024 12:10 AM [facility] Platelets 307 130 - 400 K/mcL LAB HEMETOLOGY METHOD 12/14/2024 12:10 AM [facility] MPV 10.8 7.0 - 11.0 FL LAB HEMETOLOGY METHOD 12/14/2024 12:10 AM [facility] NRBC 0.0 <1.0 % LAB HEMETOLOGY METHOD 12/14/2024 12:10 AM [facility] NRBC Absolute 0.00 <0.10 K/mcL LAB HEMETOLOGY METHOD 12/14/2024 12:10 AM [facility] Neutrophils Relative 58.0 % LAB HEMETOLOGY METHOD 12/14/2024 12:10 AM [facility] Lymphocytes Relative 33.4 % LAB HEMETOLOGY METHOD 12/14/2024 12:10 AM [facility] Monocytes Relative 6.4 % LAB HEMETOLOGY METHOD 12/14/2024 12:10 AM [facility] Eosinophils Relative 0.7 % LAB HEMETOLOGY METHOD 12/14/2024 12:10 AM [facility] Basophils Relative 0.5 % LAB HEMETOLOGY METHOD 12/14/2024 12:10 AM [facility] Immature Granulocytes Relative 1.0 % LAB HEMETOLOGY METHOD 12/14/2024 12:10 AM [facility] Neutrophils Absolute 6.49 1.50 - 7.00 K/mcL LAB HEMETOLOGY METHOD 12/14/2024 12:10 AM EDT [facility] Lymphocytes Absolute 3.74 1.00 - 5.00 K/[facility] LAB HEMETOLOGY METHOD 12/14/2024 12:10 AM EDT [facility] Monocytes Absolute 0.72 0.20 - 1.00 K/[facility] LAB HEMETOLOGY METHOD 12/14/2024 12:10 AM EDT [facility] Eosinophils Absolute 0.08 0.00 - 0.50 K/[facility] LAB HEMETOLOGY METHOD 12/14/2024 12:10 AM EDT [facility] Basophils Absolute 0.06 0.00 - 0.20 K/[facility] LAB HEMETOLOGY METHOD 12/14/2024 12:10 AM EDT [facility] Immature Granulocytes Absolute 0.11(H) 0.00 - 0.03 K/[facility] LAB HEMETOLOGY METHOD 12/14/2024 12:10 AM EDT [facility] Blood Venous blood specimen / Unknown Venipuncture / Unknown 12/13/2024 11:27 PM EDT 12/14/2024 12:01 AM EDT us Sam Sawyer MD LAB BLOOD ORDERABLES Final Resu lt [facility] [address] [place] [address], * Lipase (12/13/2024 11:27 PM EDT) Lipase 15 13 - 75 unit/L LAB CHEMISTRY METHOD 12/14/2024 12:36 AM EDT [facility] Blood Venous blood specimen / Unknown Venipuncture / Unknown 12/13/2024 11:27 PM EDT 12/14/2024 12:01 AM EDT us Karoline VINCENT LAB BLOOD ORDERABLES Final Re sult [facility] [address] [place] [address], * (ABNORMAL) Comprehensive metabolic panel (12/13/2024 11:27 PM EDT) Sodium 141 133 - 145 mmol/L LAB CHEMISTRY METHOD 12/14/2024 12:36 AM [facility] Potassium 4.0 3.5 - 5.5 mmol/L LAB CHEMISTRY METHOD 12/14/2024 12:36 AM [facility] Chloride 109 96 - 110 mmol/L LAB CHEMISTRY METHOD 12/14/2024 12:36 AM [facility] CO2 25 21 - 32 mmol/L LAB CHEMISTRY METHOD 12/14/2024 12:36 AM [facility] Anion Gap 7 3 - 11 LAB CHEMISTRY METHOD 12/14/2024 12:36 AM [facility] Glucose 112(H) 70 - 100 mg/dL LAB CHEMISTRY METHOD 12/14/2024 12:36 AM [facility] BUN 10 5 - 25 mg/dL LAB CHEMISTRY METHOD 12/14/2024 12:36 AM [facility] Creatinine 0.82 0.50 - 1.10 mg/dL LAB CHEMISTRY METHOD 12/14/2024 12:36 AM [facility] eGFR 95 >=60 mL/min/1. 73m2 LAB CHEMISTRY METHOD 12/14/2024 12:36 AM [facility] Comment:Calculation based on the??Chronic Kidney Disease Epidemiology Collaboration (CKD-EPI) equation refit??without adjustment for race. BUN/Creatinine Ratio 12.2 LAB CHEMISTRY METHOD 12/14/2024 12:36 AM [facility] Calcium 9.8 8.5 - 10.5 mg/dL LAB CHEMISTRY METHOD 12/14/2024 12:36 AM [facility] AST (SGOT) 21 10 - 42 unit/L LAB CHEMISTRY METHOD 12/14/2024 12:36 AM EDT [facility] ALT (SGPT) 21 10 - 60 unit/L LAB CHEMISTRY METHOD 12/14/2024 12:36 AM EDT [facility] Alkaline Phosphatase 102 42 - 121 unit/L LAB CHEMISTRY METHOD 12/14/2024 12:36 AM EDT [facility] Total Protein 7.5 6.0 - 8.0 g/dL LAB CHEMISTRY METHOD 12/14/2024 12:36 AM EDT [facility] Albumin 4.3 3.2 - 5.0 g/dL LAB CHEMISTRY METHOD 12/14/2024 12:36 AM EDT [facility] Total Bilirubin 0.3 0.0 - 1.4 mg/dL LAB CHEMISTRY METHOD 12/14/2024 12:36 AM EDT [facility] Blood Venous blood specimen / Unknown Venipuncture / Unknown 12/13/2024 11:27 PM EDT 12/14/2024 12:01 AM EDT Karoline VINCENT LAB BLOOD ORDERABLES Final Re sult [facility] [address] [place] [address], * EMG two limbs (10/14/2024 3:53 PM EST) Narrative Jordan Rodriguez MD - 10/14/2024 4:43 PM EST Please see the attached report. Verena Kerr MD NEUROLOGY ORDERABLES Final Re sult from Last 3 Months Insurance [facility] Care Teams Power Barker Relationship Specialty Start Date End Date Malika Moore MD 2 [facility] , [address] [place] [address] Physician Associ D/B/A: [facility] DARYL Veronica PCP - General Internal Medicine 01/20/22
--- OUTSIDE RECORDS SUMMARY | 2025-01-12 13:11 | XMS_ITS ---
Author Organization [facility] Address [address] [id number] Care Team Providers Care Mill Controller Name Role Phone KAIT, HARSHIL Unavailable [phone] REASON FOR VISIT Pap records Social History Sex Assigned At : Social History Observation Description Sex Assigned At Female Encounters Encounter Location Date Provider Diagnosis [address] [place], [place] [id number] 12/17/2024 HARSHIL CARBALLO Plan Of Treatment No Information Progress Notes * Daniel CARDOB:1990 ([age] yo F)Acc No.[id number]:12/17/2024 Patient:?Daniel CAR :1990???Age:34 Y???Sex:Female Address:[place], [address] Subjective: * Chief Complaints: * ???Pap records * Medical History:? * Juice Scaleman History:? control:?none.?Last menstrual period:?11/29.?Last pap smear date:?04/2023 NIL, HPV neg.?Menarche: ?Age of menarche?9 ???Periods:?every 20-25 days, normal blood loss.?Sexual activity:?not currently sexually active, with women.?Sexually Transmitted Diseases (STDs):?none.?Unprotected sex in the last 5 days?:?no.?Unprotected sex in the past 10 days?:?no.? * OB History:?Total pregnancies:?0.? * Surgical History:? * Hospitalization/Major Diagno stic Procedure:? * Medications:? Objective: * Vitals:? * Physical Examination:? Assessment: Plan: * Treatment: * Procedure Codes:? * true * Date:? Generated for Amadou galarza/Steven/Heidi on:?01/12/2025 01:10 PM EDT
== END 2025-01-12 11:38 | disposition home or self-care (01) ==
LOC: HO.HGI 10:57
PROVIDERS: PCP Internal Medicine; Visit Provider Internal Medicine
DX: R10.9 Unspecified abdominal pain (principal); R19.4 Change in bowel habit; R11.0 Nausea
CPT/HCPCS: 99204

== ENCOUNTER 2025-04-21 08:42 | Outpatient (REF) | payer OTHER, SELFPAY ==
--- NOTE | ~2025-04-21 | FL_ITS ---
EXAMINATION: XR FLUOROSCOPY UPPER GI SERIES CLINICAL INFORMATION: Unspecified abdominal pain and bloating. COMPARISON: None TECHNIQUE: Fluoroscopic air contrast upper GI examination was performed utilizing standard techniques with thin and thick barium and effervescent granules. Numerous spot images were obtained. Several fluoroscopic image hold cine sequences were also obtained. FINDINGS: UPPER GI SERIES: Lateral cine images of the oropharynx and hypopharynx demonstrate normal swallow mechanism with normal epiglottic inversion and soft palate elevation. No laryngeal penetration, glottic or subglottic aspiration identified. No nasopharyngeal reflux present. Hypopharyngeal structures appear normal without evidence of mass or diverticulum. There was no significant cricopharyngeal achalasia. Dual and single contrast images of the esophagus demonstrate normal caliber, contour, and mucosal pattern. No evidence of stricture, mass, or ulcerations identified. Esophageal peristalsis was normal. No evidence of hiatus hernia identified. No significant gastroesophageal reflux was seen during the course of the examination and on reflux views. Dual contrast and single contrast images of the stomach demonstrated normal contour and mucosal pattern without evidence of mass, ulceration, or other abnormality. Notable delay of contrast passage into the duodenal bulb and duodenum. Duodenal sweep has a normal course. FLUOROSCOPY TIME: 3 minutes Number of Spot Images:8 Number of cines obtained: 8 DOSE AREA PRODUCT: 2809 uGy-m2 (microgray-meter squared) FL/FL upper GI series IMPRESSION: 1. Notable delay of contrast passage from the stomach into the duodenum. This finding is nonspecific but could indicate gastroparesis. 2. Otherwise, normal upper GI series. Electronically signed by: Bartolome Wagoner MD 04/21/2025 09:40 AM EDT
--- OUTSIDE RECORDS SUMMARY | 2025-04-21 08:54 | XMS_ITS | Patient Health Record ---
Author Organization [facility] Address [address] [place] [phone] Care Team Providers Care Catering Associate Name Role Phone HARSHIL CARBALLO Unavailable [phone] Allergies Allergen (clinical drug ingredient) Drug/Non Drug Allergy documented on EMR Reaction Allergy Type Onset Date Status Cat dander Cat Dander Unknown Allergy Active Dust Mites Unknown Allergy Active Mold Unknown Allergy Active Pollen Pollen Unknown Allergy Active Rodents Unknown Allergy Active Results Component Value Reference Range Notes Hemoglobin [id number] Reviewed date:12/29/2024 11:53:02 AM Interpretation:5.5%, Normal Performing Lab:[facility] Jason, [address] [facility], Phone - [phone], Director - MDJodry Notes/Report: Hemoglobin A1c 5.5 4.8-5.6 % . Prediabetes: 5.7 - 6.4 Diabetes: >6.4 Glycemic control for adults with diabetes: <7.0 [id number] Reviewed date:12/29/2024 11:54:28 AM Interpretation:9.2 Normal Performing Lab:[facility] Jason, [address] [facility], Phone - [phone], Director - MDJodry Notes/Report: FSH 9.2 Adult Female Range Follicular phase 3.5 - 12.5 Ovulation phase 4.7 - 21.5 Luteal phase 1.7 - 7.7 Postmenopausal 25.8 - 134.8 [id number] Reviewed date:12/29/2024 11:54:52 AM Interpretation:9.2 Normal Performing Lab:[facility] Jason, [address] [facility], Phone - [phone], Director - MDJodry Notes/Report: Prolactin 9.2 4.8-33.4 ng/mL Estradiol-[id number] Reviewed date:12/29/2024 11:54:06 AM Interpretation:27.2 Normal Performing [facility], [address] [facility], Phone - [phone], Director - Jacob Notes/Report: Estradiol 27.7 Adult Female Range Follicular phase 12.5 - 166.0 Ovulation phase 85.8 - 498.0 Luteal phase 43.8 - 211.0 Postmenopausal <6.0 - 54.7 1st trimester 215.0 - >4300.0 Zac ECLIA methodology TSH reflex to [id number] Reviewed date:12/29/2024 11:53:19 AM Interpretation:1.31 Normal Performing Lab:[facility], [facility] [place], Phone - [phone], Director - Jacob Notes/Report: TSH 1.310 0.450-4.500 uIU/mL Wet Mount Reviewed date:01/09/2025 11:38:26 AM Interpretation:Few yeast buds, pH 5 Performing Lab: Notes/Report: Few yeast buds, pH 5 Clue Cells neg WBC few Hyphae few buds Trichomonas neg pH 5 MAGNUS Prep neg whiff NuSwab VG+, Jossy 6sp-1800 68 Reviewed date:01/14/2025 09:42:42 AM Interpretation:Negative Performing Lab:[facility], [address] [facility], [place], Phone - [phone], Director - Jacob Notes/Report: and Drug Administration. by [employer] It has not been cleared or approved by the Food was developed and its performance characteristics determined 715586-Kiayaoe krusei, NATACHA 533599-G parapsilosis/tropicalis; 471356-Pzzbeab lusitaniae, NATACHA; Test(s) 034679-Joiztxp albicans, NATACHA; 505424-Tihgizn glabrata, NATACHA; and Drug Administration. by [employer] It has not been cleared or approved by the Food was developed and its performance characteristics determined Megasphaera 1 Test(s) 615860- Atopobium vaginae; 149343- BVAB 2; 417763- Atopobium vaginae Low - 0 BVAB 2 Low - 0 Megasphaera 1 Low - 0 Calculate total score by adding the 3 individual bacterial vaginosis (BV) marker scores together. Total score is interpreted as follows: Total score 0-1: Indicates the absence of BV. Total score 2: Indeterminate for BV. Additional clinical data should be evaluated to establish a diagnosis. Total score 3-6: Indicates the presence of BV. Jossy albicans, NATACHA Negative Negative Jossy glabrata, NATACHA Negative Negative C parapsilosis/tropicalis Negative Negative Th is assay does not differentiate C. tropicalis and C. parapsilosis. Jossy lusitaniae, NATACHA Negative Negative Jossy krusei, NATACHA Negative Negative Trich vag by NATACHA Negative Negative Chlamydia trachomatis, NATACHA Negative Negative Neisseria gonorrhoeae, NATACHA Negative Negative Reason For Referral No Information Medications Medication SIG (Take, Route, Frequency, Duration) Notes Start Date End Date Status Shea Active SUMAtriptan Active Magnesium Active Advair HFA Active Fluconazole 150 MG 1 tablet Orally One tablet stat; Duration: 1 days 01/09/2025 Active Escitalopram Oxalate 10 [...] Status W/U Status Risk Notes Problem Irregular menstruation, unspecified (N92.6) Active confirmed Vital Signs Blood pressure diastolic 82 mm Hg 12/12/2024 Height 5'2 in 12/12/2024 Blood pressure systolic 118 mm Hg 12/12/2024 Weight 186 lbs 12/12/2024 BMI 34.02 kg/m2 12/12/2024 Encounters Encounter Location Date Provider Diagnosis [address] [id number] 12/12/2024 HARSHIL CARBALLO Counseling, unspec ified Z71.9 ; Irregular menstruation, unspecified N92.6 and Encounter for screening for diabetes mellitus Z13.[address] [id number] 01/09/2025 HARSHIL CARBALLO Vaginitis, Acute N 76.0 ; Encounter for screening for other infectious and parasitic diseases Z11.8 ; Counseling, unspecified Z71.9 ; Encounter for screening for infections with a predominantly sexual mode of transmission Z11.3 and Other problems related to lifestyle Z72.[address] [id number] 12/17/2024 HARSHIL CARBALLO [facility] [address] [facility] [place] [id number] 12/29/2024 HARSHIL CARBALLO Assessments Encounter Date Diagnosis (ICD Code) Assessment Notes Treatment Notes Treatment Clinical Notes Section Notes 12/12/2024 Irregular menstruation, unspecified (ICD-10 - N92.6) Reviewed concerns for changes in cycles and hot flashes. Reviewed last few cycles in clt's cycle lucas. Cycle length is 25 days [...] clt can always schedule a consult with [facility] for hysterectomy but to be aware that [...] for the whole section) Plan Of Treatment Next Appt Details Provider Name:HARSHIL KAIT, 09:00:00 AM, [address] [place] [address], [phone], Insurance Providers Payer Name Payer Address Payer Phone Subscriber Number Group Number Insured Name Patient Relationship to Insured Coverage Start Date Coverage End Date [place] CLAIMS [address] [place] [id number] Daniel Sung Self - patient is the insured Medical (General) History Medical History History ICD Code Asthma Seizures Weight concerns Migraines, head pressure Fibromyalgia Vertigo Stomach problems
--- OUTSIDE RECORDS SUMMARY | 2025-04-21 08:54 | XMS_ITS | Clinical Summary ---
Author Organization [address] [facility] Address [address] [place] [address] Phone Care Team Providers Care Database Programmer Analyst Name Role Phone Malika Moore MD Primary Care Provider [phone] Allergies Active Allergy Reactions Criticality Noted Date [...] syndrome 06/20/2022 Right carpal tunnel syndrome 06/20/2022 Surgical History Surgery Date Site/Laterality Comments CARPAL [...] 71 12/14/2024 6:46 AM EDT Temperature 37.1 C (98.7 F) 12/14/2024 6:46 AM EDT Respiratory Rate 16 12/14/2024 6:46 AM EDT Oxygen Saturation 98% 12/14/2024 6:46 AM EDT Inhaled Oxygen Concentration - - Weight 83 kg (183 lb) 12/13/2024 10:59 PM EDT Height 157.5 cm (5' 2 ) 12/13/2024 10:59 PM EDT Body Mass Index 33.47 12/13/2024 10:59 PM EDT Plan of Treatment Health Maintenance Due Date Last Done Comments Cervical Cancer Screening: P ap Smear 02/20/2009 HIV Screening 08/27/2022 Hepatitis C Screening 08/27/2022 Social Influencers of Health Screening 08/27/2022 COVID-19 Vaccine (1 - 2023-2 5 season) 2024 Hepatitis B Vaccines (2 of 2 - CpG 2-dose series) 05/18/2024 04/20/2024 Depression Screening 09/17/2024 Influenza Vaccine (#1) 2025 DTaP,Tdap,and Td Vaccines (2 - Td or Tdap) 10/20/2034 10/20/2024 Pneumococcal Vaccine: Pediat rics (0 to 5 Years) and At-Risk Patients (6 to 49 Years) Aged Out 04/20/2024 No longer eligi [...] on patient's age to complete this topic Insurance [facility] [employer] Care Teams Database Programmer Analyst Relationship Specialty Start Date End Date Malika Moore MD [address] [place] [address] , [address] [facility] D/B/A: [facility] DARYL Veronica PCP - General Internal Medicine 01/20/22
== END 2025-04-21 08:43 | disposition home or self-care (01) ==
LOC: HO.XRAY 08:42
PROVIDERS: PCP Internal Medicine; Visit Provider Internal Medicine
DX: R10.9 Unspecified abdominal pain (principal); R11.0 Nausea
CPT/HCPCS: 74240

== ENCOUNTER → 2025-04-21 08:44 | Outpatient (BNV) | payer OTHER, SELFPAY | PROVIDERS: PCP Internal Medicine; Visit Provider Radiology Diagnostic Radiology | DX: R10.9 Unspecified abdominal pain (principal) | CPT/HCPCS: 74246 ==

== ENCOUNTER → 2025-05-20 08:21 | Outpatient (REF) | payer OTHER, SELFPAY ==
--- NOTE | ~2025-05-20 | NM_ITS ---
EXAMINATION: NM RADIONUCLIDE SOLID FOOD GASTRIC EMPTYING 4-HOUR STUDY CLINICAL INFORMATION: R11.0 - Nausea COMPARISON: None TECHNIQUE: A standard meal consisting of 4 oz of Egg Beaters brand tagged with 0.95 microcuries Tc-99m Sulfur Colloid, 8 oz water and 2 slices of toast with jelly was administered orally to the patient. Images were obtained using a dual head gamma camera in the anterior and posterior projections over of the stomach immediately post ingestion and at hourly intervals up to 4 hours post ingestion. The anterior and posterior counts at each time interval were averaged using the geometric mean and expressed as percentage of the immediate post ingestion counts. FINDINGS: There is good visualization of activity in the stomach immediately post ingestion. As the study progresses, there is good clearance of activity from the stomach and visualization of progressively increasing small bowel activity. By the end of the study, there is almost no retention noted in the stomach. Retention in the stomach at each time interval was: 1 hour 91% (normal 37%-90%) 2 hours 63% (normal 30%-60%) 3 hours 21% 4 hours 5% (normal 0%-10%) NM/NM gastric emptying study IMPRESSION: Normal 4-hour solid food gastric emptying study. For solid meal, rapid gastric emptying is less than 30% at 60 minutes. Delayed gastric emptying criteria is more than 60% remaining at 120 minutes or more than 10% at 240 minutes. The 4-hour value is the best discriminator of a normal or abnormal result). Gastric emptying study grading per JNMT Consensus Recommendations in 2008 (https://tech.snmjournals.org/content/36/1/44) Grade 1 (mild retention): 11-20% at 4h Grade 2 (moderate retention): 21-35% at 4h Grade 3 (severe retention): 36-50% at 4h Grade 4 (very severe retention): >50% retention at 4h Electronically signed by: Gorge Marshall MD 05/20/2025 01:08 PM EDT
--- OUTSIDE RECORDS SUMMARY | 2025-05-20 08:45 | XMS_ITS | Clinical Summary ---
Author Organization 175 [facility] Address [address] [place] [address] Phone Care Team Providers Care Shipping Support Clerk Name Role Phone Malika Moore MD Primary Care Provider [phone] Allergies Active Allergy Reactions Criticality Noted Date [...] patient's age to complete this topic Insurance [facility] Care Teams Shipping Support Clerk Relationship Specialty Start Date End Date Malika Moore MD [address] [place] [address] , [address] [facility] D/B/A: [facility] DARYL Veronica PCP - General Internal Medicine 01/20/22
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
== END ==
LOC: HO.NUCMED 08:21
PROVIDERS: PCP Internal Medicine; Visit Provider Internal Medicine
DX: R10.84 Generalized abdominal pain (principal); R11.0 Nausea
CPT/HCPCS: 78264; A9541

== ENCOUNTER → 2025-05-20 08:23 | Outpatient (BNV) | payer OTHER, SELFPAY | PROVIDERS: PCP Internal Medicine; Visit Provider Radiology Diagnostic Radiology | DX: R11.0 Nausea (principal); R10.84 Generalized abdominal pain | CPT/HCPCS: 78264 ==

== ENCOUNTER 2025-06-01 14:06 | Outpatient (AMB) | payer OTHER, SELFPAY ==
--- NOTE | 2025-06-01 14:18 | MHC.OFFVIS ---
Vital Signs 06/01/25 14:20 Height 5 ft 6 in Weight 158 lb 11.725 oz BMI 25.6 BP 129/79 Blood Pressure Location Lt brachial Position Sitting Pulse 73 Intake Visit Reasons: f/u GI series Intake Note: Daniel presents in the office as a follow up GI series. CC: She states that she had the GI series but that came back normal - states she has a lot of gas that is extra. Allergies pine nut Allergy (Mild, Verified 06/01/25 14:21) Rash Seasonal Allergies Allergy (Mild, Verified 06/01/25 14:21) Runny Nose face paint Allergy (Intermediate, Uncoded 06/01/25 14:21) face breaks out epsom salt Adverse Reaction (Severe, Uncoded 06/01/25 14:21) nimbness from head to toe. HPI Comments Details: 34 y.o F with PMH of TMJ, fibromyalgia, depression, nonepileptic seizures who is here for R sided abd pain. Has had longstanding GI issues x 5-6 years. Prev GI was in [place] - moved to [place] before covid. Main issue is RUQ which feels like a rib popping or pulling sensation, RLQ pain as well epigastric pain which is sharp. Pain does not radiate anywhere. Sometimes also has difficulty breathing when pain is severe. Assoc with nausea, but no vomiting. BMs fluctuate between diarrhea and constipation. No fam hx of CRC in FDRs. 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 Does get occasional pet bites and scratches. Celiac serology negative 2020. Pt was also seen in [facility] for similar sx a few weeks ago and had prelim work up including US abd which was normal. 04/21/25: UGIS 1. Notable delay of contrast passage from the stomach into the duodenum. This finding is nonspecific but could indicate gastroparesis. 2. Otherwise, normal upper GI series. 05/20/25: GES Normal 4-hour solid food gastric emptying study. 06/01/25: Here for follow up. Reports persistent sx. Not taking any PPI. Has not taken fiber supplement yet. Labs and imaging reveiwed. Everything normal so far. Her main complaint is abd bloating and frequent belching. Bowels fluctuate between hard and soft, but has a BM daily. [facility] Medical History Snoring Hypersomnia Back pain Cervical spondylosis Neck pain Psychogenic nonepileptic seizure Chronic daily headache Chronic migraine with aura Right hand pain Left hand pain Physical exam Seizure-like activity Insomnia due to other mental disorder EMELY (generalized anxiety disorder) Mild major depression, single episode Abdominal pain Overweight (BMI 25.0-29.9) Hypovitaminosis D Surgical History History of esophagogastroduodenoscopy (EGD) History of carpal tunnel surgery Family History Father No problems noted. Mother HTN (hypertension) Diabetes Family/Other Medical history unknown Substance use disorder Family/Other Mental health disorder Social History Housing: Apartment Alcohol intake: current Alcohol intake frequency: holidays/special occasions only Patient Tobacco Use Status: Never used Tobacco e-Cigarette/Vaping Use: Never Used Second Hand Smoke Exposure: Yes service: No Current occupational status: unemployed Cognitive needs: No Hearing needs: No Vision needs: No Female Reproductive History Menstrual Age of Menarche: 9 Review of Systems Const All systems reviewed & are unremarkable except as noted in HPI and below Physical Exam Exam Exam: No apparent distress Nonicteric Abdomen soft, nondistended Alert and oriented x3, normal gait Vital Signs: Last Vital Signs Pulse 73 06/01/25 14:20 BP 129/79 06/01/25 14:20 BMI result Body Mass Index 25.6 Assessment & Plan Assessment & Plan (1) Abdominal pain: Code(s): R10.9 - Unspecified abdominal pain Category: Medical (2) Change in bowel habit: Code(s): R19.4 - Change in bowel habit Category: Medical (3) Nausea: Code(s): R11.0 - Nausea Category: Medical (4) Bloating: Code(s): R14.0 - Abdominal distension (gaseous) Category: Medical Plan Patient workup so far, IBD, delayed gastric emptying, celiac, GERD, combined immunodeficiency, thyroid abnormality ruled out. Will explore other differentials such as biliary dyskinesia, MCAS, SIBO. 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 Plan: -tryptase -HIDA scan -empiric famotidine -continue fiber supplementation Follow-up in 2 months Orders: Orders NM hepatobiliary w pharm 06/01/25 R10.84 - Generalized abdominal pain, R11.0 - Nausea Tryptase 06/01/25 Z88.9 - Allergy status to unspecified drugs, medicaments and biological substances Medications: New famotidine 20 mg PO DAILY 90 tabs 1RF 90 days Coding Level of Care Code Est Pt Level 4 (88995) Diagnoses Abdominal pain R10.9 Change in bowel habit R19.4 Nausea R11.0 Bloating R14.0
[2025-06-01 14:20] VITALS: BP 129/79; PULSE 73; BMI 25.6
--- OUTSIDE RECORDS SUMMARY | 2025-06-01 19:26 | XMS_ITS | Patient Health Record ---
Author Organization [facility] Address [address] [place] [id number] Care Team Providers Care Tone Artist Apprentice Name Role Phone HARSHIL CARBALLO Unavailable [phone] Allergies Allergen (clinical drug ingredient) Drug/Non Drug Allergy documented on EMR Reaction Allergy Type Onset Date Status Cat dander Cat Dander Unknown Allergy Active Dust Mites Unknown Allergy Active Mold Unknown Allergy Active Pollen Pollen Unknown Allergy Active Rodents Unknown Allergy Active Results Component Value Reference Range Notes NuSwab VG+, Jossy 6sp-1800 68 Reviewed date:01/14/2025 09:42:42 AM Interpretation:Negative Performing Lab:[facility] [place], [address] [place] [address], [place], Phone - [phone], Director - Jacob Notes/Report: and Drug Administration. by [facility]. It has not been cleared or approved by the Food was developed and its performance characteristics determined 836334-Fvgocgf krusei, NATACHA 154512-L parapsilosis/tropicalis; 042552-Nguolbr lusitaniae, NATACHA; Test(s) 932576-Wrbqjtb albicans, NATACHA; 056061-Juiqfmq glabrata, NATACHA; and Drug Administration. by [facility]. It has not been cleared or approved by the [place] was [employer] and its performance characteristics determined Megasphaera 1 Test(s) 828380- Atopobium vaginae; 415729- BVAB 2; 829296- Atopobium vaginae Low - 0 BVAB 2 [...] Negative Negative Neisseria gonorrhoeae, NATACHA Negative Negative Wet Mount Reviewed date:01/09/2025 11:38:26 AM Interpretation:Few yeast buds, pH 5 Performing Lab: Notes/Report: Few yeast buds, pH 5 Clue Cells neg WBC few Hyphae few buds Trichomonas neg pH 5 MAGNUS Prep neg whiff TSH reflex to [id number] Reviewed date:12/29/2024 11:53:19 AM Interpretation:1.31 Normal Performing Lab:[facility], Phone - [phone], Director - MDJodry Notes/Report: TSH 1.310 0.450-4.500 uIU/mL Estradiol-[id number] Reviewed date:12/29/2024 11:54:06 AM Interpretation:27.2 Normal Performing Lab:[facility] [address], Phone - [phone], Director - MDJodry Notes/Report: Estradiol 27.7 Adult Female Range Follicular phase 12.5 - 166.0 Ovulation phase 85.8 - 498.0 Luteal phase 43.8 - 211.0 Postmenopausal <6.0 - 54.7 1st trimester 215.0 - >4300.0 Zac ECLIA methodology Prolactin-[id number] Reviewed date:12/29/2024 11:54:52 AM Interpretation:9.2 Normal Performing Lab:[facility] [address], Phone - [phone], Director - MDJodry Notes/Report: Prolactin 9.2 4.8-33.4 ng/mL FSH-163624 Reviewed date:12/29/2024 11:54:28 AM Interpretation:9.2 Normal Performing Lab:[facility], Phone - [phone], Director - MDJodry Notes/Report: FSH 9.2 Adult Female Range Follicular phase 3.5 - 12.5 Ovulation phase 4.7 - 21.5 Luteal phase 1.7 - 7.7 Postmenopausal 25.8 - 134.8 Hemoglobin [id number]-[id number] Reviewed date:12/29/2024 11:53:02 AM Interpretation:5.5%, Normal Performing Lab:[facility] [place], [address], [place], Phone - [phone], Director - Jacob Notes/Report: Hemoglobin A1c 5.5 [...] PrEP for HIV Is the client intere stenba in beginning/continuing PrEP for HIV? No Sexual [...] into sexual activities? Yes Currently: No drugs, alf, safety, other. No Housing Social Info Question Answer Notes Housing The client's current living situation is: stable housing Tobacco Use: Social Info Question Answer Notes Tobacco Use: Do you/have you used tobacco? No Tobacco Smoking Status Never smoker Problems Problem Type SNOMED Code ICD Code Onset Dates Problem Status W/U Status Risk Notes Problem Irregular menstruation (50598535) Irregular menstruation, unspecified (N92.6) Active confirmed Vital Signs Blood pressure diastolic 84 mm Hg 05/01/2025 Height 5'2 in 05/01/2025 Blood pressure systolic 130 mm Hg 05/01/2025 Weight 166.3 lbs 05/01/2025 BMI 30.41 kg/m2 05/01/2025 Encounters Encounter Location Date Provider Diagnosis [address] [id number] 12/12/2024 HARSHIL CARBALLO Counseling, unspec ified Z71.9 ; Irregular menstruation, unspecified N92.6 and Encounter for screening for diabetes mellitus Z13.[address] [id number] 01/09/2025 HARSHIL CARBALLO Vaginitis, Acute N 76.0 ; Encounter for screening for other infectious and parasitic diseases Z11.8 ; Counseling, unspecified Z71.9 ; Encounter for screening for infections with a predominantly sexual mode of transmission Z11.3 and Other problems related to lifestyle Z72.[address] [id number] 05/01/2025 HARSHIL CARBALLO Screening Breast E xam Z12.39 and Breast tenderness N64.[address] [id number] 12/17/2024 HARSHIL CARBALLO [address] [id number] 12/29/2024 HARSHIL CARBALLO Assessments Encounter Date Diagnosis [...] the visit Educating the patient Established Patient: [id number] 20 Minutes 05/01/2025 Screening Breast Exam (ICD-10 - Z12.39) Spent 20 minutes doing the following: Chart Prep Obtaining/rev iewing history Performing medically necessary exam Counseling/Co ordination of Care Documenting the visit Educating the patient Established Patient: [id number] 20 Minutes 01/09/2025 Counseling, unspecified (ICD-10 - [...] clt can always schedule a consult with DIRECT SELLING COUNSELOR for hysterectomy but to be aware that [...] Insured Coverage Start Date Coverage End Date ID MEDICAID ATT CLAIMS [address] [place] [id number] Daniel Sung Self - patient is the insured Medical (General) History Medical History History ICD Code Asthma Seizures Weight concerns Migraines, head pressure Fibromyalgia Vertigo Stomach problems
--- OUTSIDE RECORDS SUMMARY | 2025-06-01 19:26 | XMS_ITS | Clinical Summary ---
Author Organization [facility] Address [address] [place] [address] Phone Care Team Providers Care Wood Boatbuilder Apprentice Name Role Phone Malika Moore MD Primary Care Provider [phone] Allergies Active Allergy Reactions Criticality Noted Date [...] 08/27/2022 Social Influencers of Health Screening 08/27/2022 Hepatitis B Vaccines (2 of 2 - CpG 2-dose series) 05/18/2024 04/20/2024 Depression Screening 09/17/2024 COVID-19 Vaccine ( - 2023-2 5 season) 2025 Influenza Vaccine (#1) 2025 DTaP,Tdap,and Td Vaccines [...] patient's age to complete this topic Insurance [facility] Care Teams Wood Boatbuilder Apprentice Relationship Specialty Start Date End Date Malika Moore MD [address] [place] [address] , [address] [facility] D/B/A: [facility] DARYL Veronica PCP - General Internal Medicine 01/20/22
== END 2025-06-01 14:54 | disposition home or self-care (01) ==
LOC: HO.HGI 14:07
PROVIDERS: PCP Internal Medicine; Visit Provider Internal Medicine
DX: R10.9 Unspecified abdominal pain (principal); R19.4 Change in bowel habit; R11.0 Nausea; R14.0 Abdominal distension (gaseous)
CPT/HCPCS: 99214

== ENCOUNTER 2025-06-01 14:06 | Outpatient (REF) | payer OTHER, SELFPAY | END 2025-06-01 14:07 | disposition home or self-care (01) | LOC: HO.LAB 14:06 | PROVIDERS: PCP Internal Medicine; Visit Provider Internal Medicine | DX: R19.4 Change in bowel habit (principal); R11.0 Nausea; R14.0 Abdominal distension (gaseous); R10.9 Unspecified abdominal pain; Z88.9 Allergy status to unspecified drugs, medicaments and biological substances | CPT/HCPCS: 36415; 83520; 99212 ==

== ENCOUNTER 2025-06-11 11:19 | Outpatient (AMB) | payer OTHER, SELFPAY ==
--- NOTE | 2025-06-11 11:21 | MHC.OFFVIS ---
Vital Signs 06/11/25 11:22 Height 5 ft 6 in Weight 163 lb 2 oz BMI 26.3 BP 120/76 Blood Pressure Location Rt brachial Position Sitting Pulse 73 Pulse Source Pulse Oximeter Pulse Oximetry (%) 98 Oxygen Delivery Method Room Air Intake Visit Reasons: 6m follow up Intake Note: Follow up Chronic migraine with aura, not intractable, without status migrainosus and seizures Research Agricultural Engineer Required: No Accompanied by: Self / Same As Patient Allergies pine nut Allergy (Mild, Verified 06/11/25 11:22) Rash Seasonal Allergies Allergy (Mild, Verified 06/11/25 11:22) Runny Nose face paint Allergy (Intermediate, Uncoded 06/01/25 14:21) face breaks out epsom salt Adverse Reaction (Severe, Uncoded 06/01/25 14:21) nimbness from head to toe. HPI Comments Details: 35y/o right handed female comes for f/u.Headaches are less since Sep 2024 . she is a poor historian - says 2-3 head pressure a month- lasting few seconds to minutes. any stress triggers frontal headaches 1 /month . It self resolves . Last visit history- 10/11 No falls she describes pressure in her head and feeling off balance prior to her falls.SHe is not a good historian- reports 1-2 episodes a day.( 30 sec - 60 sec) decreased tension type headaches- 1 since her last visit she is baclofen ,amitriptyline magnesium . she is still under a lot of stress. Her c spine MRI showed mild spondylolisthesis with mild canal stenosis. she sees a therapist who she talks 2 times a week . Previous history- she has h/o significant psychiatric and medical issues ( depression , non epileptic seizures, fibromyalgia etc). she was seen by [facility] neurology group in 2021 and had neuropsyhc eval which was inconclusive as her cognitive symptoms were life long and she was unable to recall her developmental history. Her intellectual functioning was low to average . Normal scores on visuospatial construction, nonverbal abstraction, General knowledge , visual story memory set shifting. Variable performances on concentration, working memory and executive function. Her main concerns today are the persistent head pain or pressure.It started about 1 year ago she says the whole had fills with pressure, legs give out and affects her equilibrium. she says this is different form headaches - it is as if her head is like a balloon filled with air.she has 1-3 times a day and lasts few minutes. she also has migraines for many years now. It can be frontal, occipital , whole head . It is pounding throbbing pain with light and noise sensitivty, nausea. she uses excedrin migraine 2 tabs to help.she has 2-3 times a week.she may have visual aura she also describes a daily general headaches which are frontal . No noise or light sensitvity.she takes excedrin she takes 4-6 excedrin migraines per day for 3 years now. she has h/o psyhcogenic seizures. Her last episode was 1 year ago and was admitted at [facility] .She has numbness, palpitations, cannot move and unresponsive. she says she can hear people but cannot respond and some involuntary movements. she has therapist and med doctor for her mood. she has chronic sleep issues.she has trouble falling asleep , staying asleep and has night terrors, sleep paralysis. she denies any urinary issues. [facility] Medical History (Updated 06/11/25 @ 11:39 by Elvia Esquivel MD) Bilateral headaches Snoring Hypersomnia Back pain Cervical spondylosis Neck pain Psychogenic nonepileptic seizure Chronic daily headache Chronic migraine with aura Right hand pain Left hand pain Physical exam Seizure-like activity Insomnia due to other mental disorder EMELY (generalized anxiety disorder) Mild major depression, single episode Abdominal pain Overweight (BMI 25.0-29.9) Hypovitaminosis D Surgical History History of esophagogastroduodenoscopy (EGD) History of carpal tunnel surgery Family History Father No problems noted. Mother HTN (hypertension) Diabetes Family/Other Medical history unknown Substance use disorder Family/Other Mental health disorder Social History Housing: Apartment Alcohol intake: current Alcohol intake frequency: holidays/special occasions only Patient Tobacco Use Status: Never used Tobacco e-Cigarette/Vaping Use: Never Used Second Hand Smoke Exposure: Yes service: No Current occupational status: unemployed Cognitive needs: No Hearing needs: No Vision needs: No Female Reproductive History Menstrual Age of Menarche: 9 Physical Exam Vital Signs: Last Vital Signs Pulse 73 06/11/25 11:22 BP 120/76 06/11/25 11:22 Pulse Ox 98 06/11/25 11:22 Oxygen Delivery Method Room Air 06/11/25 11:22 BMI result Body Mass Index 26.3 Const General: cooperative, healthy appearing and comfortable Nutritional Appearance: average body habitus Orientation/consciousness: patient oriented x3 Eyes Pupils: Equal, round and reactive pupils present Neuro General: patient oriented x3, tone normal, moves all extremities and no focal motor deficits Cranial nerves: Yes Facial sensation intact/muscles of mastication intact, Yes Equal, round and reactive pupils present, Yes Bilaterally intact EOM present, Yes Nystagmus not present, Yes Normal facial strength present, Yes Midline tongue present, Yes Symmetric palate elevation present and Yes Ability to bilaterally elevate shoulders present Cognition (Neuro): normal cognition Gait exam (Neuro): Normal gait present Motor exam (neuro): 5/5 motor strength present throughout and Normal motor muscle tone present throughout Coordination: cneooc-ym-fgnj test normal Psych Affect: Animated affect present Assessment & Plan Assessment & Plan (1) Bilateral headaches: Comment: less frequent and related to poorly controlled ADD ? Code(s): R51.9 - Headache, unspecified Category: Medical (2) Psychogenic nonepileptic seizure: Code(s): F44.5 - Conversion disorder with seizures or convulsions Category: Medical Plan: stable now. Plan magnesium 400mg qhs Her chronic headaches are better. baclofen 10 mg qhs Amitriptyline 25mg qhs - Neck exercises F/u with psychologist - has appointment with med provider Coding Level of Care Code Est Pt Level 4 (94468) Complex EM visit Add On G2211 Diagnoses Bilateral headaches R51.9 Psychogenic nonepileptic seizure F44.5
[2025-06-11 11:22] VITALS: BP 120/76; PULSE 73; O2SAT 98; BMI 26.3
== END 2025-06-11 11:42 | disposition home or self-care (01) ==
LOC: HO.HSMS 11:20
PROVIDERS: PCP Internal Medicine; Visit Provider Psychiatry & Neurology Neurology
DX: R51.9 Headache, unspecified (principal); F44.5 Conversion disorder with seizures or convulsions
CPT/HCPCS: 99214

== ENCOUNTER → 2025-06-11 11:19 | Outpatient (BNVA) | payer OTHER, SELFPAY | PROVIDERS: PCP Internal Medicine; Visit Provider Psychiatry & Neurology Neurology | DX: G43.E09 Chronic migraine with aura, not intractable, without status migrainosus (principal); F44.5 Conversion disorder with seizures or convulsions | CPT/HCPCS: 99212 ==

== ENCOUNTER → 2025-06-22 07:49 | Outpatient (REF) | payer OTHER, SELFPAY ==
--- NOTE | ~2025-06-22 | NM_ITS ---
EXAMINATION: NM HEPATOBILIARY WITH PHARM HISTORY: R11.0 - Nausea. TECHNIQUE: An hepatobiliary scan was performed following the intravenous administration of 5 mCi technetium 99m-mebrofenin. Sequential images were obtained over 1 hour. Subsequently, the patient received 1.4 microgram of IV CCK over 30 minutes and additional imaging was performed. COMPARISON: There are no prior studies available for comparison. FINDINGS: There is normal uptake and excretion of the radiopharmaceutical by the liver. Gallbladder activity is noted at 8 minutes. Common bile duct activity is seen at 7 minutes. Small bowel activity is noted at 30 minutes. After the administration of intravenous CCK, the estimated gallbladder ejection fraction is 97%, which is abnormally high (normal 35-80%), suggestive of biliary hyperkinesia. NM/NM hepatobiliary w pharm IMPRESSION: No evidence of cystic duct obstruction. Elevated gallbladder ejection fraction of 97% which can be seen in the setting of biliary hyperkinesia. Clinical correlation is recommended. Electronically signed by: Larry Mast MD 06/22/2025 11:44 AM EDT
--- OUTSIDE RECORDS SUMMARY | 2025-06-22 07:52 | XMS_ITS | Clinical Summary ---
Author Organization [facility] Address [address] [place] [address] Phone Care Team Providers Care Stonecutter Name Role Phone Malika Moore MD Primary Care Provider [phone] Allergies Active Allergy Reactions Criticality Noted Date [...] Cervical Cancer Screening: P ap Smear 02/20/2009 HPV Vaccines (1 - 3-dose SCD M series) 02/20/2015 HIV Screening 08/27/2022 Hepatitis C Screening 08/27/2022 Social Influencers of Health Screening 08/27/2022 Hepatitis B Vaccines (2 of 2 - CpG 2-dose series) 05/18/2024 04/20/2024 Depression Screening 09/17/2024 COVID-19 Vaccine (1 - 2023-2 5 season) 2025 Influenza Vaccine (#1) 2025 DTaP,Tdap,and Td Vaccines (2 - Td or Tdap) 10/20/2034 10/20/2024 RSV Immunization Adult Patie nts (1 - 1-dose 75+ series) 02/20/2063 Pneumococcal Vaccine: Pediat rics (0 to 5 [...] patient's age to complete this topic Insurance [facility] Care Teams Stonecutter Relationship Specialty Start Date End Date Malika Moore MD [address] [place] [address] , [address] [facility] D/B/A: [facility] DARYL Veronica PCP - General Internal Medicine 01/20/22
--- OUTSIDE RECORDS SUMMARY | 2025-06-22 07:52 | XMS_ITS | Patient Health Record ---
Author Organization [facility] Address [address] [place] [phone] Care Team Providers Care Wine Master Name Role Phone HARSHIL CARBALLO Unavailable [phone] Allergies Allergen (clinical drug ingredient) Drug/Non Drug Allergy documented on EMR Reaction Allergy Type Onset Date Status Cat dander Cat Dander Unknown Allergy Active Dust Mites Unknown Allergy Active Mold Unknown Allergy Active Pollen Pollen Unknown Allergy Active Rodents Unknown Allergy Active Results Component Value Reference Range Notes Hemoglobin [id number] Reviewed date:12/29/2024 11:53:02 AM Interpretation:5.5%, Normal Performing Lab:[facility], [address] [facility], Phone - [phone], Director - MDJodry Notes/Report: Hemoglobin A1c 5.5 4.8-5.6 % . Prediabetes: 5.7 - 6.4 Diabetes: >6.4 Glycemic control for adults with diabetes: <7.0 [id number] Reviewed date:12/29/2024 11:54:28 AM Interpretation:9.2 Normal Performing Lab:[facility], [address] [facility], Phone - [phone], Director - MDJodry Notes/Report: FSH 9.2 Adult Female Range Follicular phase 3.5 - 12.5 Ovulation phase 4.7 - 21.5 Luteal phase 1.7 - 7.7 Postmenopausal 25.8 - 134.8 Prolactin-[id number] Reviewed date:12/29/2024 11:54:52 AM Interpretation:9.2 Normal Performing Lab:[facility], [address] [facility], Phone - [phone], Director - MDJodry Notes/Report: Prolactin 9.2 4.8-33.4 ng/mL Estradiol-[id number] Reviewed date:12/29/2024 11:54:06 AM Interpretation:27.2 Normal Performing Lab:[facility], [address] [facility], Phone - [phone], Director - Jacob Notes/Report: Estradiol 27.7 Adult Female Range Follicular phase 12.5 - 166.0 Ovulation phase 85.8 - 498.0 Luteal phase 43.8 - 211.0 Postmenopausal <6.0 - 54.7 1st trimester 215.0 - >4300.0 Zac ECLIA methodology TSH reflex to [id number] Reviewed date:12/29/2024 11:53:19 AM Interpretation:1.31 Normal Performing Lab:[facility], [facility], [place], Phone - [phone], Director - Jacob Notes/Report: TSH 1.310 0.450-4.500 uIU/mL Wet Mount Reviewed date:01/09/2025 11:38:26 AM Interpretation:Few yeast buds, pH 5 Performing Lab: Notes/Report: Few yeast buds, pH 5 Clue Cells neg WBC few Hyphae few buds Trichomonas neg pH 5 MAGNUS Prep neg whiff NuSwab VG+, Jossy 6sp-1800 68 Reviewed date:01/14/2025 09:42:42 AM Interpretation:Negative Performing Lab:[facility], [address] [facility], [place], Phone - [phone], Director - Jacob Notes/Report: and Drug Administration. by [employer]. It has not been cleared or approved by the Food was developed and its performance characteristics determined 475418-Qtazttl krusei, NATACHA 690439-E parapsilosis/tropicalis; 757901-Nwelkhe lusitaniae, NATACHA; Test(s) 373936-Dyeumlh albicans, NATACHA; 781598-Mmxlfrl glabrata, NATACHA; and Drug Administration. by [employer]. It has not been cleared or approved by the Food was developed and its performance characteristics determined Megasphaera 1 Test(s) 782772- Atopobium vaginae; 380337- BVAB 2; 684483- Atopobium vaginae Low - 0 BVAB 2 [...] into sexual activities? Yes Currently: No drugs, detention, safety, other. No Housing Social Info Question Answer Notes Housing The client's current living situation is: stable housing Tobacco Use: Social Info Question Answer Notes Tobacco Use: Do you/have you used tobacco? No Tobacco Smoking Status Never smoker Problems Problem Type SNOMED Code ICD Code Onset Dates Problem Status W/U Status Risk Notes Problem Irregular menstruation (61205107) Irregular menstruation, unspecified (N92.6) Active confirmed Vital Signs Blood pressure diastolic 84 mm Hg 05/01/2025 Height 5'2 in 05/01/2025 Blood pressure systolic 130 mm Hg 05/01/2025 Weight 166.3 lbs 05/01/2025 BMI 30.41 kg/m2 05/01/2025 Encounters Encounter Location Date Provider Diagnosis [address] [id number] 12/12/2024 HARSHIL CARBALLO Counseling, unspec ified Z71.9 ; Irregular menstruation, unspecified N92.6 and Encounter for screening for diabetes mellitus Z13.[address] [id number] 01/09/2025 HARSHIL CARBALLO Vaginitis, Acute N 76.0 ; Encounter for screening for other infectious and parasitic diseases Z11.8 ; Counseling, unspecified Z71.9 ; Encounter for screening for infections with a predominantly sexual mode of transmission Z11.3 and Other problems related to lifestyle Z72.[address] [id number] 05/01/2025 HARSHIL CARBALLO Screening Breast E xam Z12.39 and Breast tenderness N64.[address] [id number] 12/17/2024 HARSHIL CARBALLO [address] [id number] 12/29/2024 HARSHIL CARBALLO Assessments Encounter Date Diagnosis [...] the visit Educating the patient Established Patient: [id number] 20 Minutes 05/01/2025 Screening Breast Exam (ICD-10 - Z12.39) Spent 20 minutes doing the following: Chart Prep Obtaining/rev iewing history Performing medically necessary exam Counseling/Co ordination of Care Documenting the visit Educating the patient Established Patient: [id number] 20 Minutes 01/09/2025 Counseling, unspecified (ICD-10 - [...] clt can always schedule a consult with SPEEDER FRAME TENDER for hysterectomy but to be aware that [...] Insured Coverage Start Date Coverage End Date [place]ICA[place] ATT CLAIMS [address] [place] [id number] Daniel Sung Self - patient is the insured Medical (General) History Medical History History ICD Code Asthma Seizures Weight concerns Migraines, head pressure Fibromyalgia Vertigo Stomach problems
== END ==
LOC: HO.NUCMED 07:49
PROVIDERS: PCP Internal Medicine; Visit Provider Internal Medicine
DX: R11.0 Nausea (principal); R10.84 Generalized abdominal pain
CPT/HCPCS: 78227; A9537; J2805

== ENCOUNTER → 2025-06-22 07:50 | Outpatient (BNV) | payer OTHER, SELFPAY | PROVIDERS: PCP Internal Medicine; Visit Provider Radiology Diagnostic Radiology | DX: K82.8 Other specified diseases of gallbladder (principal) | CPT/HCPCS: 78227 ==

== ENCOUNTER 2025-07-15 09:47 | Outpatient (AMB) | payer OTHER, SELFPAY ==
--- NOTE | 2025-07-15 09:51 | MHC.OFFVIS ---
Vital Signs 07/15/25 10:01 Height 5 ft 6 in Weight 161 lb 4 oz BMI 26.0 Intake Visit Reasons: biliary hyperkinesia Intake Note: This patient presents for an assessment for biliary hyperkinesia. Pt c/o; RUQ pain radiates towards back and epigastric region, reports nausea for the last three weeks, reports diarrhea. 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 HPI HPI biliary hyperkinesia: Details: [age] year old female referred for biliary hyperkinesia She describes having chronic abdominal pain for so many years now. She says that this has had this for over 5 years. She describes pain that says she randomly feel that can be severe. She does not think this is related to food. She says that even some physical activity can cause her pain her abdomen. She says that she also has frequent nausea although she this has not really throw up. She has been followed by the supervisor dry cell assembly service for her chronic abdominal pain. She was sent for a HIDA scan which showed an ejection fraction of 27% so she was referred to me She does state that her pain seemed to be more of diffuse rather than localized with the right upper quadrant. She also has fibromyalgia and has pain all over extremities and torso as well as the back. She has a history of anxiety and depression. She says she had seizures in the past. [facility] Medical History (Updated 07/15/25 @ 10:33 by Bhavik Mendoza MD) Biliary dyskinesia Chronic abdominal pain Bilateral headaches Snoring Hypersomnia Back pain Cervical spondylosis Neck pain Psychogenic nonepileptic seizure Chronic daily headache Chronic migraine with aura Right hand pain Left hand pain Physical exam Seizure-like activity Insomnia due to other mental disorder EMELY (generalized anxiety disorder) Mild major depression, single episode Abdominal pain Overweight (BMI 25.0-29.9) Hypovitaminosis D Surgical History History of esophagogastroduodenoscopy (EGD) History of carpal tunnel surgery Family History Father No problems noted. Mother HTN (hypertension) Diabetes Family/Other Medical history unknown Substance use disorder Family/Other Mental health disorder Social History Housing: Apartment Alcohol intake: current Alcohol intake frequency: holidays/special occasions only Patient Tobacco Use Status: Never used Tobacco e-Cigarette/Vaping Use: Never Used Second Hand Smoke Exposure: Yes service: No Current occupational status: unemployed Cognitive needs: No Hearing needs: No Vision needs: No Female Reproductive History Menstrual Age of Menarche: 9 Review of Systems Const Denies chills and Denies fever(s) Card Denies chest pain, Denies dyspnea and Denies dyspnea on exertion Resp Denies cough, Denies dyspnea and Denies dyspnea on exertion GI Denies hematochezia, Denies change in bowel habits and Reports nausea Denies hematuria Musc Reports back pain, Reports myalgias, Reports arthralgias and Denies limited range of motion Neuro Denies focal weakness and Denies convulsions Psych Denies depression and Denies mood swings Physical Exam Vital Signs: BMI result Body Mass Index 26.0 Const General: comfortable and no acute distress Orientation/consciousness: patient oriented x3 Neck Neck: Yes no lymphadenopathy Resp Auscultation: clear to auscultation bilaterally Cardio Rhythm: regular rhythm GI Palpation (GI): Soft to palpation, nontender and no guarding Neuro General: patient oriented x3 Assessment & Plan Assessment & Plan (1) Chronic abdominal pain: Code(s): R10.9 - Unspecified abdominal pain; G89.29 - Other chronic pain Category: Medical Plan: She wants to proceed with cholecystectomy in view of her high ejection fraction on a HIDA scan. I have ordered for a CAT scan of the abdomen and pelvis as well (2) Biliary dyskinesia: Code(s): K82.8 - Other specified diseases of gallbladder Category: Medical Plan: She has had this chronic abdominal pain, diffuse, as well as frequent nausea. She says that she has had this for many years and she says that this has been affecting her life now. Her supervisor dry cell assembly referred her to me because of high ejection fraction on HIDA scan. Her EF was 97% suggestive of biliary hyperkinesia. I did tell her that I am uncertain as to whether this explains her induration of GI issues and abdominal pain. I explained to her that her overall clinical picture does not really suggest a gallbladder etiology. I did tell her the option of proceeding with cholecystectomy. I discussed with the technique of laparoscopic cholecystectomy and possible open cholecystectomy. I reviewed the risks including but not limited to bleeding, infections, injury to other organs including bowel, liver and the bile ducts, non resolution of her symptoms, bile leak, as well as the benefits and alternatives. I also explained to her what to expect postoperatively. I emphasized to her that there is no guarantee that cholecystectomy will resolve her complaints currently. She says she really wants to proceed with cholecystectomy. I have order for a CAT scan of the abdomen and pelvis as well to rule out any other pathology I also instructed her to make sure she continues to follow up with her supervisor dry cell assembly. Orders: Orders Blood Urea Nitrogen 07/15/25 G89.29 - Other chronic pain, R10.9 - Unspecified abdominal pain Creatinine 07/15/25 G89.29 - Other chronic pain, R10.9 - Unspecified abdominal pain CT abdomen pelvis w IV con 07/15/25 G89.29 - Other chronic pain, R10.9 - Unspecified abdominal pain Coding Level of Care Code New Pt Level 3 (97927) Diagnoses Chronic abdominal pain R10.9; G89.29 Biliary dyskinesia K82.8
[2025-07-15 10:01] VITALS: BMI 26.0
--- OUTSIDE RECORDS SUMMARY | 2025-07-15 11:46 | XMS_ITS | Patient Health Record ---
Author Organization [facility] Address [address] [place] [address] Care Team Providers Care Automatic Quilling Machine Operator Name Role Phone HARSHIL CARBALLO Unavailable [phone] Allergies Allergen (clinical drug ingredient) Drug/Non Drug Allergy documented on EMR Reaction Allergy Type Onset Date Status Cat dander Cat Dander Unknown Allergy Active Dust Mites Unknown Allergy Active Mold Unknown Allergy Active Pollen Pollen Unknown Allergy Active Rodents Unknown Allergy Active Results Component Value Reference Range Notes TSH reflex to [id number] Reviewed date:12/29/2024 11:53:19 AM Interpretation:1.31 Normal Performing Lab:[facility], [address] [place] [address], Phone - [phone], Director - MDJodry Notes/Report: TSH 1.310 0.450-4.500 uIU/mL Estradiol-[id number] Reviewed date:12/29/2024 11:54:06 AM Interpretation:27.2 Normal Performing Lab:[facility], [address] [place] [address], Phone - [phone], Director - MDJodry Notes/Report: Estradiol 27.7 Adult Female Range Follicular phase 12.5 - 166.0 Ovulation phase 85.8 - 498.0 Luteal phase 43.8 - 211.0 Postmenopausal <6.0 - 54.7 1st trimester 215.0 - >4300.0 Zac ECLIA methodology [id number] Reviewed date:12/29/2024 11:54:52 AM Interpretation:9.2 Normal Performing Lab:[facility], [address] [facility], Phone - [phone], Director - MDJodry Notes/Report: Prolactin 9.2 4.8-33.4 ng/mL FSH-[id number] Reviewed date:12/29/2024 11:54:28 AM Interpretation:9.2 Normal Performing Lab:[facility], [address] [place] [address], Phone - [phone], Director [facility] Notes/Report: FSH 9.2 Adult Female Range Follicular phase 3.5 - 12.5 Ovulation phase 4.7 - 21.5 Luteal phase 1.7 - 7.7 Postmenopausal 25.8 - 134.8 Hemoglobin [id number] Reviewed date:12/29/2024 11:53:02 AM Interpretation:5.5%, Normal Performing Lab:[facility], [address] [place] [address], Phone - [phone], Director - MDKayleeny Notes/Report: Hemoglobin A1c 5.5 4.8-5.6 % . Prediabetes: 5.7 - 6.4 Diabetes: >6.4 Glycemic control for adults with diabetes: <7.0 NuSwab VG+, Jossy 6sp-1800 68 Reviewed date:01/14/2025 09:42:42 AM Interpretation:Negative Performing Lab:[facility], [address] [place] [address], Phone - [phone], Director - CALilli Notes/Report: and Drug Administration. by [employer]. It has not been cleared or approved by the Food was [employer] and its performance characteristics determined 586610-Olkukzy krusei, NATACHA 088992-U parapsilosis/tropicalis; 269637-Fwuzuuo lusitaniae, NATACHA; Test(s) 718772-Qecheul albicans, NATACHA; 492434-Vwjkumw glabrata, NATACHA; and Drug Administration. by [employer]. It has not been cleared or approved by the [employer] was [employer] and its performance characteristics determined Megasphaera 1 Test(s) 832669- Atopobium vaginae; 791298- BVAB 2; 083148- Atopobium vaginae Low - 0 BVAB 2 [...] neg pH 5 MAGNUS Prep neg whiff Reason For Referral No Information Medications Medication [...] into sexual activities? Yes Currently: No drugs, long-term, safety, other. No Housing Social Info Question Answer Notes Housing The client's current living situation is: stable housing Tobacco Use: Social Info Question Answer Notes Tobacco Use: Do you/have you used tobacco? No Tobacco Smoking Status Never smoker Problems Problem Type SNOMED Code ICD Code Onset Dates Problem Status W/U Status Risk Notes Problem Irregular menstruation (00313880) Irregular menstruation, unspecified (N92.6) Active confirmed Vital Signs Blood pressure diastolic 84 mm Hg 05/01/2025 Height 5'2 in 05/01/2025 Blood pressure systolic 130 mm Hg 05/01/2025 Weight 166.3 lbs 05/01/2025 BMI 30.41 kg/m2 05/01/2025 Encounters Encounter Location Date Provider Diagnosis [address] [id number] 12/12/2024 HARSHIL CARBALLO Counseling, unspec ified Z71.9 ; Irregular menstruation, unspecified N92.6 and Encounter for screening for diabetes mellitus Z13.[address] [id number] 01/09/2025 HARSHIL CARBALLO Vaginitis, Acute N 76.0 ; Encounter for screening for other infectious and parasitic diseases Z11.8 ; Counseling, unspecified Z71.9 ; Encounter for screening for infections with a predominantly sexual mode of transmission Z11.3 and Other problems related to lifestyle Z72.[address] [id number] 05/01/2025 HARSHIL CARBALLO Screening Breast E xam Z12.39 and Breast tenderness N64.[address] [id number] 12/17/2024 HARSHIL CARBALLO [address] [id number] 12/29/2024 HARSHIL CARBALLO Assessments Encounter Date Diagnosis [...] the visit Educating the patient Established Patient: [id number] 20 Minutes 05/01/2025 Screening Breast Exam (ICD-10 - Z12.39) Spent 20 minutes doing the following: Chart Prep Obtaining/rev iewing history Performing medically necessary exam Counseling/Co ordination of Care Documenting the visit Educating the patient Established Patient: [id number] 20 Minutes 01/09/2025 Counseling, unspecified (ICD-10 - [...] clt can always schedule a consult with PAGE MAKEUP SYSTEM OPERATOR for hysterectomy but to be aware that [...] Insured Coverage Start Date Coverage End Date [place] MEDICAID ATT CLAIMS [address] [place] [id number] Daniel Sung Self - patient is the insured Medical (General) History Medical History History ICD Code Asthma Seizures Weight concerns Migraines, head pressure Fibromyalgia Vertigo Stomach problems
--- OUTSIDE RECORDS SUMMARY | 2025-07-15 11:46 | XMS_ITS | Clinical Summary ---
Author Organization [address] [facility] Address [address] [place] [address] Phone Care Team Providers Care Senior Controls Engineer Name Role Phone Malika Moore MD Primary Care Provider [phone] Allergies Active Allergy Reactions Criticality Noted Date [...] patient's age to complete this topic Insurance [facility] [place] [address] Care Teams Senior Controls Engineer Relationship Specialty Start Date End Date Malika Moore MD [address] [place] [address] , [address] [facility] D/B/A: [facility] DARYL Veronica PCP - General Internal Medicine 01/20/22
== END 2025-07-15 10:59 | disposition home or self-care (01) ==
LOC: HO.HGS 09:48
PROVIDERS: PCP Internal Medicine; Visit Provider Surgery
DX: R10.9 Unspecified abdominal pain (principal); G89.29 Other chronic pain; K82.8 Other specified diseases of gallbladder
CPT/HCPCS: 99203

== ENCOUNTER 2025-07-15 09:47 | Outpatient (REF) | payer OTHER, SELFPAY ==
[2025-07-15 12:27] LABS: Blood Urea Nitrogen 5 mg/dL (9-16); Estimated Glomerular Filt Rate > 60
== END 2025-07-15 09:48 | disposition home or self-care (01) ==
LOC: HO.LAB 09:47
PROVIDERS: PCP Internal Medicine; Visit Provider Surgery
DX: K82.8 Other specified diseases of gallbladder (principal); G89.29 Other chronic pain
CPT/HCPCS: 36415; 82565; 84520; 99202

== ENCOUNTER 2025-07-16 15:10 | Emergency (ER) | payer OTHER, SELFPAY ==
--- NOTE | ~2025-07-16 | CT_ITS ---
CLINICAL HISTORY: upper abdominal pain CT abdomen and pelvis with contrast Comparison: None provided Findings: The lung bases are clear. The gallbladder and solid organs are within normal limits. No renal stones. No bowel obstruction, pneumoperitoneum, or pneumatosis. Pelvic contents unremarkable. Normal appendix. The bones are intact. IMPRESSION: No acute findings. This document has been electronically signed by: Alexi Gordon MD on 07/16/2025 22:40:34
[2025-07-16 15:53] VITALS: BP 160/77; PULSE 105; RESP 20; TEMP 36.9; O2SAT 100; BMI 24.6
--- NOTE | 2025-07-16 15:59 | ED.GENADULT ---
HPI - General Adult General Chief complaint: Abdominal Pain Stated complaint: abd pain nausea Time Seen by Provider: 07/16/25 20:27 Source: patient, RN notes reviewed and old records reviewed Mode of arrival: ambulatory Limitations: no limitations History of Present Illness ED Provider: Jackie HPI narrative: 35-year-old female presents for evaluation of abdominal pain. Patient reports that she has had upper abdominal pain with nausea and decreased appetite for several months. She saw Dr. Mendoza as an outpatient yesterday, general surgery. She has plans to get a CT scan of the abdomen pelvis but this is not scheduled for August 24. The patient reports that she can not wait that long. The patient is interested in having her gallbladder removed as she was told she has hypokinesis of the gallbladder and that may be causing your symptoms. On review of her outpatient surgery notes, Dr. Mendoza is not confident that this is the cause of her pain The patient has not seen GI in several years and her last endoscopy was over 5 years ago She denies any black or bloody stool pain Currently her pain is a 7/10 Denies any fevers or chills Denies any previous abdominal surgeries Related Data Home Medications ?Medication ?Instructions ?Recorded ?Confirmed fluticasone propionate 115 2 puff inhalation BID 05/11/23 10/20/24 mcg-salmeterol 21 mcg/actuation HFA inhaler (Advair HFA) inhalational spacing device #1 ea 05/11/23 10/20/24 ([facility] spacer) escitalopram oxalate 20 mg tablet 20 mg PO QAM 07/15/25 lisdexamfetamine 10 mg capsule 10 mg PO QAM 07/15/25 (Vyvanse) Previous Rx's ?Medication ?Instructions ?Recorded buspirone 10 mg tablet 10 mg PO TID 30 days #90 tabs 01/08/22 Ventolin HFA 90 mcg/actuation 2 puff inhalation Q6H PRN 02/01/23 aerosol inhaler (albuterol sulfate) shortness of breath or wheezing 30 days #8 grams psyllium husk 3 gram oral powder 3 g PO DAILY #54 ea 01/12/25 packet fexofenadine 60 mg tablet (Shea 60 mg PO BID 90 days #180 tabs 01/26/25 Allergy) montelukast 10 mg tablet 10 mg PO BEDTIME 90 days #90 tabs 01/28/25 cholecalciferol (vitamin D3) 50 50 mcg PO DAILY 90 days #90 caps 04/24/25 mcg (2,000 unit) capsule baclofen 10 mg tablet 10 mg PO BEDTIME #30 tabs 04/27/25 magnesium oxide 400 mg (241.3 mg 400 mg PO ONCE 3 months #90 tabs 04/27/25 magnesium) tablet famotidine 20 mg tablet 20 mg PO DAILY 90 days #90 tabs 06/01/25 topiramate 25 mg tablet 25 mg PO BEDTIME #30 tabs 06/23/25 ondansetron 4 mg disintegrating 4 mg PO BID PRN nausea and 06/30/25 tablet vomiting 5 days #10 tabs Allergies Allergy/AdvReac Type Severity Reaction Status Date / Time pine nut Allergy Mild Rash Verified 07/16/25 15:58 Seasonal Allergies Allergy Mild Runny Nose Verified 07/16/25 15:58 face paint Allergy Intermediate face Uncoded 07/16/25 15:58 breaks out epsom salt AdvReac Severe nimbness Uncoded 07/16/25 15:58 from head to toe. Review of Systems Constitutional: Constitutional: Denies body ache(s), Denies chills, Denies fever(s) and Denies headache(s) Eyes: Eyes: Denies blurry vision ENT: Denies vertigo, Denies dizziness and Denies headache(s) Cardiovascular: Cardiovascular: Denies chest pain and Denies dyspnea on exertion Respiratory: Respiratory: Denies cough and Denies dyspnea on exertion Gastrointestinal: Gastrointestinal: Reports abdominal pain, Denies melena, Denies constipation, Reports nausea and Reports vomiting Musculoskeletal: Musculoskeletal: Denies back pain Integumentary/Breasts: Skin/Breast: Denies rash Neurologic: Denies vertigo, Denies dizziness and Denies headache(s) Psychiatric: Psychiatric: Denies anxiety PMFSH Past Medical History Medical History (Updated 07/17/25 @ 00:01 by Background Daemon) Biliary dyskinesia Chronic abdominal pain Bilateral headaches Snoring Hypersomnia Back pain Cervical spondylosis Neck pain Psychogenic nonepileptic seizure Chronic daily headache Chronic migraine with aura Right hand pain Left hand pain Physical exam Seizure-like activity Insomnia due to other mental disorder EMELY (generalized anxiety disorder) Mild major depression, single episode Abdominal pain Overweight (BMI 25.0-29.9) Hypovitaminosis D Surgical History History of esophagogastroduodenoscopy (EGD) History of carpal tunnel surgery Family History Family History Father No problems noted. Mother HTN (hypertension) Diabetes Family/Other Medical history unknown Substance use disorder Family/Other Mental health disorder Social History Social History Housing: Apartment Alcohol intake: current Alcohol intake frequency: holidays/special occasions only Patient Tobacco Use Status: Never used Tobacco e-Cigarette/Vaping Use: Never Used Second Hand Smoke Exposure: Yes service: No Current occupational status: unemployed Cognitive needs: No Hearing needs: No Vision needs: No Physical Exam ED Vital Signs: Vital Signs - 24 hr 07/16/25 15:53 07/16/25 22:15 Temperature 98.4 F 98.3 F Pulse Rate 105 H 74 Respiratory Rate 20 18 Blood Pressure 160/77 H 122/75 Pulse Oximetry 100 99 Oxygen Delivery Method Room Air Room Air BMI result Body Mass Index 24.6 Const General: healthy appearing, comfortable, no acute distress, alert and awake Nutritional Appearance: well nourished Orientation/consciousness: patient oriented x3 HENMT Head: Yes normocephalic and Yes atraumatic Eyes Eyelids: Yes eyelids normal Conjunctivae: conjunctivae normal Sclerae: sclerae normal Corneas: corneas normal Pupils: Equal, round and reactive pupils present EOM: EOMs intact bilaterally Neck Neck: Yes full ROM Resp Effort & Inspection: normal respiratory effort, able to speak in complete sentences and not labored GI Inspection: No distended Palpation (GI): Soft to palpation, not firm, Tenderness to palpation present (GI) in the epigastrum and in the RUQ; not periumbilically and not suprapubicly, no guarding and not rigid Skin General skin exam: no rashes or lesions noted Neuro General: patient oriented x3 Cranial nerves: Yes Equal, round and reactive pupils present and Yes Bilaterally intact EOM present Cognition (Neuro): normal cognition Extrem Other: Moving all extremities well without any obvious deformities Course Course Course Narrative: RME: 35-year-old female with history of biliary dyskinesia presents to the ED for right upper quadrant pain head sent from surgeon for CT scan. Patient denies any fever or chills. Positive right upper quadrant tenderness. Medications Administered Discontinued Medications Generic Name Dose Route Start Last Admin Trade Name Yadira PRN Reason Stop Dose Admin Iohexol 85 ml 07/16/25 21:36 07/16/25 21:36 Iohexol 350 Mg/Ml 100 Ml Infus..Btl IV 07/16/25 21:37 85 ml ONCE ONE Administration Medical Decision Making Medical Decision Making [facility] Narrative: 35-year-old female presents for evaluation of acute on chronic upper abdominal pain. She has had this pain for several months in his currently falling with General surgery. She has not seen GI in several years. The patient reports that her abdominal pain has been more severe and she is not believe that she can wait until August have an outpatient CT scan. Denies any fevers, chills. She is still passing gas and having bowel movements, he has no evidence to suggest that she has a bowel obstruction. She has a mild leukocytosis to 11.5. This may be reactive. No significant chemistry abnormalities warranting dimension. LFTs within normal limits. Renal function within normal limits. The patient is not . Given her significant tenderness we will get a CT scan of the abdomen pelvis Differential Diagnosis Differential Diagnoses: The differential diagnosis associated with the presentation includes Chronic abdominal pain Biliary colic Acute cholecystitis Cholelithiasis Peptic ulcer disease Pancreatitis Lab Data [facility] Lab Attestation statement: I reviewed the patient's lab results. As above 07/16/25 16:06 07/16/25 16:06 Labs: Lab Results 07/16/25 07/16/25 Range/Units 16:06 22:15 WBC 11.5 H (4.8-10.8) X10*3/uL RBC 4.62 (4.20-5.50) X10*6/uL Hgb 13.6 (12.0-16.0) g/dl Hct 39.7 (37.0-47.0) % MCV 85.9 (80.0-98.0) fL MCH 29.4 (27.0-33.0) pg MCHC 34.3 (31.0-35.0) g/dl RDW 12.5 (11.0-16.0) % Plt Count 345 (160-400) X10*3/uL MPV 9.9 (9.4-12.3) fL Immature Gran % (Auto) 1.0 H (0.0-0.4) % Neut % (Auto) 76.7 H (45-73) % Lymph % (Auto) 16.9 L (20-40) % Ross % (Auto) 4.9 (2-11) % Eos % (Auto) 0.2 (0-4) % Baso % (Auto) 0.3 (0-2) % Lymph # (Auto) 1.9 (1.2-4.9) X10*3/uL Ross # (Auto) 0.6 (0.1-1.2) X10*3/uL Eos # (Auto) 0.0 (0.0-0.4) X10*3/uL Baso # (Auto) 0.0 (0.0-0.2) X10*3/uL Abs Immat Gran (auto) 0.11 H (0.00-0.03) X10*3/uL Absolute Neuts (auto) 8.8 H (2.0-8.3) x10*3/uL Absolute Nucleated RBC 0.000 (0.0-0.012) X10*3/uL Nucleated RBC % (auto) 0.0 (0.0-0.2) /100WBC Sodium 141 (135-145) mmol/L Potassium 3.7 (3.3-5.1) mmol/L Chloride 108 (96-108) mmol/L Carbon Dioxide 26 (22-29) mmol/L Anion Gap 11 L (12-20) BUN 4 L (9-16) mg/dL Creatinine 0.67 (0.5-1.4) mg/dL Estim Creat Clear Calc 115.9 Estimated GFR > 60 Random Glucose 104 (60-115) mg/dL Calcium 9.6 (8.4-10.2) mg/dL Total Bilirubin 0.4 (0.0-1.0) mg/dL AST 22 (5-31) U/L ALT 16 (0-31) U/L Alkaline Phosphatase 89 (39-117) U/L Total Protein 7.6 (6.5-8.0) g/dL Albumin 4.9 (3.5-5.0) g/dL Lipase 10 (8-78) U/L Beta HCG, Quant < 2 mIU/mL Urine Color Yellow Urine Appearance Turbid Urine pH 6.5 (5.0-9.0) Ur Specific [place] 1.015 (1.005-1.025) Urine Protein 30 (1+) H (Neg-Trace) mg/dL Urine Glucose (UA) Negative (Negative) mg/dL Urine Ketones 40 (Negative) mg/dL Urine Blood Negative (Negative) Urine Nitrite Negative (Negative) Ur Leukocyte Esterase Moderate (2+) H (Negative) Urine RBC 0-2 (0-2) /HPF Urine WBC 6-10 (0-5) /HPF Ur Squamous Epith Cells >20 (0-2) /HPF Urine Bacteria 4+ (None Seen) Hyaline Casts 6-10 (0-2) /LPF Radiology Impression Discussion of test interpretation with radiology: I have reviewed the radiologist's reading. Radiologist Impression: Findings: The lung bases are clear. The gallbladder and solid organs are within normal limits. No renal stones. No bowel obstruction, pneumoperitoneum, or pneumatosis. Pelvic contents unremarkable. Normal appendix. The bones are intact. IMPRESSION: No acute findings. This document has been electronically signed by: Alexi Gordon MD on 07/16/2025 22:40:34 External Record Review External record reviewed: Prior outpatient labs and Prior outpatient radiology Discharge Plan Discharge Clinical Impression: Abdominal pain Qualifiers: Abdominal location: generalized Qualified Code(s): R10.84 - Generalized abdominal pain Patient Disposition: Home, Self-Care Instructions: Abdominal Pain (ED) Additional Instructions: Your workup in the ER today was reassuring. This includes your blood work, the CT scan of the abdomen pelvis does not show any acute findings to explain your pain pain I recommend that you follow up with general surgery as well as GI Return for new or worsening symptoms Prescriptions: No Action buspirone 10 mg tablet 10 mg PO TID 30 Days Qty: 90 2RF albuterol sulfate [Ventolin HFA] 90 mcg/actuation HFA aerosol inhaler 2 puff inhalation Q6H PRN (Reason: shortness of breath or wheezing) 30 Days Qty: 8 0RF fexofenadine [Shea Allergy] 60 mg tablet 60 mg PO BID 90 Days Qty: 180 0RF montelukast 10 mg tablet 10 mg PO BEDTIME 90 Days Qty: 90 1RF cholecalciferol (vitamin D3) 50 mcg (2,000 unit) capsule 50 mcg PO DAILY 90 Days Qty: 90 1RF magnesium oxide 400 mg (241.3 mg magnesium) tablet 400 mg PO ONCE 90 Days Qty: 90 6RF baclofen 10 mg tablet 10 mg PO BEDTIME Qty: 30 3RF topiramate 25 mg tablet 25 mg PO BEDTIME Qty: 30 0RF ondansetron 4 mg tablet,disintegrating 4 mg PO BID PRN (Reason: nausea and vomiting) 5 Days Qty: 10 1RF psyllium husk 3 gram powder in packet 3 g PO DAILY Qty: 54 1RF fluticasone propion-salmeterol [Advair HFA] 115-21 mcg/actuation HFA aerosol inhaler 2 puff inhalation BID (DME) [facility] Spacer See Rx Instructions .ROUTE .MEDSUPPLY Qty: 1 Rx Instructions: As directed famotidine 20 mg tablet 20 mg PO DAILY 90 Days Qty: 90 1RF lisdexamfetamine [Vyvanse] 10 mg capsule 10 mg PO QAM escitalopram oxalate 20 mg tablet 20 mg PO QAM Referrals: [facility] [Provider Group, Gastroenterology] Referral Note: Chronic abdominal pain Interventions: ED Discharge Assessment Last Done: 07/16/25 23:13 Discharge Date/Time: 07/16/25 23:21 Print Language: Macedonian
[2025-07-16 16:10] LABS: MANUAL DIFF FLAG NO
[2025-07-16 16:18] LABS: Hematocrit 39.7 % (37.0-47.0); Hemoglobin 13.6 g/dl (12.0-16.0); Imm Gran Abs Auto 0.11 X10*3/uL (0.00-0.03); Imm Gran Pct Auto 1.0 % (0.0-0.4); Lymphocytes Absolute Auto 1.9 X10*3/uL (1.2-4.9); Mean Corpuscular HGB Conc 34.3 g/dl (31.0-35.0); Mean Corpuscular Hemoglobin 29.4 pg (27.0-33.0); Mean Corpuscular Volume 85.9 fL (80.0-98.0); NRBC Abs Auto 0.000 X10*3/uL (0.0-0.012); NRBC Pct Auto 0.0 /100WBC (0.0-0.2); Platelet Count 345 X10*3/uL (160-400); Red Blood Count 4.62 X10*6/uL (4.20-5.50); White Blood Count 11.5 X10*3/uL (4.8-10.8)
[2025-07-16 16:34] LABS: Alanine Aminotransferase 16 U/L (0-31); Albumin Level 4.9 g/dL (3.5-5.0); Alkaline Phosphatase 89 U/L (39-117); Anion Gap 11 (12-20); Aspartate Amino Transferase 22 U/L (5-31); Blood Urea Nitrogen 4 mg/dL (9-16); Calcium 9.6 mg/dL (8.4-10.2); Carbon Dioxide 26 mmol/L (22-29); Chloride 108 mmol/L (96-108); Creatinine Clr Calc Pharmacy 115.9; Estimated Glomerular Filt Rate > 60; Lipase 10 U/L (8-78); Potassium 3.7 mmol/L (3.3-5.1); Sodium 141 mmol/L (135-145); Total Protein 7.6 g/dL (6.5-8.0)
--- OUTSIDE RECORDS SUMMARY | 2025-07-16 20:18 | XMS_ITS | Clinical Summary ---
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 [place] [id number] Care Teams Loom Mechanic Relationship Specialty Start Date End Date Malika Moore MD [address] [place] [address] , [address] [facility] D[facility]A: [facility] DARYL Veronica PCP - General Internal Medicine 01/20/22
--- OUTSIDE RECORDS SUMMARY | 2025-07-16 20:18 | XMS_ITS | Patient Health Record ---
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 Name Role Phone HARSHIL CARBALLO Unavailable [phone] Allergies Allergen (clinical drug ingredient) Drug/Non Drug Allergy documented on EMR Reaction Allergy Type Onset Date Status Cat dander Cat Dander Unknown Allergy Active Dust Mites Unknown Allergy Active Mold Unknown Allergy Active Pollen Pollen Unknown Allergy Active Rodents Unknown Allergy Active Results Component Value Reference Range Notes NuSwab VG+, Jossy 6sp-1800 68 Reviewed date:01/14/2025 09:42:42 AM Interpretation:Negative Performing Lab:[facility] [place], [address] [place] [address], [place], Phone - [phone], Director - Jacob Notes/Report: and Drug Administration. by [facility]. It has not been cleared or approved by the [employer] and its performance characteristics determined 486606-Vpeaybf krusei, NATACHA 417182-T parapsilosis/tropicalis; 416231-Itpxski lusitaniae, NATACHA; Test(s) 280220-Jgzdozx albicans, NATACHA; 465639-Ksnubvd glabrata, NATACHA; and Drug Administration. by [facility]. It has not been cleared or approved by the [employer] was [employer] and its performance characteristics determined Megasphaera 1 Test(s) 855238- Atopobium vaginae; 561011- BVAB 2; 474440- Atopobium vaginae Low - 0 BVAB 2 [...] MAGNUS Prep neg whiff TSH reflex to [id number] Reviewed date:12/29/2024 11:53:19 AM Interpretation:1.31 Normal Performing Lab:[facility], Phone - [phone], Director - MDJodry Notes/Report: TSH 1.310 0.450-4.500 uIU/mL Estradiol-[id number] Reviewed date:12/29/2024 11:54:06 AM Interpretation:27.2 Normal Performing Lab:[facility] [address], Phone - [phone], Director - MDJodry Notes/Report: Estradiol 27.7 Adult Female Range Follicular phase 12.5 - 166.0 Ovulation phase 85.8 - 498.0 Luteal phase 43.8 - 211.0 Postmenopausal <6.0 - 54.7 1st trimester 215.0 - >4300.0 Zac ECLIA methodology Prolactin-[id number] Reviewed date:12/29/2024 11:54:52 AM Interpretation:9.2 Normal Performing Lab:[facility] [address], Phone - [phone], Director - MDJodry Notes/Report: Prolactin 9.2 4.8-33.4 ng/mL FSH-[id number] Reviewed date:12/29/2024 11:54:28 AM Interpretation:9.2 Normal Performing Lab:[facility], Phone - [phone], Director - MDJodry Notes/Report: FSH 9.2 Adult Female Range Follicular phase 3.5 - 12.5 Ovulation phase 4.7 - 21.5 Luteal phase 1.7 - 7.7 Postmenopausal 25.8 - 134.8 Hemoglobin M4h-[id number] Reviewed date:12/29/2024 11:53:02 AM Interpretation:5.5%, Normal Performing Lab[place] [place], [address], [place], Phone - [phone], Director - Jacob Notes/Report: Hemoglobin A1c 5.5 [...] W/U Status Risk Notes Problem Irregular menstruation ([id number]) Irregular menstruation, unspecified (N92.6) Active confirmed Vital Signs Blood pressure diastolic 84 mm Hg 05/01/2025 Height 5'2 in 05/01/2025 Blood pressure systolic 130 mm Hg 05/01/2025 Weight 166.3 lbs 05/01/2025 BMI 30.41 kg/m2 05/01/2025 Encounters Encounter Location Date Provider Diagnosis [address] [id number] 12/12/2024 HARSHIL CARBALLO Counseling, unspec ified Z71.9 ; Irregular menstruation, unspecified N92.6 and Encounter for screening for diabetes mellitus Z13.[address] [id number] 01/09/2025 HARSHIL CARBALLO Vaginitis, Acute N 76.0 ; Encounter for screening for other infectious and parasitic diseases Z11.8 ; Counseling, unspecified Z71.9 ; Encounter for screening for infections with a predominantly sexual mode of transmission Z11.3 and Other problems related to lifestyle Z72.[address] [id number] 05/01/2025 HARSHIL CARBALLO Screening Breast E xam Z12.39 and Breast tenderness N64.[address] [id number] 12/17/2024 HARSHIL CARBALLO [address] [id number] 12/29/2024 HARSHIL CARBALLO Assessments Encounter Date Diagnosis [...] the visit Educating the patient Established Patient: [id number] 20 Minutes 05/01/2025 Screening Breast Exam (ICD-10 - Z12.39) Spent 20 minutes doing the following: Chart Prep Obtaining/rev iewing history Performing medically necessary exam Counseling/Co ordination of Care Documenting the visit Educating the patient Established Patient: [id number] 20 Minutes 01/09/2025 Counseling, unspecified (ICD-10 - [...] clt can always schedule a consult with [facility] for hysterectomy but to be aware that [...] Insured Coverage Start Date Coverage End Date [place]ICA[place] ATT CLAIMS [address] [place] [id number] Daniel Sung Self - patient is the insured Medical (General) History Medical History History ICD Code Asthma Seizures Weight concerns Migraines, head pressure Fibromyalgia Vertigo Stomach problems
[2025-07-16] MEDS: iohexoL 350 MG/ML 100 ML INFUS..BTL 85 ML IV (21:36)
[2025-07-16 22:15] VITALS: BP 122/75; PULSE 74; RESP 18; TEMP 36.8; O2SAT 99
[2025-07-16 22:25] LABS: Appearance Urine Turbid; Glucose Urine UA Negative (Negative); PH 6.5 (5.0-9.0); Specific Gravity - Urine 1.015 (1.005-1.025); UMIC TRIGGER UACC YES
[2025-07-16 22:39] LABS: UACC Culture Trigger YES
[2025-07-16 23:13] VITALS: BP 122/75; PULSE 74; RESP 18; TEMP 36.8; O2SAT 99
== END 2025-07-16 23:21 | disposition home or self-care (01) ==
PROVIDERS: Physician Assistant; Emergency Provider Student in an Organized Health Care Education/Training Program; PCP Internal Medicine
DX: R10.84 Generalized abdominal pain (principal); R11.0 Nausea
CPT/HCPCS: 36415; 74177; 80053; 81001; 83690; 84702; 85025; 87086; 99284; 99285; Q9967

== ENCOUNTER → 2025-07-16 20:44 | Outpatient (BNV) | payer OTHER, SELFPAY | PROVIDERS: Emergency Provider Student in an Organized Health Care Education/Training Program; PCP Internal Medicine; Visit Provider Specialist | DX: R10.10 Upper abdominal pain, unspecified (principal) | CPT/HCPCS: 74177 ==

== ENCOUNTER 2025-08-04 06:56 | Day surgery (SDC) | payer OTHER, SELFPAY ==
[2025-07-31 07:50] VITALS: BMI 26.0
--- NOTE | 2025-07-31 09:40 | HO.ANESPROP2 ---
Documented by User: Katherine Clinton NP 07/31/25 09:41 HPI - Anesthesia Eval Consult details Narrative: 35yo F for Cholecystectomy Laparoscopic,possible open PMFSH Active Problems Active Problems: All Active Problems Biliary dyskinesia (Acute) Chronic abdominal pain (Acute) Dysfunctional gallbladder (Acute) Bilateral headaches (Acute) Bloating (Acute) Voice hoarseness (Acute) Nausea (Acute) Change in bowel habit (Acute) Abdominal pain (Acute) Lumbar pain (Acute) Snoring (Acute) Hypersomnia (Acute) Paresthesia and pain of both upper extremities (Acute) Back pain (Acute) Cervical spondylosis (Acute) Neck pain (Acute) Psychogenic nonepileptic seizure (Acute) Chronic daily headache (Acute) Chronic migraine with aura (Acute) Oligomenorrhea (Acute) Cervical cancer screening (Acute) Screen for sexually transmitted diseases (Acute) History of irregular menstrual bleeding (Acute) Hirsutism (Acute) Well woman exam with routine gynecological exam (Acute) Renal calculi (Acute) Memory loss (Acute) Right hip pain (Acute) Mild asthma (Acute) Left otitis media (Acute) Weakness (Acute) Pressure in head (Acute) Multiple allergies (Acute) Physical exam (Acute) Night terrors (Acute) Skin lesion (Acute) Right hand pain (Acute) Left hand pain (Acute) Physical exam (Acute) Insomnia due to other mental disorder (Acute) EMELY (generalized anxiety disorder) (Acute) Mild major depression, single episode (Acute) Abdominal pain (Acute) Overweight (BMI 25.0-29.9) (Acute) Hypovitaminosis D (Acute) TMJ (temporomandibular joint disorder) (Acute) Upper back strain (Acute) Headache (Acute) Fibromyalgia (Acute) Well adult exam (Acute) Past Medical History Medical History Biliary dyskinesia Chronic abdominal pain Bilateral headaches Snoring Hypersomnia Back pain Cervical spondylosis Neck pain Psychogenic nonepileptic seizure Chronic daily headache Chronic migraine with aura Right hand pain Left hand pain Physical exam Seizure-like activity Insomnia due to other mental disorder EMELY (generalized anxiety disorder) Mild major depression, single episode Abdominal pain Overweight (BMI 25.0-29.9) Hypovitaminosis D Family History Family History Father No problems noted. Mother HTN (hypertension) Diabetes Family/Other Medical history unknown Substance use disorder Family/Other Mental health disorder Surgical History Surgical History History of esophagogastroduodenoscopy (EGD) History of carpal tunnel surgery Social History Social History Housing: Apartment Alcohol intake: current Alcohol intake frequency: holidays/special occasions only Patient Tobacco Use Status: Never used Tobacco e-Cigarette/Vaping Use: Never Used Second Hand Smoke Exposure: Yes Have you been hit, kicked, punched, or otherwise hurt by someone within the past year? If so, by whom?: No Advance Directives: No Advance Directives Information Provided: Yes service: No Current occupational status: unemployed Cognitive needs: No Hearing needs: No Vision needs: No Meds Allergies Allergy/AdvReac Type Severity Reaction Status Date / Time pine nut Allergy Mild Rash Verified 07/16/25 15:58 Seasonal Allergies Allergy Mild Runny Nose Verified 07/16/25 15:58 face paint Allergy Intermediate face Uncoded 07/16/25 15:58 breaks out epsom salt AdvReac Severe nimbness Uncoded 07/16/25 15:58 from head to toe. Home Medications ?Medication ?Instructions ?Recorded ?Confirmed ?Last Taken ?Type fluticasone propionate 115 2 puff inhalation BID 05/11/23 07/31/25 Unknown History mcg-salmeterol 21 mcg/actuation HFA inhaler (Advair HFA) inhalational spacing device #1 ea 05/11/23 07/31/25 Unknown History (John[facility] Patton [facility] spacer) escitalopram oxalate 20 mg tablet 20 mg PO QAM 07/15/25 07/31/25 Unknown History lisdexamfetamine 10 mg capsule 10 mg PO QAM 07/15/25 07/31/25 Unknown History (Vantonella) Exam Height,Weight and Vital Signs: Height 5 ft 6 in Weight 73.028 kg Pertinent Lab Results Pertinent Lab Results: Laboratory Tests 07/16/25 16:06 WBC 11.5 H Hgb 13.6 Hct 39.7 Plt Count 345 Sodium 141 Potassium 3.7 Chloride 108 Carbon Dioxide 26 BUN 4 L Creatinine 0.67 Assessment and Plan Assessment Anesthesia Assessment: Chart Reviewed Documented by User: Tom Collins MD 08/04/25 10:35 [facility] Past Medical History Medical History Biliary dyskinesia Chronic abdominal pain Bilateral headaches Snoring Hypersomnia Back pain Cervical spondylosis Neck pain Psychogenic nonepileptic seizure Chronic daily headache Chronic migraine with aura Right hand pain Left hand pain Physical exam Seizure-like activity Insomnia due to other mental disorder EMELY (generalized anxiety disorder) Mild major depression, single episode Abdominal pain Overweight (BMI 25.0-29.9) Hypovitaminosis D Family History Family History Father No problems noted. Mother HTN (hypertension) Diabetes Family/Other Medical history unknown Substance use disorder Family/Other Mental health disorder Family history of problems with anesthesia: No Surgical History Surgical History History of esophagogastroduodenoscopy (EGD) History of carpal tunnel surgery History of Problems with Anesthesia: No Social History Social History Housing: Apartment Alcohol intake: current Alcohol intake frequency: holidays/special occasions only Patient Tobacco Use Status: Never used Tobacco e-Cigarette/Vaping Use: Never Used Second Hand Smoke Exposure: Yes Have you been hit, kicked, punched, or otherwise hurt by someone within the past year? If so, by whom?: No Advance Directives: No Advance Directives Information Provided: Yes service: No Current occupational status: unemployed Cognitive needs: No Hearing needs: No Vision needs: No Meds Allergies Allergy/AdvReac Type Severity Reaction Status Date / Time pine nut Allergy Mild Rash Verified 07/16/25 15:58 Seasonal Allergies Allergy Mild Runny Nose Verified 07/16/25 15:58 face paint Allergy Intermediate face Uncoded 07/16/25 15:58 breaks out epsom salt AdvReac Severe nimbness Uncoded 07/16/25 15:58 from head to toe. Home Medications ?Medication ?Instructions ?Recorded ?Confirmed ?Last Taken ?Type fluticasone propionate 115 2 puff inhalation BID 05/11/23 07/31/25 Unknown History mcg-salmeterol 21 mcg/actuation HFA inhaler (Advair HFA) inhalational spacing device #1 ea 05/11/23 07/31/25 Unknown History (John[facility] Patton [facility] spacer) escitalopram oxalate 20 mg tablet 20 mg PO QAM 07/15/25 07/31/25 Unknown History lisdexamfetamine 10 mg capsule 10 mg PO QAM 07/15/25 07/31/25 Unknown History (Estephanie) Exam Airway Mallampati Class: II TM Dist: >3cm Neck ROM: Full Assessment and Plan Assessment Anesthesia Assessment: Anesthesia Plan Discussed Final Anesthetic Review Family History of Problems with Anesthesia: No History of Problems with Anesthesia: No NPO: Yes ASA Class: II Final Preanesthetic Review: No Changes in Pt Med Stat, Meds/Allgs Chart Reviewed, Consent Obtained/Reviewed and Anes Risks/Benef Reviewed Patient Risk: Low Procedure Risk: Low Anesthetic Plan Anesthetic Plan: GA Disposition: Standard PACU
[2025-08-04] VITALS (8 sets, daily range): BP systolic 103–122; BP diastolic 43–98; PULSE 70–80; RESP 11–20; TEMP 36.6–36.9; O2SAT 96–100
[2025-08-04 07:22] LABS: UPreg QC Valid YES
[2025-08-04] MEDS: Lactated Ringers 1,000 ML 100 ML IVCONT (07:27)
--- NOTE | 2025-08-04 08:14 | MHC.SHP ---
Pre-Procedural Eval Section A - 24 Hr Update-Section A only Date of Service: 08/04/25 Section B - Complete if H&P > 30 days Chief Complaint: abdominal pain,chronic pain,diseases of gallbladde Details of Present Illness: Has chronic abdominal pain, with biliary dyskinesia Relevant Family History (Specify if Yes): No Relevant Social History: None Present Medications: see Short Stay Collaborative assessment Medical History: Significant History (Hypersomnia, chronic back pain, anxiety and depression, fibromyalgia) Allergies: Allergies Allergy/AdvReac Type Severity Reaction Status Date / Time pine nut Allergy Mild Rash Verified 07/16/25 15:58 Seasonal Allergies Allergy Mild Runny Nose Verified 07/16/25 15:58 face paint Allergy Intermediate face Uncoded 07/16/25 15:58 breaks out epsom salt AdvReac Severe nimbness Uncoded 07/16/25 15:58 from head to toe. Review of Systems Sugical H&P ROS: Negative: Constitution, Cardiovascular, Respiratory and Genitourinary Exam Surgical H&P Exam: Normal: Heart, Normal: Lungs and Normal: Abdomen Plan Diagnosis/Plan: Unchanged I have reviewed the history and physical and performed a pertinent physical examination on my patient. No changes have occurred unless specified. Time Spent With Patient Time: Total time managing care of this patient today ____ minutes.
[2025-08-04] MEDS: cefoTEtan disodium 2 GM VIAL IVPUSH (08:55)
--- NOTE | 2025-08-04 09:37 | P.OP_ITS ---
Operative Note Operative Note Date of Service: 08/04/25 Narrative: Preop diagnosis: Biliary dyskinesia Postop diagnosis: The same Procedure: Laparoscopic cholecystectomy Surgeon: Bhavik Mendoza MD dental assistant medical assistant: MELISA Linares The patient is a 35 year old female with long history of abdominal pain. She had a HIDA scan showed ejection fraction of 97% consistent with biliary hyperkinesia. In view of the absence of any other pathology that explained to her chronic abdominal pain, she was offered the option of cholecystectomy for biliary dyskinesia. She understood the technique of the planned procedure. She was aware of the risks, benefits, and alternatives. She had given consent. She was brought to the operating room and placed supine under general anesthesia via endotracheal tube. The abdomen was prepped and draped in the usual sterile fashion. A surgical time-out was done. The patient received Cefotan 2 g IV preoperatively. I made a short incision on the supraumbilical area using blade 15. This was carried down through the full-thickness of the skin and thick subcutaneous fat to the fascia. The fascia was incised. The peritoneum was entered. Through this incision a Malcolm port was introduced pneumoperitoneum was introduced to a pressure of 15 mm Hg. From here on the rest of procedure was done under vision with the 10 mm flat laparoscope. With laparoscopic visualization, I inserted a 5/12 mm port in the epigastric area. Two 5 mm ports introduced a small incision below the subcostal margin along the anterior axillary line and the midclavicular line. Graspers were placed through these working ports. The patient was placed in a head up and [id number] position The gallbladder was seen. This was supple and nondistended without any signs of inflammation . I was able to apply a grasper at the fundus to retract this cep halad. I proceeded to apply another grasper towards the pouch of the gallbladder to retract this laterally. At this point the gallbladder was being retracted in the cephalad and lateral fashion to put the area of the cystic duct on stretch. I carefully dissected the neck of the gallbladder using the Maryland dissector to tease off the peritoneal lining and by doing so I was able to visualize the cystic duct. With continued dissection using the Maryland dissector, I was able to visualize the cystic duct and its confluence with the neck of the gallbladder. The cystic artery was also seen running alongside this. We had achieved a critical view of the hepatocystic triangle at this point. I therefore applied clips on the cystic duct with 2 clips being applied distally. The cystic duct was transected between clips with Endo scissors. I applied clips on the cystic artery with 2 clips applied distally. The cystic artery was transected with the clips with Endo scissors as well. With traction on the gallbladder away from the liver bed I proceeded to then carefully divide the hilum with the electrocautery spatula. I incised the peritoneum of the gallbladder to create a plane of dissection between the gallbladder wall and the liver bed. I developed this plane of dissection with a combination of blunt dissection with the tip of the spatula as well as electrocautery until the entire gallbladder was completely from the liver bed. The gallbladder was retrieved through an endobag through the umbilical incision. I reinserted all ports and re-insufflated. There was note of good hemostasis on the surgical site including the liver bed. There was note of a small tear in the gallbladder wall during dissection with a little tiny bit of bile spillage from this tear. We therefore copiously irrigated instructions in the irrigant fluid in the end. I observed all 4 quadrants and there was no other pathology seen. There was no evidence of any bowel injury or bile leak. With hemostasis confirmed, we desufflated through the port sites. The ports were removed, with the umbilical port removed last. The fascia of the umbilical incision was closed with a [id number] Polysorb 0 stitch. Skin closure was achieved on all incisions using Polysorb 4-0 subcuticular running sutures. All incisions were infiltrated with Marcaine 0.5% for postop analgesia. Steri-Strips and dressings were applied and the procedure was completed. The patient tolerated the procedure well. There were no immediate complications. Initial and final counts of sponges and instruments were correct. Estimated blood loss was less than 25 cc. The patient was extubated without difficulty and transferred to the recovery room with stable vital signs.
[2025-08-04] MEDS: oxyCODONE HCl Immed Release 5 MG TABLET PO (10:24)
== END 2025-08-04 11:23 | disposition home or self-care (01) ==
PROVIDERS: Nurse Practitioner; PCP Internal Medicine; Visit Provider Surgery
PROC: 0FT44ZZ Resection of Gallbladder, Percutaneous Endoscopic Approach (ICD-10-PCS; CPT 47562; principal; 2025-08-04 08:40)
DX: K81.1 Chronic cholecystitis (principal); R10.11 Right upper quadrant pain; G89.29 Other chronic pain; M79.7 Fibromyalgia; F32.0 Major depressive disorder, single episode, mild; F41.1 Generalized anxiety disorder; F44.5 Conversion disorder with seizures or convulsions; G43.109 Migraine with aura, not intractable, without status migrainosus; E55.9 Vitamin D deficiency, unspecified; Z79.51 Long term (current) use of inhaled steroids; Z79.899 Other long term (current) drug therapy; Z88.8 Allergy status to other drugs, medicaments and biological substances; Z91.018 Allergy to other foods; Z56.0 Unemployment, unspecified
CPT/HCPCS: 47562; 81025; 88304; J0525; J1100; J1171; J1885; J2003; J2405; J2704; J2795; J3010

== ENCOUNTER → 2025-08-04 06:56 | Outpatient (BNV) | payer OTHER, SELFPAY | PROVIDERS: PCP Internal Medicine; Visit Provider Surgery | DX: K82.8 Other specified diseases of gallbladder (principal) | CPT/HCPCS: 47562 ==

== ENCOUNTER 2025-08-18 12:15 | Outpatient (AMB) | payer OTHER, SELFPAY ==
--- NOTE | 2025-08-18 12:16 | MHC.OFFVIS ---
Vital Signs 08/18/25 12:22 Height 5 ft 2 in Weight 156 lb BMI 28.5 BP 116/56 L Blood Pressure Location Rt brachial Position Sitting Pulse 73 Intake Visit Reasons: S/P lap jesus Intake Note: This patient presents for post-op status lap jesus. Pt c/o; reports occasional discomfort and nausea. Top Precipitator Operator Required: No Accompanied by: Self / Same As Patient Allergies pine nut Allergy (Mild, Verified 08/18/25 12:24) Rash Seasonal Allergies Allergy (Mild, Verified 08/18/25 12:24) Runny Nose face paint Allergy (Intermediate, Uncoded 08/18/25 12:24) face breaks out epsom salt Adverse Reaction (Severe, Uncoded 08/18/25 12:24) nimbness from head to toe. HPI HPI S/P lap jesus: Details: Overall doing well. Having some pain at the epigastric port site when driving and going over bumps. Some mild nausea depending on what she is eating. Denies drainage from incision sites. Denies fevers at home [facility] Medical History Biliary dyskinesia Chronic abdominal pain Bilateral headaches Snoring Hypersomnia Back pain Cervical spondylosis Neck pain Psychogenic nonepileptic seizure Chronic daily headache Chronic migraine with aura Right hand pain Left hand pain Physical exam Seizure-like activity Insomnia due to other mental disorder EMELY (generalized anxiety disorder) Mild major depression, single episode Abdominal pain Overweight (BMI 25.0-29.9) Hypovitaminosis D Surgical History (Updated 08/18/25 @ 12:44 by Taj Stearns PA-C) History of laparoscopic cholecystectomy (~08/04/25) History of esophagogastroduodenoscopy (EGD) History of carpal tunnel surgery Family History Father No problems noted. Mother HTN (hypertension) Diabetes Family/Other Medical history unknown Substance use disorder Family/Other Mental health disorder Social History Housing: Apartment Alcohol intake: current Alcohol intake frequency: holidays/special occasions only Comment: medicated Patient Tobacco Use Status: Never used Tobacco e-Cigarette/Vaping Use: Never Used Second Hand Smoke Exposure: Yes service: No Current occupational status: unemployed Cognitive needs: No Hearing needs: No Vision needs: No Female Reproductive History Menstrual Age of Menarche: 9 Review of Systems Const All systems reviewed & are unremarkable except as noted in HPI and below Physical Exam Vital Signs: Last Vital Signs Pulse 73 08/18/25 12:22 BP 116/56 L 08/18/25 12:22 BMI result Body Mass Index 28.5 Const General: comfortable and no acute distress Orientation/consciousness: patient oriented x3 Resp Effort & Inspection: normal respiratory effort and able to speak in complete sentences GI Other: Incisions clean dry intact, appear to be healing well. No surrounding erythema, no drainage Inspection: No distended Palpation (GI): Soft to palpation and Tenderness to palpation present (GI) (Incisional) Neuro General: patient oriented x3 Assessment & Plan Assessment & Plan (1) History of laparoscopic cholecystectomy: Onset Date: ~08/04/25 Comment: Dr. Reji KIRK FACS Code(s): Z90.49 - Acquired absence of other specified parts of digestive tract Category: Surgical Plan 35-year-old female SP laparoscopic cholecystectomy on 08/04/[address] Mendoza returning to the office for follow up. Things have been going well, pain minimal, sometimes gets pain with certain movements, especially when driving going over bumps feels pain at the epigastric port site. Feels as though she is improving as it has only been 2 weeks. Tolerating diet well. Trying to make some adjustments to her diet, cutting out caffeine, low-fat diet, avoiding milk and milk products. Having some constipation bowel movements every other day, baseline is daily. She is not taking any narcotics. Recommended increasing fiber and water intake. On exam abdomen soft, some incisional site tenderness, appropriate at this point postoperatively. Incisions are clean and dry. Some mild induration as likely scar tissue as incision sites are healing. She had some concern about this I reassured her that again this is scar tissue, she can use warm compresses 2 to 3 times a day with some gentle massage to the area which could help soften this up. Advised her to avoid creams, submerging incisions in water. We reviewed pathology showing chronic cholecystitis. We will continue with activity restrictions no heavy lifting greater than 15-20 lb for 2 weeks She will return in 2 weeks for follow up. Coding Level of Care Code Global (30906) Diagnoses History of laparoscopic cholecystectomy Z90.49
[2025-08-18 12:22] VITALS: BP 116/56; PULSE 73; BMI 28.5
--- OUTSIDE RECORDS SUMMARY | 2025-08-18 14:20 | XMS_ITS | Clinical Summary ---
Author Organization [address] [facility] Address [address] [place] [address] Phone Care Team Providers Care Sports Reporter Name Role Phone Malika Moore MD Primary Care Provider [phone] Allergies Active Allergy Reactions Criticality Noted Date [...] Depression Screening 09/17/2024 COVID-19 Vaccine (1 - 2024-2 6 season) 2025 Influenza Vaccine (#1) 2025 DTaP,Tdap,and [...] patient's age to complete this topic Insurance [facility] Care Teams Sports Reporter Relationship Specialty Start Date End Date Malika Moore MD [address] [place] [address] , [address] [facility] D[facility]A: [facility] DARYL Veronica PCP - General Internal Medicine 01/20/22
== END 2025-08-18 12:33 | disposition home or self-care (01) ==
LOC: HO.HGS 12:16
PROVIDERS: PCP Internal Medicine
DX: Z90.49 Acquired absence of other specified parts of digestive tract (principal)
CPT/HCPCS: 99024

== ENCOUNTER → 2025-08-18 12:15 | Outpatient (BNVA) | payer OTHER, SELFPAY | PROVIDERS: PCP Internal Medicine | DX: Z48.815 Encounter for surgical aftercare following surgery on the digestive system (principal); R10.31 Right lower quadrant pain; Z90.49 Acquired absence of other specified parts of digestive tract | CPT/HCPCS: 99212 ==

== ENCOUNTER 2025-09-01 09:07 | Outpatient (AMB) | payer OTHER, SELFPAY ==
--- NOTE | 2025-09-01 09:09 | A.OFFVIS_ITS ---
Vital Signs 09/01/25 09:18 Height 5 ft 2 in Weight 155 lb BMI 28.3 BP 111/63 Blood Pressure Location Rt brachial Position Sitting Pulse 79 Intake Visit Reasons: 2wk S/P lap jesus Intake Note: Pt presents for 2 week follow-up status post lap jesus. Pt c/o; reports felt a pull sensation while doing laundry last wk. Also, reports her dog accidentally jumped on belly. Feels abdomen uncomfortable, only able to lay on back. Taking Ibuprofen as needed. [place] Marshal Required: No Accompanied by: Self / Same As Patient Allergies pine nut Allergy (Mild, Verified 09/01/25 09:19) Rash Seasonal Allergies Allergy (Mild, Verified 09/01/25 09:19) Runny Nose face paint Allergy (Intermediate, Uncoded 09/01/25 09:19) face breaks out epsom salt Adverse Reaction (Severe, Uncoded 09/01/25 09:19) nimbness from head to toe. HPI HPI 2wk S/P lap jesus: Details: Doing okay, struggling with some pain. States that the other day was doing laundry and had some sharp abdominal pain in the belly button after doing a lot of repeated bending over. States that later her dog bumped into her abdomen which caused more pain. Having some difficulty finding a comfortable spot to sleep has been she lays on her side she has similar discomfort. She denies any bleeding from the sites, no redness. Otherwise diet has been good, and a few episodes of diarrhea, loose stools but these are infrequent. States some of this may be hearing anxiety about doing something to the incision site [facility] Medical History Biliary dyskinesia Chronic abdominal pain Bilateral headaches Snoring Hypersomnia Back pain Cervical spondylosis Neck pain Psychogenic nonepileptic seizure Chronic daily headache Chronic migraine with aura Right hand pain Left hand pain Physical exam Seizure-like activity Insomnia due to other mental disorder EMELY (generalized anxiety disorder) Mild major depression, single episode Abdominal pain Overweight (BMI 25.0-29.9) Hypovitaminosis D Surgical History (Updated 08/18/25 @ 12:44 by Taj Stearns PA-C) History of laparoscopic cholecystectomy (~08/04/25) History of esophagogastroduodenoscopy (EGD) History of carpal tunnel surgery Family History Father No problems noted. Mother HTN (hypertension) Diabetes Family/Other Medical history unknown Substance use disorder Family/Other Mental health disorder Social History Housing: Apartment Alcohol intake: current Alcohol intake frequency: holidays/special occasions only Comment: medicated Patient Tobacco Use Status: Never used Tobacco e-Cigarette/Vaping Use: Never Used Second Hand Smoke Exposure: Yes service: No Current occupational status: unemployed Cognitive needs: No Hearing needs: No Vision needs: No Female Reproductive History Menstrual Age of Menarche: 9 Physical Exam Vital Signs: Last Vital Signs Pulse 79 09/01/25 09:18 BP 111/63 09/01/25 09:18 BMI result Body Mass Index 28.3 Const General: comfortable and no acute distress Orientation/consciousness: patient oriented x3 GI Other: Incision sites clean dry well healed, no surrounding erythema, no fluid collections Inspection: No distended Palpation (GI): Soft to palpation and Tenderness to palpation present (GI) (Some tenderness at the incision sites epigastric umbilical, light palpation) Neuro General: patient oriented x3 Assessment & Plan Assessment & Plan (1) History of laparoscopic cholecystectomy: Onset Date: ~08/04/25 Comment: Dr. Reji KIRK FACS Code(s): Z90.49 - Acquired absence of other specified parts of digestive tract Category: Medical Plan 35-year-old female SP laparoscopic cholecystectomy on 08/04/[address] Mendoza returning to the office for follow up. Things have been going okay, but has had some increased pain since she did some laundry the other day which required repeated bending over. She subsequently began her menstrual cycle so was unsure if this was related to her pain. Then later that week her dog bumped into her abdomen which increased her pain. Additionally having difficulty finding a comfortable spot to lay down as she feels some burning pain on her side when she lays on her side. At this point likely this is some irritation damage with the nurse from trocar sites, reassured her that this should improve over the next month or so. She reports a few episodes of diarrhea but have been intermittent. Reassured her this is common after cholecystectomy and should improve as her body regulates over the next few months. Tolerating diet well. On exam abdomen soft, some incisional site tenderness at the epigastric and umbilical incision sites to light palpation which suggests more of nerve irritation. Incisions are clean and dry. I was unable to appreciate an incisional hernia with Valsalva during the exam. There is no concern for infection. At this point no longer requiring activity restrictions recommended she started to have her baseline and progress towards her desire daily level of activity. We are in agreement that for pain is not improving over the next few months that she can return to work up a possible etiology for her pain. She will return as needed with any questions or concerns Coding Level of Care Code Global (74048) Diagnoses History of laparoscopic cholecystectomy Z90.49
[2025-09-01 09:18] VITALS: BP 111/63; PULSE 79; BMI 28.3
--- OUTSIDE RECORDS SUMMARY | 2025-09-01 10:24 | XMS_ITS | Clinical Summary ---
Author Organization [facility] Address [address] [place] [address] Phone Care Team Providers Care Production Expediter Name Role Phone Malika Moore MD Primary Care Provider [phone] Allergies Active Allergy Reactions Criticality Noted Date [...] 1:03 PM EST Sexual Orientation Lesbian or Lcancy 09/26/2024 1: 03 PM EST Last Filed Vital Signs Vital Sign Reading [...] patient's age to complete this topic Insurance [facility] Care Teams Production Expediter Relationship Specialty Start Date End Date Malika Moore MD [address] [place] [address] , [address] [facility] D/B/A: [facility] DARYL Veronica PCP - General Internal Medicine 01/20/22
--- OUTSIDE RECORDS SUMMARY | 2025-09-01 10:25 | XMS_ITS | Patient Health Record ---
Author Organization [facility] Address [address] [place] [address] Care Team Providers Care Drain Tiler Name Role Phone HARSHIL CARBALLO Unavailable [phone] Allergies Allergen (clinical drug ingredient) Drug/Non Drug Allergy documented on EMR Reaction Allergy Type Onset Date Status Cat dander Cat Dander Unknown Allergy Active Dust Mites Unknown Allergy Active Mold Unknown Allergy Active Pollen Pollen Unknown Allergy Active Rodents Unknown Allergy Active Results Component Value Reference Range Notes TSH reflex to [id number] Reviewed date:12/29/2024 11:53:19 AM Interpretation:1.31 Normal Performing Lab:[facility], [address] [place] [address], Phone - [phone], Director - MDJodry Notes/Report: TSH 1.310 0.450-4.500 uIU/mL Estradiol-[id number] Reviewed date:12/29/2024 11:54:06 AM Interpretation:27.2 Normal Performing Lab:[facility], [address] [place] [address], Phone - [phone], Director - MDJodry Notes/Report: Estradiol 27.7 Adult Female Range Follicular phase 12.5 - 166.0 Ovulation phase 85.8 - 498.0 Luteal phase 43.8 - 211.0 Postmenopausal <6.0 - 54.7 1st trimester 215.0 - >4300.0 Zac ECLIA methodology [id number] Reviewed date:12/29/2024 11:54:52 AM Interpretation:9.2 Normal Performing Lab:[facility], [address] [facility], Phone - [phone], Director - MDJodry Notes/Report: Prolactin 9.2 4.8-33.4 ng/mL [id number] Reviewed date:12/29/2024 11:54:28 AM Interpretation:9.2 Normal Performing Lab:[facility], [address] [place] [address], Phone - [phone], Director - [facility] Notes/Report: FSH 9.2 Adult Female Range Follicular phase 3.5 - 12.5 Ovulation phase 4.7 - 21.5 Luteal phase 1.7 - 7.7 Postmenopausal 25.8 - 134.8 Hemoglobin [id number] Reviewed date:12/29/2024 11:53:02 AM Interpretation:5.5%, Normal Performing Lab:[facility], [address] [place] [address], Phone - [phone], Director - MDKayleeny Notes/Report: Hemoglobin A1c 5.5 4.8-5.6 % . Prediabetes: 5.7 - 6.4 Diabetes: >6.4 Glycemic control for adults with diabetes: <7.0 NuSwab VG+, Jossy 6sp-1800 68 Reviewed date:01/14/2025 09:42:42 AM Interpretation:Negative Performing Lab:[facility], [address] [place] [address], Phone - [phone], Director - OHLilli Notes/Report: and Drug Administration. by [employer]. It has not been cleared or approved by the [employer] and its performance characteristics determined 673663-Nsusenm krusei, NATACHA 290679-J parapsilosis/tropicalis; 082911-Gjzmzfg lusitaniae, NATACHA; Test(s) 716352-Zwyipbe albicans, NATACHA; 814229-Polacec glabrata, NATACHA; and Drug Administration. by [employer]. It has not been cleared or approved by the [employer] and its performance characteristics determined Megasphaera 1 Test(s) 475642- Atopobium vaginae; 650206- BVAB 2; 413647- Atopobium vaginae Low - 0 BVAB 2 [...] into sexual activities? Yes Currently: No drugs, residential, safety, other. No Housing Social Info Question Answer Notes Housing The client's current living situation is: stable housing Tobacco Use: Social Info Question Answer Notes Tobacco Use: Do you/have you used tobacco? No Tobacco Smoking Status Never smoker Problems Problem Type SNOMED Code ICD Code Onset Dates Problem Status W/U Status Risk Notes Problem Irregular menstruation (29527687) Irregular menstruation, unspecified (N92.6) Active confirmed Vital Signs Blood pressure diastolic 84 mm Hg 05/01/2025 Height 5'2 in 05/01/2025 Blood pressure systolic 130 mm Hg 05/01/2025 Weight 166.3 lbs 05/01/2025 BMI 30.41 kg/m2 05/01/2025 Encounters Encounter Location Date Provider Diagnosis [address] [id number] 12/12/2024 HARSHIL CARBALLO Counseling, unspec ified Z71.9 ; Irregular menstruation, unspecified N92.6 and Encounter for screening for diabetes mellitus Z13.[address] [id number] 01/09/2025 HARSHIL CARBALLO Vaginitis, Acute N 76.0 ; Encounter for screening for other infectious and parasitic diseases Z11.8 ; Counseling, unspecified Z71.9 ; Encounter for screening for infections with a predominantly sexual mode of transmission Z11.3 and Other problems related to lifestyle Z72.[address] [id number] 05/01/2025 HARSHIL CARBALLO Screening Breast E xam Z12.39 and Breast tenderness N64.[address] [id number] 12/17/2024 HARSHIL CARBALLO [address] [id number] 12/29/2024 HARSHIL CARBALLO Assessments Encounter Date Diagnosis [...] the visit Educating the patient Established Patient: [id number] 20 Minutes 05/01/2025 Screening Breast Exam (ICD-10 - Z12.39) Spent 20 minutes doing the following: Chart Prep Obtaining/rev iewing history Performing medically necessary exam Counseling/Co ordination of Care Documenting the visit Educating the patient Established Patient: [id number] 20 Minutes 01/09/2025 Counseling, unspecified (ICD-10 - [...] clt can always schedule a consult with PROCESS EQUIPMENT OPERATOR for hysterectomy but to be aware [...] Insured Coverage Start Date Coverage End Date [place] ATT CLAIMS [address] [place] [address] [id number] Daniel Sung Self - patient is the insured Medical (General) History Medical History History ICD Code Asthma Seizures Weight concerns Migraines, head pressure Fibromyalgia Vertigo Stomach problems
== END 2025-09-01 09:23 | disposition home or self-care (01) ==
LOC: HO.HGS 09:08
PROVIDERS: PCP Internal Medicine
DX: Z90.49 Acquired absence of other specified parts of digestive tract (principal)
CPT/HCPCS: 99024

== ENCOUNTER → 2025-09-01 09:07 | Outpatient (BNVA) | payer OTHER, SELFPAY | PROVIDERS: PCP Internal Medicine | DX: Z90.49 Acquired absence of other specified parts of digestive tract (principal) | CPT/HCPCS: 99212 ==

== ENCOUNTER 2025-09-07 15:26 | Outpatient (AMB) | payer OTHER, SELFPAY ==
--- NOTE | 2025-09-07 15:30 | A.OFFVIS_ITS ---
Vital Signs 09/07/25 15:33 Height 5 ft 2 in Weight 154 lb 5.177 oz BMI 28.2 BP 114/76 Blood Pressure Location Lt brachial Position Sitting Pulse 80 Intake Visit Reasons: 6w nausea, abdominal pains Intake Note: Daniel presents in the office as a 6 week follow up. CC: States that food stamps got cut and they do not have money to afford food. Been eating not the best. Funeral Planner Required: No Allergies pine nut Allergy (Mild, Verified 09/07/25 15:34) Rash Seasonal Allergies Allergy (Mild, Verified 09/07/25 15:34) Runny Nose face paint Allergy (Intermediate, Uncoded 09/07/25 15:34) face breaks out epsom salt Adverse Reaction (Severe, Uncoded 09/07/25 15:34) nimbness from head to toe. HPI Comments Details: 34 y.o F with PMH of TMJ, fibromyalgia, depression, nonepileptic seizures who is here for R sided abd pain. Has had longstanding GI issues x 5-6 years. Prev GI was in [place] - moved to [place] before covsd. Main issue is RUQ which feels like a rib popping or pulling sensation, RLQ pain as well epigastric pain which is sharp. Pain does not radiate anywhere. Sometimes also has difficulty breathing when pain is severe. Assoc with nausea, but no vomiting. BMs fluctuate between diarrhea and constipation. No fam hx of CRC in FDRs. 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 Does get occasional pet bites and scratches. Celiac serology negative 2020. Pt was also seen in [facility] for similar sx a few weeks ago and had prelim work up including US abd which was normal. 04/21/25: UGIS 1. Notable delay of contrast passage from the stomach into the duodenum. This finding is nonspecific but could indicate gastroparesis. 2. Otherwise, normal upper GI series. 05/20/25: GES Normal 4-hour solid food gastric emptying study. 06/01/25: Here for follow up. Reports persistent sx. Not taking any PPI. Has not taken fiber supplement yet. Labs and imaging reveiwed. Everything normal so far. Her main complaint is abd bloating and frequent belching. Bowels fluctuate between hard and soft, but has a BM daily. 09/07/25: Presenting for follow-up . Pt had an abnormal HIDA with biliary HYPERkinesia. Subsequently underwent lap jesus 08/04. Post-operatively, she has experienced improvement in her nausea, but still complains of persistent gas, bloating, and belching. Her bowel habits have changed from a previous history of constipation to now experiencing intermittent diarrhea after the surgery. She reports a setback in her recovery after overexerting herself resulting in a weird feeling and soreness in her abdominal muscles. She reports that on days she does not have diarrhea she has difficulty evacuating her bowels but trying her best to not strain due to post-surgical discomfort. --- Pt was informed and consented to the use of ambient scribe for this encounter. --- [facility] Medical History Biliary dyskinesia Chronic abdominal pain Bilateral headaches Snoring Hypersomnia Back pain Cervical spondylosis Neck pain Psychogenic nonepileptic seizure Chronic daily headache Chronic migraine with aura Right hand pain Left hand pain Physical exam Seizure-like activity Insomnia due to other mental disorder EMELY (generalized anxiety disorder) Mild major depression, single episode Abdominal pain Overweight (BMI 25.0-29.9) Hypovitaminosis D Surgical History (Updated 08/18/25 @ 12:44 by Taj Stearns PA-C) History of laparoscopic cholecystectomy (~08/04/25) History of esophagogastroduodenoscopy (EGD) History of carpal tunnel surgery Family History Father No problems noted. Mother HTN (hypertension) Diabetes Family/Other Medical history unknown Substance use disorder Family/Other Mental health disorder Social History Housing: Apartment Alcohol intake: current Alcohol intake frequency: holidays/special occasions only Comment: medicated Patient Tobacco Use Status: Never used Tobacco e-Cigarette/Vaping Use: Never Used Second Hand Smoke Exposure: Yes service: No Current occupational status: unemployed Cognitive needs: No Hearing needs: No Vision needs: No Female Reproductive History Menstrual Age of Menarche: 9 Review of Systems Narrative Review of Systems - Gastrointestinal: Reports persistent bloating, excessive gas, and belching following cholecystectomy. - Reports intermittent diarrhea post-operatively, a change from prior constipation. - Reports nausea has improved but is exacerbated by anxiety. - Reports a constant feeling of abdominal fullness and heaviness. - Reports discomfort and inability to strain during defecation. - Musculoskeletal: Reports abdominal muscle soreness and a weird sensation after a minor trauma and overexertion. - Psychiatric: Reports fluctuating anxiety, describing it as feeling shaky with heart palpitations. - Reports a diagnosis of ADHD. Physical Exam Exam Exam: Physical Exam No apparent distress Nonicteric Abdomen soft, nondistended Alert and oriented x3, normal gait Vital Signs: Last Vital Signs Pulse 80 09/07/25 15:33 BP 114/76 09/07/25 15:33 BMI result Body Mass Index 28.2 Assessment & Plan Assessment & Plan (1) Abdominal pain: Code(s): R10.9 - Unspecified abdominal pain Category: Medical (2) Change in bowel habit: Code(s): R19.4 - Change in bowel habit Category: Medical (3) Nausea: Code(s): R11.0 - Nausea Category: Medical (4) Bloating: Code(s): R14.0 - Abdominal distension (gaseous) Category: Medical Plan 1. Post-cholecystectomy syndrome 2. DGIBs The patient's persistent bloating, flatulence, and belching, coupled with new- onset intermittent diarrhea, are likely signs of post-cholecystectomy syndrome. 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 Another Ddx is SIBO. Plan: - Initiate a therapeutic trial with rifaximin 550 mg three times daily for 14 days. 3. Fluctuating bowel habits - The patient reports fluctuating diarrhea with constipation. She specifically notes difficulty with strain due to post-surgical discomfort and fear of injury. Plan: - OK to add senna if no BM for a day - Cont magnesium - Add fiber supplement Follow up 3 months --- Pt was informed and consented to the use of ambient scribe for this encounter. --- Patient Instructions Medications: New sennosides (senna) HOLD for loose stools 8.6 mg PO BEDTIME 90 tabs 0RF rifaximin 550 mg PO TID 42 tabs 0RF 14 days Coding Level of Care Code Est Pt Level 4 (38821) Diagnoses Abdominal pain R10.9 Change in bowel habit R19.4 Nausea R11.0 Bloating R14.0
[2025-09-07 15:33] VITALS: BP 114/76; PULSE 80; BMI 28.2
--- OUTSIDE RECORDS SUMMARY | 2025-09-07 18:27 | XMS_ITS | Clinical Summary ---
Author Organization [facility] Address [address] [place] [address] Phone Care Team Providers Care Meat Puller Name Role Phone Malika Moore MD Primary Care Provider [phone] Allergies Active Allergy Reactions Criticality Noted Date [...] or Clancy 09/26/2024 1: 03 PM EST Last Filed [...] patient's age to complete this topic Insurance [facility] PL[facility] Care Teams Meat Puller Relationship Specialty Start Date End Date Malika Moore MD [address] [place] [address] , [address] [facility] D/B/A: [facility] DARYL Veronica PCP - General Internal Medicine 01/20/22
--- OUTSIDE RECORDS SUMMARY | 2025-09-07 18:27 | XMS_ITS | Patient Health Record ---
Author Organization [facility] Address [address] [place] [address] Care Team Providers Care Computer Programmer Analyst Name Role Phone HARSHIL CARBALLO Unavailable [phone] Allergies Allergen (clinical drug ingredient) Drug/Non Drug [...] 68 Reviewed date:01/14/2025 09:42:42 AM Interpretation:Negative Performing Lab:[facility], [address] [place] [address], [place], Phone - [phone], Director - Jacob Notes/Report: and Drug Administration. by [employer]. It has not been cleared or approved by the [employer] was [employer] and its performance characteristics determined 069700-Aodknnu krusei, NATACHA 264237-E parapsilosis/tropicalis; 491084-Smueura lusitaniae, NATACHA; Test(s) 074755-Aaxrycz albicans, NATACHA; 209287-Rhhpjhh glabrata, NATACHA; and Drug Administration. by [employer]. It has not been cleared or approved by the [employer] was developed and its performance characteristics determined Megasphaera 1 Test(s) 247362- Atopobium vaginae; 806447- BVAB 2; 732110- Atopobium vaginae Low - 0 BVAB 2 [...] Negative Negative Neisseria gonorrhoeae, NATACHA Negative Negative TSH reflex to [id number] Reviewed date:12/29/2024 11:53:19 AM Interpretation:1.31 Normal Performing Lab:[facility] [address], Phone - [phone], Director - MDJodry Notes/Report: TSH 1.310 0.450-4.500 uIU/mL Estradiol-[id number] Reviewed date:12/29/2024 11:54:06 AM Interpretation:27.2 Normal Performing Lab:[facility] [address], Phone - [phone], Director - MDJodry Notes/Report: Estradiol 27.7 Adult Female Range Follicular phase 12.5 - 166.0 Ovulation phase 85.8 - 498.0 Luteal phase 43.8 - 211.0 Postmenopausal <6.0 - 54.7 1st trimester 215.0 - >4300.0 Zac ECLIA methodology [id number] Reviewed date:12/29/2024 11:54:52 AM Interpretation:9.2 Normal Performing Lab:[facility] [address], Phone - [phone], Director - MDJodry Notes/Report: Prolactin 9.2 4.8-33.4 ng/mL FSH-[id number] Reviewed date:12/29/2024 11:54:28 AM Interpretation:9.2 Normal Performing Lab:[facility] [address], Phone - [phone], Director - MDJodry Notes/Report: FSH 9.2 Adult Female Range Follicular phase 3.5 - 12.5 Ovulation phase 4.7 - 21.5 Luteal phase 1.7 - 7.7 Postmenopausal 25.8 - 134.8 Hemoglobin [id number] Reviewed date:12/29/2024 11:53:02 AM Interpretation:5.5%, Normal Performing Lab:[facility], [address], [place], Phone - [phone], Director - Jacob Notes/Report: Hemoglobin A1c 5.5 [...] W/U Status Risk Notes Problem Irregular menstruation (31614878) Irregular menstruation, unspecified (N92.6) Active confirmed Vital Signs Blood pressure diastolic 84 mm Hg 05/01/2025 Height 5'2 in 05/01/2025 Blood pressure systolic 130 mm Hg 05/01/2025 Weight 166.3 lbs 05/01/2025 BMI 30.41 kg/m2 05/01/2025 Encounters Encounter Location Date Provider Diagnosis [address] [id number] 12/12/2024 HARSHIL CARBALLO Counseling, unspec ified Z71.9 ; Irregular menstruation, unspecified N92.6 and Encounter for screening for diabetes mellitus Z13.[address] [id number] 01/09/2025 HARSHIL CARBALLO Vaginitis, Acute N 76.0 ; Encounter for screening for other infectious and parasitic diseases Z11.8 ; Counseling, unspecified Z71.9 ; Encounter for screening for infections with a predominantly sexual mode of transmission Z11.3 and Other problems related to lifestyle Z72.[address] [id number] 05/01/2025 HARSHIL CARBALLO Screening Breast E xam Z12.39 and Breast tenderness N64.[address] [id number] 12/17/2024 HARSHIL CARBALLO [address] [id number] 12/29/2024 HARSHIL CARBALLO Assessments Encounter Date Diagnosis [...] the visit Educating the patient Established Patient: [id number] 20 Minutes 05/01/2025 Screening Breast Exam (ICD-10 - Z12.39) Spent 20 minutes doing the following: Chart Prep Obtaining/rev iewing history Performing medically necessary exam Counseling/Co ordination of Care Documenting the visit Educating the patient Established Patient: [id number] 20 Minutes 01/09/2025 Counseling, unspecified (ICD-10 - [...] clt can always schedule a consult with CAR COUPLER for hysterectomy but to be aware that [...] Insured Coverage Start Date Coverage End Date [place] ATT CLAIMS [address] [place] [id number] Daniel Sung Self - patient is the insured Medical (General) History Medical History History ICD Code Asthma Seizures Weight concerns Migraines, head pressure Fibromyalgia Vertigo Stomach problems
--- OUTSIDE RECORDS SUMMARY | 2025-09-07 18:27 | XMS_ITS | Continuity of Care Document ---
Author Organization [place] - [facility], E[facility] Address [address] [place] [address] Care Team Providers Care Client Business Manager Name Role Phone LYNDA CARRERA Primary Care Provider Assessment Encounter Date Assessment Date Assessment LastModified by Organization Details LastModified Time 08/25/2025 08/25/2025 35-year-old female presents for evaluation of the throat. Fiberoptic laryngoscopy is unremarkable. There is normal mobility of the bilateral vocal cords during phonation and inspiration with good glottic closure. No appreciable masses, lesions, or structural abnormalities. Reassurance was provided. I suspect her throat irritation is multifactorial from postnasal drip secondary to allergies, secondhand smoke exposure, and possible acid reflux. Patient is currently followed by [facility] for subcutaneous immunotherapy. I strongly encouraged to begin Flonase as recommended by her prescription eyeglass maker, in addition to continuing Shea, to better manage her nasal symptoms. I did offer to start her on a trial of omeprazole, however she decline at this time. GERD precautions and vocal hygiene were reviewed. Follow up as needed otherwise. All questions were answered. [email or web address] Not available 08/25/2025 16:51:12 Plan of Treatment Reminders Order Date Submit Date Provider Last Modified By Organization Details Last Modified Time Details Appointments None record ed. Lab None record ed. Referral None record ed. Procedures None record ed. Surgeries None record ed. Imaging None record ed. Medication Orders None record ed. Patient TargetsNo targets recorded. Patient InstructionsNo instructions recorded. Reason for Referral None Reported. Problems Name Problem SNOMED Code Status Onset Date Resolution Date Notes Provider Name and Address Organization Details Recorded Time Throat irritation 460305718 Active 025 MELISA PARKINSON [address] [facility], [place], [address], [facility] - [facility] 5 16:51:32 Posterior rhinorrhea 32994004 Active MELISA PARKINSON [address] [facility],[address], [place], [address], [facility] - [facility] 5 16:53:32 Seasonal allergic rhinitis 723686678 Active MELISA PARKINSON [address] [facility],[address], [place], [address], [facility] - [facility] 5 16:54:12 Feeling of lump in throat 113400844 Active MELISA PARKINSON 100 [facility],[address], [place], [address], [facility] 5 16:54:30 Problem Notes None recorded. Procedures Surgical History Date Name Laterality Status Provider Name and Address Organization Details Recorded Time 08/25/2025 FOL_DP completed MELISA PARKINSON [address] [facility],[address] [address], [place], [address], [facility] 08/25/2025 14:36:34 Imaging Results None recorded. Procedure Notes None recorded. Medical Equipment None Reported. Allergies Allergen ID Allergen Name Allergen Category Reaction Reaction Severity Criticality Documentation Date Start Date Code Code System Note Provider Name and Address Organization Details Recorded Time 351215 cat dander environme nt cough itching mild mild Not available 08/23/2025 Not Available [employer] - prod 5 22:36:57 238556 [employer] environme nt,medica tion hives itching respirato ry distress moderate moderate mild Not available 08/23/2025 46399 6 RxNorm Not Available [employer] - prod 22:36:57 Medications Name Sig Start Date Stop Date Status Note LastModified by Organization Details LastModified Time azithromyci n 250 mg tablet TAKE 2 TABLETS BY MOUTH TODAY, THEN TAKE 1 TABLET DAILY FOR 4 DAYS DIRECTED 08/21 completed Not Available Not Available Not Available fluconazole 150 mg tablet TAKE ONE TABLET BY MOUTH NOW FOR 1 DAY 08/21 completed Not Available Not Available Not Available topiramate 25 mg tablet TAKE 1 TABLET BY MOUTH EVERY DAY AT BEDTIME active Not Available Not Available No t Available oxycodone-a cetaminophe n 5 mg-325 mg tablet TAKE 1 TABLET BY MOUTH EVERY 6 HOURS NEEDED FOR PAIN active Not Available Not Available No t Available famotidine 20 mg tablet TAKE 1 TABLET BY MOUTH EVERY DAY active Not Available Not Available No t Available amitriptyli ne 25 mg tablet TAKE 1 TABLET BY MOUTH EVERYDAY AT BEDTIME active Not Available Not Available No t Available magnesium oxide 400 mg (241.3 mg magnesium) tablet TAKE 1 TABLET BY MOUTH AT BEDTIME active Not Available Not Available No t Available amitriptyli ne 10 mg tablet TAKE 1 TABLET BY MOUTH EVERYDAY AT BEDTIME 08/21 completed Not Available Not Available Not Available baclofen 10 mg tablet TAKE 1 TABLET BY MOUTH EVERYDAY AT BEDTIME active Not Available Not Available No t Available buspirone 10 mg tablet TAKE 1 TABLET BY MOUTH THREE TIMES A DAY active Not Available Not Available No t Available ibuprofen 400 mg tablet TAKE 1 TABLET (400 MG) BY MOUTH EVERY 6 HOURS IF NEEDED FOR MILD PAIN FOR UP TO 7 DAYS. active Not Available Not Available No t Available montelukast 10 mg tablet TAKE 1 TABLET BY MOUTH AT BEDTIME active Not Available Not Available No t Available ibuprofen 600 mg tablet TAKE 1 TABLET (600 MG) BY MOUTH EVERY 6 HOURS NEEDED FOR PAIN active Not Available Not Available No t Available ondansetron 4 mg disintegrat ing tablet TAKE ONE TABLET ORALLY 2 TIMES A DAY NEEDED FOR NAUSEA AND VOMITING FOR 5 DAYS active Not Available Not Available No t Available fluticasone propionate 50 mcg/actuati on nasal spray,suspe nsion TAKE 1 SPRAYS (INTRANAS AL) 2 TIMES PER DAY FOR 90 DAYS active Not Available Not Available No t Available escitalopra m 10 mg tablet TAKE 1 TABLET BY MOUTH EVERY DAY 08/21 completed Not Available Not Available Not Available escitalopra m 20 mg tablet TAKE 1 TABLET BY MOUTH EVERY DAY IN THE MORNING active Not Available Not Available No t Available cholecalcif awilda (vitamin D3) 50 mcg (2,000 unit) capsule TAKE 1 CAPSULE ORALLY DAILY FOR 90 DAYS active Not Available Not Available No t Available Shea Allergy 180 mg tablet 2022 active Not Available Not Available Not Avai lable Vyvanse 10 mg capsule TAKE 1 CAPSULE BY MOUTH EVERY MORNING DIRECTED FOR ATTENTION active Not Available Not Available No t Available Vitals Date Recorded Body height Body mass index (BMI) Body weight Provider Name and Address Organization Details Last Updated DateTime 08/25/2025 157.48 cm 28.9 kg/m2 58649.59 g Galilea Marrero [place] - [facility] 08/25/2025 13:12:53 Social History Question Answer Notes LastModified by Organization D etails LastModified Time How Many Years Have You Consumed Alcohol? 5 [email or web address] Information not available 08/25/2025 What Type Of Substation Operator Automatic Do You Use? None [email or web address] Information not available 08/25/2025 How Many Alcoholic Drinks Do You Consume Per Day On Average? 1 [email or web address] Information not available 08/25/2025 Do You Have Any Pets? No [email or web address] Information not available 08/25/2025 Are You Passively Exposed To Smoke? Yes [email or web address] Information no t available 08/25/2025 Are There Any Smokers In Your House? No [email or web address] Information not available 08/25/2025 Sex: Unknown Functional Status Question Answer Note LastModified by Organizat ion Details LastModified Time How many times per week do you consume alcohol? Less than 1 time per week Information not available 08/25/2025 Do you use any illicit or recreational drugs? No [email or web address] Information not available 08/25/2025 Do you or have you ever used any other forms of tobacco or nicotine? No [email or web address] Information not available 08/25/2025 What is your level of alcohol consumption? Occasional [email or web address] Information not available 08/25/2025 What type of noise exposure are you exposed to? Other [email or web address] Information not available 08/25/2025 Mental Status None recorded. Family History Nothing Reported. Medical History Condition Response Allergies/Hayfever Y Heart Problems N Anxiety Y Tonsil Infections N Emphysema N Migraines Y Thyroid Problems N Glaucoma N Depression Y COPD N Developmental Delay Y Nasal or Sinus Problems Y Anemia N Immune System Disorder Y Anesthesia Complications N Heart Attack ([place]) N Other Skin Condition Y Diabetes N Rhinitis N Bleeding Disorder N Food Allergy N Arthritis Y Hearing Loss N Hyperlipidemia N Cancer N Stroke N Dementia N Nasal polyps N Asthma Y High Cholesterol N Sleep Disorder Y GERD/Reflux N Liver Disease N Headaches Y Fibromyalgia Y Hypertension N Speech Delay N Kidney Disease N Gynecological HistoryNo gynecological history recorded. Obstetrics History GPAL:G 0 P 0 0 0 0 Past Encounters Encounter ID Performer Location Encounter Start Date Encounter Closed Date Diagnosis/Indication Diagnosis SNOMED-CT Code Diagnosis ICD10 Code Diagnosis IMO Codes Diagnosis Note [id number] MELISA PARKINSON [facility] of [address] [address] 08/25/2025 12:43:06 08/25/2025 13:51:51 Throat irritation 578082210 J39.2 51518547 Posterior rhinorrhea 758 09047 R09.82 2557 Seasonal a llergic rhinitis 132766364 J30.2 8210071 Passive smoker 22664766 Z77.22 463199 Feeling of lump in throat 176773676 R09.A2 426744 Health Concerns Section Related Observation LastModified by Organization Detai ls LastModified Time None Recorded Concern Status LastModified by Organization Details LastModified Time None Recorded Payers Encounter Date Sequence Insurance Name Policy Number Policy Link Covered Member ID Link Member ID Guarantor Name 08/25/2025 1 [facility] HEALTH NET PLAN (MEDICAID HMO) STEPHANIE Sung [id number] Daniel Sung Notes Date Note Type Note Provider Name and Address Organization Details Recorded Time 08/25/2025 text/html ROS as noted in the HPI 35-year-old female presents for evaluation of the throat. Patient reports an episode of intense screaming and crying to the top of her lungs back in November. Shortly after, she felt a severe throbbing in her throat over the next several days, described as someone cutting it with a knife and pouring alcohol over it. Patient states the pain has subsided, though she does endorse an intermittent scratchy sensation, as well as globus sensation. She is unsure if her throat has fully healed following the incident. Patient enjoys singing, but cannot reach the high notes as before. Denies fever, chills, night sweats, dysphagia, odynophagia, otalgia, and neck swelling. She has postnasal drip at baseline from seasonal allergies currently treated with Shea and immunotherapy injections through [facility]. Her prescription eyeglass maker had also prescribed Flonase, however she admits she forgets to use it. No known acid reflux. Recently had her gallbladder excised 3 weeks ago. Never smoked but has secondhand smoke exposure. REHANA ZARATE MD [address] [place] [address], [phone], [facility] - [facility] 08/26/2025 07:47:51 OBGyn Episode No OBEpisode recorded.
--- OUTSIDE RECORDS SUMMARY | 2025-09-07 18:27 | XMS_ITS | Data Portability ---
Author Organization [place] - [facility], Allergy Address [address] [address] Care Team Providers Care Tumor Registrar Name Role Phone LYNDA CARRERA Primary Care [...] to begin Flonase as recommended by her paper slitter, in addition to continuing Shea, to better [...] Address Organization Details Recorded Time Throat irritation 757133481 Active 025 MELISA PARKINSON 100 [facility] E [facility], [place], [address], [facility] - [facility] 16:51:32 Posterior rhinorrhea 11609508 Active 025 MELISA PARKNISON 100 [facility], [address] [facility], [place], [address], [facility] - [facility] 5 16:53:32 Seasonal allergic rhinitis 675449609 Active 025 MELISA PARKINSON 100 [facility],[address] [address], [place], [address], [facility] - [facility] 5 16:54:12 Feeling of lump in throat 082182342 Active MELISA PARKINSON 100 [facility],[address] [address], [place], [address], [facility] - [facility] 16:54:30 Problem Notes None recorded. Procedures Surgical History Date Name Laterality Status Provider Name and Address Organization Details Recorded Time 08/25/2025 FOL_DP completed MELISA PARKINSON [address] [address], [place], [address], [facility] 08/25/2025 14:36:34 Imaging Results None recorded. Procedure Notes None recorded. Medical Equipment None Reported. Allergies Allergen ID Allergen Name Allergen Category Reaction Reaction Severity Criticality Documentation Date Start Date Code Code System Note Provider Name and Address Organization Details Recorded Time 260638 cat dander environme nt cough itching mild mild Not available 08/23/2025 Not Available [employer] - prod 22:36:57 934377 [employer] environme nt,medica tion hives itching respirato ry distress moderate moderate mild Not available 08/23/2025 43310 6 RxNorm Not Available [employer] - prod 22:36:57 Medications Name [...] Updated DateTime 08/25/2025 157.48 cm 28.9 kg/m2 24391.59 g Galilea Marrero [place] - [facility] 08/25/2025 13:12:53 Social History Question Answer Notes LastModified by Organization D etails LastModified Time How Many Years Have You Consumed Alcohol? 5 Information not available 08/25/2025 What Type Of Nursing Education Specialist Do You Use? None [email or web address] Information not available 08/25/2025 How Many Alcoholic Drinks Do You Consume Per Day On Average? 1 [email or web address] Information not available 08/25/2025 Do You Have Any Pets? No Information not available 08/25/2025 Are You Passively Exposed To Smoke? Yes Information no t available 08/25/2025 Are There Any Smokers In Your House? No Information not available 08/25/2025 Sex: Unknown Functional Status Question Answer Note LastModified by Organizat ion Details LastModified Time How many times per week do you consume alcohol? Less than 1 time per week [email or web address] Information not available 08/25/2025 Do you use any illicit or recreational drugs? No [email or web address] Information not available 08/25/2025 Do you or have you ever used any other forms of tobacco or nicotine? No Information not available 08/25/2025 What is your level of alcohol consumption? Occasional [email or web address] Information not available 08/25/2025 What type of noise exposure are you exposed to? Other Information not available 08/25/2025 Mental Status None recorded. Family History Nothing Reported. Medical History Condition Response Allergies/Hayfever Y Heart Problems N Anxiety Y Tonsil Infections N Emphysema N Migraines Y Thyroid Problems N Depression Y COPD N Developmental Delay Y Glaucoma N Nasal or Sinus Problems Y Anemia N Immune System Disorder Y Anesthesia Complications N Heart Attack ([place]) N Other Skin Condition Y Diabetes N Rhinitis N Bleeding Disorder N Food Allergy N Hearing Loss N Arthritis Y Hyperlipidemia N Cancer N Stroke N Dementia N Nasal polyps N Asthma Y Sleep Disorder Y High Cholesterol N GERD/Reflux N Liver Disease N Headaches Y Fibromyalgia Y Hypertension N Speech Delay N Kidney Disease N Gynecological HistoryNo gynecological history recorded. Obstetrics History GPAL:G 0 P 0 0 0 0 Past Encounters Encounter ID Performer Location Encounter Start Date Encounter Closed Date Diagnosis/Indication Diagnosis SNOMED-CT Code Diagnosis ICD10 Code Diagnosis IMO Codes Diagnosis Note [id number] MELISA PARKINSON [facility] of [address] [address] 08/25/2025 12:43:06 08/25/2025 13:51:51 Throat irritation 170514278 J39.2 91210456 Posterior rhinorrhea 758 21022 R09.82 2557 Seasonal a llergic rhinitis 364546873 J30.2 3390039 Passive smoker 04181059 Z77.22 928438 Feeling of lump in throat 248354130 R09.A2 071712 Health Concerns Section Related Observation LastModified by Organization Detai ls LastModified Time None Recorded Concern Status LastModified by Organization Details LastModified Time None Recorded Advance Directives Directive None Recorded Payers Insurance Date Sequence Insurance Name Policy Number Policy Link Covered Member ID Link Member ID Guarantor Name 08/25/2025 1 [facility] - HEALTH NET PLAN (MEDICAID HMO) STEPHANIE Sung [id number] Daniel Sung Notes Date Note Type Note [...] treated with Shea and immunotherapy injections through [facility]. Her paper slitter had also prescribed Flonase, however she admits she forgets to use it. No known acid reflux. Recently had her gallbladder excised 3 weeks ago. Never smoked but has secondhand smoke exposure. REHANA ZARATE MD [address] [place] [address], [address], [facility] - [facility] 08/26/2025 07:47:51 OBGyn Episode No OBEpisode recorded.
== END 2025-09-07 16:02 | disposition home or self-care (01) ==
LOC: HO.HGI 15:27
PROVIDERS: PCP Internal Medicine; Visit Provider Internal Medicine
DX: R10.9 Unspecified abdominal pain (principal); R19.4 Change in bowel habit; R11.0 Nausea; R14.0 Abdominal distension (gaseous)
CPT/HCPCS: 99214

== ENCOUNTER → 2025-09-07 15:26 | Outpatient (BNVA) | payer OTHER, SELFPAY | PROVIDERS: PCP Internal Medicine; Visit Provider Internal Medicine | DX: R14.0 Abdominal distension (gaseous) (principal); R10.9 Unspecified abdominal pain; R19.4 Change in bowel habit; R11.0 Nausea | CPT/HCPCS: 99212 ==